=== PATIENT | female | born 1955 | race Caucasian/White ===

== ENCOUNTER 2023-08-20 10:38 | Inpatient (IN) ==
--- NOTE | 2023-08-20 11:50 | Emergency Department Note ---
Impression & Plan ARF (acute renal failure), UTI (urinary tract infection), Hydronephrosis, left ED Provider Note NAME: ALEN HARDING AGE: 68 SEX: F : 1955 ARRIVES VIA: Walk-In INFORMANT: Patient ED PROVIDER(S): Sterling Suero MD CHIEF COMPLAINT: Weakness, confusion, uti. PLAN: Disposition: Admit MEDICAL DECISION MAKING: The patient is a pleasant 68-year-old woman with a past medical history of HTN, anxiety who presents to the emergency department via walk-in accompanied by her son with concern for confusion and generalized weakness, body aches which has been occurring intermittently over the past several weeks initially starting at the end of July related to a urinary tract infection where she was being treated with Bactrim but then had a fall where she was seen at [place] [facility] and then again in follow-up at our facility where her UTI was thought to have persisted and her antibiotic was changed to cefdinir. A right distal radius fracture was also diagnosed. Since then the patient's son reports that she has continued to feel malaise and fatigue and are concerned that her urinary tract infection has returned. They deny any repeat falls. Denies any fevers. She denies any nausea or vomiting or diarrhea. Patient's son reports that she has been drinking fluids but they do not feel as though she is urinating. On my evaluation the patient is fatigued appearing but no distress, afebrile stable vital signs. She appears clinically dry. She has no focal neurologic deficits. Abdomen is nontender. EKG without overt acute ischemia. CXR negative for acute cardiopulmonary process per my personal preliminary review/interpretation. WBC within normal limits. H/H similar to prior. Platelets within normal limits. Chemistry without metabolic acidosis however shows acute renal failure with creatinine of 2.7 with BUN of 33. LFTs without significant abnormality. Initial high-sensitivity troponin was 60, nonspecific with delta 2-hour positive troponin 46. Procalcitonin was elevated at 1.9. UA is suspicious for infection today with positive nitrites, leuk esterase and 1+ bacteria. Review of the patient's prior Emergency Department visit shows that her urine culture did not grow anything however may have been affected by having been Bactrim just prior to this. CT of the ab pelvis was performed and demonstrates 6.2 cm hypodense focus within the upper pole of the left renal sinus and collecting system which could represent the distended renal collecting system or parapelvic cyst which is difficult to assess on noncontrast study however description of moderate dilatation of the upper pole collecting system posteriorly and mild dilatation within the left lower pole collecting system was noted. No obstructing stones were identified. This left-sided hydronephrosis may be related to parapelvic cyst or other type of UPJ J obstruction with repeat CT urogram recommended. Additional note is made of small patchy airspace opacities in the right middle and left lower lobe which may reflect low-grade pneumonitis. Blood cultures were obtained and empiric treatment was initiated with IV ceftriaxone. Given the patient's recurrent urinary tract infections concerned that her hydronephrosis may be related to this and so case was discussed with urology, OLIVIA Olvera with Dr. David MCCOY urology. Agree with close monitoring. They will continue to follow and note and agree with antibiotics and hydration to assess for improvement of renal function for possible repeat CT imaging with contrast for better assessment. If the patient were to become unstable, febrile then more immediate intervention with stenting would be considered. Case was discussed with FELIPA Núñez hospitalist, who will evaluate the patient for admission. Triage Nursing notes reviewed and agree them. Prior/external medical records reviewed Vital Signs: reviewed Differential diagnosis: Infection, dehydration, metabolic abnormality, hypo/hyperglycemia, electrolyte disturbance, anemia, hypoxia, cardiac sources, intracerebral event, toxicologic, neurologic, as well as other pathologies. ER treatment provided: See below. Diagnostics interpreted by me: ECG: Normal sinus rhythm, 88 bpm, no ectopy, nonspecific ST abnormality, no overt ST ovation depression, QTc 534, QRS 82. Cardiac Monitoring: An order for continuous cardiac monitoring was placed and demonstrated ormal sinus rhythm, 88 bpm, no ectopy Laboratory studies: See below Imaging studies: See below Consultation(s): OLIVIA Olvera with Dr. David MCCOY urology FELIPA Núñez hospitalist. HPI: The patient is a pleasant 68-year-old woman with a past medical history of HTN, anxiety who presents to the emergency department via walk-in accompanied by her son with concern for confusion and generalized weakness, body aches which has been occurring intermittently over the past several weeks initially starting at the end of July related to a urinary tract infection where she was being treated with Bactrim but then had a fall where she was seen at [place] [facility] and then again in follow-up at our facility where her UTI was thought to have persisted and her antibiotic was changed to cefdinir. A right distal radius fracture was also diagnosed. Since then the patient's son reports that she has continued to feel malaise and fatigue and are concerned that her urinary tract infection has returned. They deny any repeat falls. Denies any fevers. She denies any nausea or vomiting or diarrhea. Patient's son reports that she has been drinking fluids but they do not feel as though she is urinating. ROS: See above HPI for pertinent positives & negatives. A total of 10 systems reviewed and were otherwise negative. VITALS:See Below PHYSICAL EXAMINATION: GENERAL: Awake, alert, fatigued/uncomfortable-appearing, in no distress HENT: Normocephalic, atraumatic. Oropharynx with dry mucous membranes and otherwise unremarkable. EYES: Normal conjunctiva. Sclera non-icteric. EOMI. No nystamgus. PEARRL. NECK: Supple. No nuchal rigidity. FROM. No JVD. RESPIRATORY: Clear to auscultation. CARDIAC: Regular rate, normal rhythm. Extremities warm and well perfused. Pulses equal. ABDOMEN: Soft, non-distended. No tenderness to palpation. No rebound or guarding. No masses. MUSCULOSKELETAL: Chest examination reveals no tenderness. The back is symmetrical on inspection without obvious abnormality. There is no CVA tenderness to palpation. No joint edema. LOWER EXTREMITIES: Calves are equal size bilaterally and non-tender. No edema. No discoloration. NEURO: No focal sensory or motor deficits noted. SKIN: No rash or jaundice noted. Sterling Suero MD Past Med/Surg History Medical History HTN (hypertension) History of nephrolithiasis Social History Smoking Status: Former smoker Tobacco Type: Cigarettes Hx Alcohol Use: No Hx Substance Use: No Preferred Language: Ukrainian Communication Ability: Effective Financial Adviser Required: No Beliefs That Will Affect Care: None Current Living Situation: Family Feels Safe at Home: Yes Assistive Devices: Glasses Allergies Allergies Allergy/AdvReac Type Severity Reaction Status Date / Time No Known Allergies Allergy Unverified 08/05/23 18:58 Home Meds Home Medications Medication Instructions Recorded Confirmed bupropion HCl 150 mg tablet,12 hr 150 mg PO BID 08/05/23 08/20/23 sustained-release calcium carbonate 600 mg-vitamin 1 tab PO BID 08/05/23 08/20/23 D3 10 mcg (400 unit) tablet (Calcium 600 + D(3)) carvedilol 6.25 mg tablet 6.25 mg PO BID 08/05/23 08/20/23 clonazepam 0.5 mg tablet 0.5 mg PO BID PRN Anxiety 08/05/23 08/20/23 clonidine HCl 0.1 mg tablet 0.1 mg PO PM 08/05/23 08/20/23 duloxetine 60 mg capsule,delayed 60 mg PO BID 08/05/23 08/20/23 release ferrous sulfate 325 mg (65 mg 325 mg PO QAM 08/05/23 08/20/23 iron) tablet (iron) gabapentin 300 mg capsule 300 mg PO BID 08/05/23 08/20/23 losartan 100 mg tablet 100 mg PO QAM 08/05/23 08/20/23 meloxicam 7.5 mg tablet 7.5 mg PO BID 08/05/23 08/20/23 risperidone 1 mg tablet 1 mg PO HS 08/05/23 08/20/23 tolterodine 2 mg tablet 2 mg PO BID 08/05/23 08/20/23 trazodone 100 mg tablet 150 mg PO HS 08/05/23 08/20/23 cefdinir 300 mg capsule 300 mg PO BID 08/20/23 08/20/23 docusate sodium 100 mg capsule 100 mg PO BID 08/20/23 08/20/23 lactobacillus bifidus See Rx Instructions .Route .COMPLEX 08/20/23 08/20/23 Results & Data (ED) Vital Signs Vital Signs - 24 hr 08/20/23 11:00 08/20/23 12:00 08/20/23 12:09 Temperature 36.4 C L Temperature Source Temporal Artery Scan Pulse Rate 89 82 86 Pulse Rate [Apical] Pulse Rhythm [Apical] Pulse Strength [Apical] Respiratory Rate 22 20 Respiratory Effort / Characteristics Non-Labored Spontaneous Respiratory Depth Normal Respiratory Pattern Blood Pressure 102/65 101/61 Blood Pressure [Right Arm] Blood Pressure Mean 77 74 Blood Pressure Mean [Right Arm] Blood Pressure Position [Right Arm] Pulse Oximetry 93 94 Oxygen Delivery Method Room Air Room Air Sepsis New/Unexplained Change in Mental Status No Sepsis Action Taken by Nursing No Action Required 08/20/23 12:23 08/20/23 12:23 08/20/23 12:24 Temperature Temperature Source Pulse Rate Pulse Rate [Apical] 83 Pulse Rhythm [Apical] Regular Pulse Strength [Apical] Normal Respiratory Rate 17 Respiratory Effort / Characteristics Non-Labored Spontaneous Respiratory Depth Normal Respiratory Pattern Regular Blood Pressure Blood Pressure [Right Arm] 101/61 Blood Pressure Mean Blood Pressure Mean [Right Arm] 74 Blood Pressure Position [Right Arm] Semi-fowlers Pulse Oximetry 95 95 95 Oxygen Delivery Method Room Air Room Air Room Air Sepsis New/Unexplained Change in Mental Status Sepsis Action Taken by Nursing 08/20/23 13:00 08/20/23 13:30 08/20/23 14:00 Temperature Temperature Source Pulse Rate 80 82 81 Pulse Rate [Apical] Pulse Rhythm [Apical] Pulse Strength [Apical] Respiratory Rate 24 20 22 Respiratory Effort / Characteristics Respiratory Depth Respiratory Pattern Blood Pressure 119/64 111/67 98/57 L Blood Pressure [Right Arm] Blood Pressure Mean 82 81 70 Blood Pressure Mean [Right Arm] Blood Pressure Position [Right Arm] Pulse Oximetry 96 96 95 Oxygen Delivery Method Room Air Room Air Room Air Sepsis New/Unexplained Change in Mental Status Sepsis Action Taken by Nursing Laboratory Data Attestation: I reviewed the patient's lab results. 08/20/23 11:22 08/20/23 18:14 Lab Results 08/20/23 08/20/23 08/20/23 Range/Units 11:22 12:20 13:07 WBC 8.60 (4.8-10.8) K/ul RBC 4.27 (4.20-5.40) M/uL Hgb 11.6 L (12.0-16.0) g/dl Hct 36.4 L (37.0-47.0) % MCV 85.2 (80.0-100.0) fL MCH 27.2 (25.0-34.0) pg MCHC 31.9 L (32.0-36.0) g/dL RDW Std Deviation 39.1 (36.4-46.3) fL RDW Coeff of Vamsi 12.8 (11.5-14.5) % Plt Count 216 (130-400) K/uL MPV 9.3 L (9.4-12.4) fL Immature Gran % (Auto) 0.7 % Neut % (Auto) 92.2 % Lymph % (Auto) 1.3 % Cannon % (Auto) 2.0 % Eos % (Auto) 3.6 % Baso % (Auto) 0.2 % Neut # (Auto) 7.93 H (1.40-6.50) K/uL Lymph # (Auto) 0.11 L (1.20-3.40) K/uL Cannon # (Auto) 0.17 (0.11-0.59) K/uL Eos # (Auto) 0.31 (0.00-0.50) K/uL Baso # (Auto) 0.02 (0.00-0.20) K/uL Immature Gran # (Auto) 0.06 (0.01-0.20) K/uL PT 12.9 H (9.0-12.0) Seconds INR 1.2 H (0.9-1.1) APTT 32 H (21-31) Seconds PTT Ratio 1.1 Sodium 130 L (136-145) mmol/L Potassium 3.6 (3.5-5.1) mmol/L Chloride 97 L (98-107) mmol/L Carbon Dioxide 25 (21-32) mmol/L Anion Gap 8 (3-11) BUN 33 H (6-23) mg/dl Creatinine 2.72 H (0.6-1.2) mg/dl Est Cr Clr Drug Dosing 20.4 ml/min Est GFR ( Amer) 20.1 ml/min Est GFR (Non-Af Amer) 17.4 ml/min BUN/Creatinine Ratio 12.1 (10-20) Glucose 132 H (70-99(Fasting)) mg/dl Lactate (0.4-2.0) mmol/L Calcium 9.1 (8.6-10.3) mg/dl Phosphorus 4.8 (2.5-4.9) mg/dl Magnesium 1.9 (1.7-2.4) mg/dl Total Bilirubin 1.6 H (0.2-1.0) mg/dl AST 39 (13-39) U/L ALT 43 (7-52) U/L Alkaline Phosphatase 111 H (34-104) U/L Troponin I High Sens 60.7 H* 46.5 H D (0-14) pg/ml Total Protein 6.8 (6.0-8.3) gm/dl Albumin 4.0 (3.4-5.0) gm/dl Globulin 2.8 (2.5-4.0) gm/dl Albumin/Globulin Ratio 1.4 (0.9-2) Procalcitonin 1.90 H (0-0.5) ng/ml TSH 2.882 (0.300-4.500) uIu/ml Urine Color Dark Yellow Urine Appearance Turbid A (Clear) Urine pH 5.0 (4.5-7.5) Ur Specific Watrous 1.023 (1.000-1.030) Urine Protein Trace H (Negative) Urine Glucose (UA) Negative (Negative) Urine Ketones Trace H (Negative) Urine Blood Negative (Negative) Urine Nitrite Positive A (Negative) Urine Bilirubin 1+ H (Negative) Urine Urobilinogen Negative (Negative) Ur Leukocyte Esterase 2+ H (Negative) Urine WBC (Auto) 21-50 H (0-5) /hpf Urine RBC (Auto) 0-2 (0-2) /hpf U Hyaline Cast (Auto) >20 H (0-2) /lpf U Epithel Cells (Auto) 6-10 H (0-2) /hpf Urine Bacteria (Auto) 1+ H (None Seen) SARS-CoV-2 (PCR) NEGATIVE (Negative) Influenza Type A (PCR) Negative (Neg) Influenza Type B (PCR) Negative (Neg) RSV (RT-PCR) Negative (Neg) 08/20/23 Range/Units 13:30 WBC (4.8-10.8) K/ul RBC (4.20-5.40) M/uL Hgb (12.0-16.0) g/dl Hct (37.0-47.0) % MCV (80.0-100.0) fL MCH (25.0-34.0) pg MCHC (32.0-36.0) g/dL RDW Std Deviation (36.4-46.3) fL RDW Coeff of Vamsi (11.5-14.5) % Plt Count (130-400) K/uL MPV (9.4-12.4) fL Immature Gran % (Auto) % Neut % (Auto) % Lymph % (Auto) % Cannon % (Auto) % Eos % (Auto) % Baso % (Auto) % Neut # (Auto) (1.40-6.50) K/uL Lymph # (Auto) (1.20-3.40) K/uL Cannon # (Auto) (0.11-0.59) K/uL Eos # (Auto) (0.00-0.50) K/uL Baso # (Auto) (0.00-0.20) K/uL Immature Gran # (Auto) (0.01-0.20) K/uL PT (9.0-12.0) Seconds INR (0.9-1.1) APTT (21-31) Seconds PTT Ratio Sodium (136-145) mmol/L Potassium (3.5-5.1) mmol/L Chloride (98-107) mmol/L Carbon Dioxide (21-32) mmol/L Anion Gap (3-11) BUN (6-23) mg/dl Creatinine (0.6-1.2) mg/dl Est Cr Clr Drug Dosing ml/min Est GFR ( Amer) ml/min Est GFR (Non-Af Amer) ml/min BUN/Creatinine Ratio (10-20) Glucose (70-99(Fasting)) mg/dl Lactate 0.8 (0.4-2.0) mmol/L Calcium (8.6-10.3) mg/dl Phosphorus (2.5-4.9) mg/dl Magnesium (1.7-2.4) mg/dl Total Bilirubin (0.2-1.0) mg/dl AST (13-39) U/L ALT (7-52) U/L Alkaline Phosphatase (34-104) U/L Troponin I High Sens (0-14) pg/ml Total Protein (6.0-8.3) gm/dl Albumin (3.4-5.0) gm/dl Globulin (2.5-4.0) gm/dl Albumin/Globulin Ratio (0.9-2) Procalcitonin (0-0.5) ng/ml TSH (0.300-4.500) uIu/ml Urine Color Urine Appearance (Clear) Urine pH (4.5-7.5) Ur Specific Watrous (1.000-1.030) Urine Protein (Negative) Urine Glucose (UA) (Negative) Urine Ketones (Negative) Urine Blood (Negative) Urine Nitrite (Negative) Urine Bilirubin (Negative) Urine Urobilinogen (Negative) Ur Leukocyte Esterase (Negative) Urine WBC (Auto) (0-5) /hpf Urine RBC (Auto) (0-2) /hpf U Hyaline Cast (Auto) (0-2) /lpf U Epithel Cells (Auto) (0-2) /hpf Urine Bacteria (Auto) (None Seen) SARS-CoV-2 (PCR) (Negative) Influenza Type A (PCR) (Neg) Influenza Type B (PCR) (Neg) RSV (RT-PCR) (Neg) Administered Medications Acetaminophen (Acetaminophen 325 Mg Tab) 650 mg PO Q4H PRN PRN Reason: Pain or Fever Stop: 09/19/23 15:51 Last Admin: 08/20/23 20:21 Dose: 650 mg Documented By: EFK Bupropion HCl (Bupropion Sr 150 Mg Tabcr) 150 mg PO BID RENE Stop: 09/19/23 20:59 Last Admin: 08/20/23 20:22 Dose: 150 mg Documented By: EFK Carvedilol (Carvedilol 6.25 Mg Tab) 6.25 mg PO BID RENE Stop: 09/19/23 20:59 Last Admin: 08/20/23 20:22 Dose: 6.25 mg Documented By: BROOKEK Clonidine HCl (Clonidine Hcl 0.1 Mg Tab) 0.1 mg PO PM RENE Stop: 09/19/23 20:59 Last Admin: 08/20/23 20:24 Dose: 0.1 mg Documented By: EFK Duloxetine HCl (Duloxetine Hcl 60 Mg Cap) 60 mg PO BID RENE Stop: 09/19/23 20:59 Last Admin: 08/20/23 20:23 Dose: 60 mg Documented By: EFK Gabapentin (Gabapentin 300 Mg Cap) 300 mg PO BID RENE Stop: 09/19/23 20:59 Last Admin: 08/20/23 20:22 Dose: 300 mg Documented By: EFK Parenteral Electrolytes (Plasma-Lyte A Ph 7.4) 1,000 mls @ 120 mls/hr IV .Q8H20M [facility] Stop: 09/19/23 14:44 Last Admin: 08/20/23 15:48 Dose: 120 mls/hr Documented By: FLAQUITA Menthol (Cough Drop (Sugar Free) Ani 24 Ani/1 Box) 1 ani BUCCAL Q2H PRN PRN Reason: Sore Throat Stop: 09/19/23 20:47 Last Admin: 08/20/23 21:02 Dose: 1 ani Documented By: BROOKEK Morphine Sulfate (Morphine Sulfate 4 Mg/Ml 1 Ml Carp\Vial) 4 mg IV Q4H PRN PRN Reason: Severe Pain (7,8,9,10) on NRS Stop: 09/03/23 15:51 Last Admin: 08/20/23 19:07 Dose: 4 mg Documented By: Admin: 08/20/23 16:07 Dose: 4 mg Documented By: FLAQUITA Oxybutynin Chloride (Oxybutynin Chloride Xl 5 Mg Tabcr) 10 mg PO DAILY RENE Stop: 09/19/23 20:59 Last Admin: 08/20/23 21:03 Dose: 10 mg Documented By: SERA Risperidone (Risperidone 1 Mg Tablet) 1 mg PO HS RENE Stop: 09/19/23 20:59 Last Admin: 08/20/23 20:23 Dose: 1 mg Documented By: SERA Trazodone HCl (Trazodone Hcl 100 Mg Tab) 200 mg PO HS RENE Stop: 09/19/23 20:59 Last Admin: 08/20/23 20:23 Dose: 200 mg Documented By: SERA Discontinued Medications Fentanyl Citrate (Fentanyl Citrate Pf 100 Mcg/2 Ml Vial) 50 mcg IV NOW STA Stop: 08/20/23 13:12 Last Admin: 08/20/23 13:23 Dose: 50 mcg Documented By: WOO Hydromorphone HCl (Hydromorphone Inj 0.5 Mg/0.5 Ml Syr) 0.5 mg IV NOW ONE Stop: 08/20/23 20:46 Last Admin: 08/20/23 21:02 Dose: 0.5 mg Documented By: SERA Sodium Chloride (Nss) 1,000 mls @ 999 mls/hr IV .Q1H1M ONE Stop: 08/20/23 12:49 Last Infusion: 08/20/23 12:48 Dose: Infused Documented By: Admin: 08/20/23 11:55 Dose: 999 mls/hr Documented By: SIMRAN Sodium Chloride (Nss) 1,000 mls @ 125 mls/hr IV .Q8H RENE Stop: 09/19/23 12:14 Last Infusion: 08/20/23 14:51 Dose: Infused Documented By: Admin: 08/20/23 12:44 Dose: 125 mls/hr Documented By: SIMRAN Acetaminophen (Ofirmev) 1,000 mg in 100 mls @ 400 mls/hr IV NOW STA Stop: 08/20/23 12:20 Last Infusion: 08/20/23 12:45 Dose: Infused Documented By: Admin: 08/20/23 12:14 Dose: 400 mls/hr Documented By: SIMRAN Ceftriaxone Sodium (Rocephin) 2,000 mg in 50 mls @ 100 mls/hr IV NOW STA Stop: 08/20/23 13:43 Last Infusion: 08/20/23 14:16 Dose: Infused Documented By: Admin: 08/20/23 13:24 Dose: 100 mls/hr Documented By: WOO Parenteral Electrolytes (Plasma-Lyte A Ph 7.4) 1,000 mls @ 999 mls/hr IV .Q1H1M ONE Stop: 08/20/23 15:33 Last Infusion: 08/20/23 15:54 Dose: Infused Documented By: Admin: 08/20/23 14:49 Dose: 999 mls/hr Documented By: WOO Ampicillin Sodium/Sulbactam Sodium 3,000 mg/ Sodium Chloride 100 mls @ 200 mls/hr IV NOW STA Stop: 08/20/23 16:18 Last Infusion: 08/20/23 16:48 Dose: Infused Documented By: Admin: 08/20/23 16:06 Dose: 200 mls/hr Documented By: FLAQUITA Ondansetron HCl (Ondansetron Inj 2 Mg/Ml 2 Ml Vial) 4 mg IV NOW STA Stop: 08/20/23 13:17 Last Admin: 08/20/23 13:23 Dose: 4 mg Documented By: WOO Imaging Data Radiologist's Impression: Chest X-Ray 08/20/23 11:07 SINGLE VIEW CHEST CLINICAL HISTORY: Atypical chest pain. FINDINGS: An AP, portable, upright chest radiograph is compared to study dated 08/05/2023. The cardiomediastinal silhouette is top normal for projection noting atherosclerotic calcification of the thoracic aorta. Chronic interstitial thickening is similar to previous. There is chronic elevation of the right hemidiaphragm. Scarring/atelectasis is noted at both lung bases. No airspace consolidation or large pleural effusion is identified. No pneumothorax is seen. The skeletal structures are osteopenic. The bony thorax is grossly intact. IMPRESSION: No acute cardiopulmonary abnormality. ACT 112: Negative or not required by law. Electronically signed by: Jese De Los Santos M.D. 08/20/2023 11:56 AM Abdomen/Pelvis CT 08/20/23 12:[address] WITHOUT CONTRAST CT DOSE: HISTORY: left flank pain, fall 08/03, arf TECHNIQUE: Multiaxial CT images of the abdomen and pelvis were performed without contrast. A dose lowering technique was utilized adhering to the principles of ALARA. COMPARISON STUDY: None. FINDINGS: Trace right pleural effusion and a trace pericardial effusion. The ascending thoracic aorta measures up to 4.3 cm in diameter. Small patchy airspace opacities within the base the right middle lobe and left lower lobe. This favors a low-grade pneumonitis. There is a peripheral 7 mm nodule within the left lower lobe on image 78. No pneumoperitoneum. No pneumatosis. L2 vertebral body hemangioma is noted. No suspicious lytic or blastic osseous lesions. No acute fractures identified. The unenhanced liver, spleen, adrenal glands, pancreas, and gallbladder are unremarkable. Normal right kidney. No right-sided hydronephrosis. There are 2 stones within the lower pole the left kidney with the largest measuring 4 mm. There is abnormal appearance to the left kidney. There is a 6.2 cm hypodense focus within the upper pole of the left renal sinus/collecting system. This could represent the distended renal collecting system or parapelvic cyst. This is difficult to assess on this noncontrast study. There is also moderate dilatation of the upper pole collecting system posteriorly and mild dilatation within the left lower pole collecting system. No obstructing stones identified. Therefore, this left-sided hydronephrosis could be due to the possible parapelvic cyst or a UPJ type obstruction. No ureteral calculi. Mild bladder wall thickening may be due to underdistention. The uterus and bilateral adnexa are unremarkable. Suboptimal evaluation for bowel pathology due to the lack of intravenous and oral contrast. However, there is no definite bowel wall thickening or obstruction. A few colonic diverticula. No evidence for acute diverticulitis. [id number] fecal retention. Normal appendix. IMPRESSION: 1. No acute traumatic process within the abdomen or pelvis. 2. There is abnormal appearance to the left kidney. There is a 6.2 cm hypodense focus within the upper pole of the left renal sinus/collecting system. This could represent the distended renal collecting system or parapelvic cyst. This is difficult to assess on this noncontrast study. There is also moderate dilatation of the upper pole collecting system posteriorly and mild dilatation within the left lower pole collecting system. No obstructing stones identified. Therefore, this left-sided hydronephrosis could be due to the possible parapelvic cyst or a UPJ type obstruction. Follow-up nonemergent CT urogram recommended for further evaluation. 3. Left-sided nephrolithiasis. 4. Small patchy airspace opacities within the right middle lobe and left lower lobe likely representing a low-grade pneumonitis. 5. An indeterminate 7 mm nodule within the left lower lobe. Please refer to the chart below. 6. No bowel wall thickening or obstruction. 7. Additional findings as described above. Please refer to below summary of Fleischner criteria recommendations for follow- up of incidental CT nodules (Janis Dean, Guidelines for management of small pulmonary nodules detected on CT scans: A statement from the Fleischner Society, Radiology 237: [phone].) SOLID NODULES Solitary nodule size: <6 mm * Low risk patients: no follow-up needed * high risk patients: optional CT at 12 months Solitary nodule size: 6-8 mm * Low risk patients: follow-up at 6-12 months, then consider further follow-up at 18-24 months * high risk patients: initial follow-up CT at 6-12 months and then at 18-24 months if no change Solitary nodule size: >8 mm * either low or high risk patients - consider follow-up CT at 3 months, and/or CT-PET, and/or biopsy Multiple nodules size: <6 mm * Low risk patients: no routine follow-up * high risk patients: optional CT at 12 months Multiple nodules size: 6-8 mm * Low risk patients: follow-up at 3-6 months, then consider further follow-up at 18-24 months * high risk patients: follow-up at 3-6 months, then at 18-24 months if no change Multiple nodules size: >8 mm * Low risk patients: follow-up at 3-6 months, then consider further follow-up at 18-24 months * high risk patients: follow-up at 3-6 months, then at 18-24 months if no change Note: newly detected indeterminate nodule in persons 35 years of age or older. * Low risk patients: minimal or absent history of smoking and/or other known risk factors * high risk patients: history of smoking or of other known risk factors (e.g. first degree relative with lung cancer, or exposure to asbestos, radon, uranium) * if a nodule up to 8 mm is partly solid or is ground glass further follow-up is required after 24 months to exclude possible slow growing adenocarcinoma (JEWELS) SUBSOLID NODULES Solitary pure ground-glass nodule * nodule size <6 mm - no CT follow-up required * nodule size >=6 mm - follow-up CT at 6-12 months, then every 2 years until 5 years Solitary part-solid nodule * nodule size <6 mm - no CT follow-up required * nodule size >=6 mm - follow-up CT at 3-6 months. If unchanged, and solid component remains <6 mm, then annual follow-up for 5 years Multiple subsolid nodules * nodule size <6 mm - follow-up CT at 3-6 months, consider further follow-up at 2 and 4 years if stable * nodule size >=6 mm - follow-up CT at 3-6 months, subsequent management based on the most suspicious nodule(s) ACT 112: Positive. There are findings on this exam that require communication between the performing entity and the patient following Patient Test Result Information Act ([place] Act 112) guidelines. Electronically signed by: Amilcar Calvo M.D. 08/20/2023 1:[address] 08/20/23 12:[address] DOSE: 1998.16 mGy.cm HISTORY: confusion TECHNIQUE: Multiaxial CT images of the head were performed without the use of intravenous contrast. Automated exposure control was utilized for this study. A dose lowering technique was utilized adhering to the principles of ALARA. Comparison: Head CT 08/05/2023. Findings: The paranasal sinuses and mastoid air cells are clear. The calvarium and skull base are intact. There is no mass, hematoma, midline shift, acute infarct. White matter hypodensity is nonspecific but suggestive of microvascular ischemic change. The ventricles and sulci demonstrate mild age-related involutional changes. Impression: No significant change compared to the prior study. No acute intracranial abnormality. ACT 112: Negative or not required by law. Electronically signed by: Amilcar Calvo M.D. 08/20/2023 12:48 PM Discharge Plan Visit Data Chief Complaint: Illness Stated Complaint: BODY ACHES AND PAINS, SORE THROAT, HEADACHE, MEMOR ED Provider: Sterling Suero Discharge Problem: ARF (acute renal failure), UTI (urinary tract infection), Hydronephrosis, left Patient Disposition: Admitted As Inpatient Discharge Instructions Interventions: ED Discharge Assessment Last Done: 08/20/23 15:40 Discharge Problem: ARF (acute renal failure) Qualifiers: Acute renal failure type: unspecified Qualified Code(s): N17.9 - Acute kidney failure, unspecified UTI (urinary tract infection) Qualifiers: Urinary tract infection type: site unspecified Hematuria presence: without hematuria Qualified Code(s): N39.0 - Urinary tract infection, site not specified
[2023-08-20 11:51] LABS: Hematocrit (blood only) 36.4 % (37.0-47.0); Hemoglobin 11.6 g/dl (12.0-16.0); Mean Corpuscular Hemoglobin 27.2 pg (25.0-34.0); Mean Corpuscular Hgb Conc 31.9 g/dL (32.0-36.0); Mean Corpuscular Volume 85.2 fL (80.0-100.0); Mean Platelet Volume 9.3 fL (9.4-12.4); Platelet Count 216 K/uL (130-400); RDW Coefficient of Variation 12.8 % (11.5-14.5); RDW Standard Deviation 39.1 fL (36.4-46.3); Red Blood Count 4.27 M/uL (4.20-5.40)
[2023-08-20] MEDS: SODIUM CHLORIDE 0.9% 1,000 ML IV ONE (11:55)
--- NOTE | 2023-08-20 11:57 | XRay Report ---
SINGLE VIEW CHEST CLINICAL HISTORY: Atypical chest pain. FINDINGS: An AP, portable, upright chest radiograph is compared to study dated 08/05/2023. The cardiom ediastinal silhouette is top normal for projection noting atherosclerotic calcification of the thorac ic aorta. Chronic interstitial thickening is similar to previous. There is chronic elevation of the r ight hemidiaphragm. Scarring/atelectasis is noted at both lung bases. No airspace consolidation or la rge pleural effusion is identified. No pneumothorax is seen. The skeletal structures are osteopenic. The bony thorax is grossly intact. IMPRESSION: No acute cardiopulmonary abnormality. ACT 112: Negative or not required by law. Electronically signed by: Jese De Los Santos M.D. 08/20/2023 11:56 AM
[2023-08-20 12:01] LABS: Albumin Globulin Ratio 1.4 (0.9-2); BUN Creatinine Ratio 12.1 (10-20); Bilirubin,Total 1.6 mg/dl (0.2-1.0); Calcium 9.1 mg/dl (8.6-10.3); Creatinine Clr Calc Pharmacy 20.4 ml/min; Est GFR (African American) 20.1 ml/min; Est GFR (Non-African American) 17.4 ml/min; Globulin 2.8 gm/dl (2.5-4.0); Potassium 3.6 mmol/L (3.5-5.1); Total Protein 6.8 gm/dl (6.0-8.3)
[2023-08-20 12:14] LABS: Influenza A virus by PCR Negative (Neg); Influenza B virus by PCR Negative (Neg); RSV by PCR Negative (Neg); SARS CoV2 RNA(COVID-19) Ceph NEGATIVE (Negative)
[2023-08-20] MEDS: ACETAMINOPHEN 1,000 MG/100 ML VIAL IV STA (12:14)
[2023-08-20 12:16] LABS: INR 1.2 (0.9-1.1); Partial Thromboplastin Ratio 1.1; Partial Thromboplastin Time 32 Seconds (21-31); Prothrombin Time 12.9 Seconds (9.0-12.0); Troponin I High Sensitivity 60.7 pg/ml (0-14)
[2023-08-20 12:22] LABS: Magnesium 1.9 mg/dl (1.7-2.4); Phosphorus 4.8 mg/dl (2.5-4.9)
[2023-08-20 12:36] LABS: Thyroid Stimulating Hormone 2.882 uIu/ml (0.300-4.500)
[2023-08-20] MEDS: SODIUM CHLORIDE 0.9% 1,000 ML IV SCH (12:44)
--- NOTE | 2023-08-20 12:49 | CT Scan Report ---
HEAD CT NONCONTRAST CT DOSE: 1998.16 mGy.cm HISTORY: confusion TECHNIQUE: Multiaxial CT images of the head were performed without the use of intravenous contrast. A utomated exposure control was utilized for this study. A dose lowering technique was utilized adheri ng to the principles of ALARA. Comparison: Head CT 08/05/2023. Findings: The paranasal sinuses and mastoid air cells are clear. The calvarium and skull base are int act. There is no mass, hematoma, midline shift, acute infarct. White matter hypodensity is nonspecifi c but suggestive of microvascular ischemic change. The ventricles and sulci demonstrate mild age-rela melisa involutional changes. Impression: No significant change compared to the prior study. No acute intracranial abnormality. ACT 112: Negative or not required by law. Electronically signed by: Amilcar Calvo M.D. 08/20/2023 12:48 PM
--- NOTE | 2023-08-20 13:07 | CT Scan Report ---
ABDOMEN AND PELVIS CT WITHOUT CONTRAST CT DOSE: HISTORY: left flank pain, fall 08/03, arf TECHNIQUE: Multiaxial CT images of the abdomen and pelvis were performed without contrast. A dose lo wering technique was utilized adhering to the principles of ALARA. COMPARISON STUDY: None. FINDINGS: Trace right pleural effusion and a trace pericardial effusion. The ascending thoracic aorta measures up to 4.3 cm in diameter. Small patchy airspace opacities within the base the right middle lobe and left lower lobe. This favors a low-grade pneumonitis. There is a peripheral 7 mm nodule with in the left lower lobe on image 78. No pneumoperitoneum. No pneumatosis. L2 vertebral body hemangioma is noted. No suspicious lytic or blastic osseous lesions. No acute fractures identified. The unenhan kat liver, spleen, adrenal glands, pancreas, and gallbladder are unremarkable. Normal right kidney. N o right-sided hydronephrosis. There are 2 stones within the lower pole the left kidney with the large st measuring 4 mm. There is abnormal appearance to the left kidney. There is a 6.2 cm hypodense focus within the upper pole of the left renal sinus/collecting system. This could represent the distended renal collecting system or parapelvic cyst. This is difficult to assess on this noncontrast study. Th ere is also moderate dilatation of the upper pole collecting system posteriorly and mild dilatation w ithin the left lower pole collecting system. No obstructing stones identified. Therefore, this left-s ided hydronephrosis could be due to the possible parapelvic cyst or a UPJ type obstruction. No ureter al calculi. Mild bladder wall thickening may be due to underdistention. The uterus and bilateral adne xa are unremarkable. Suboptimal evaluation for bowel pathology due to the lack of intravenous and ora l contrast. However, there is no definite bowel wall thickening or obstruction. A few colonic diverti cula. No evidence for acute diverticulitis. Wfvb-[id number] fecal retention. Normal appendix. IMPRESSION: 1. No acute traumatic process within the abdomen or pelvis. 2. There is abnormal appearance to the left kidney. There is a 6.2 cm hypodense focus within the uppe r pole of the left renal sinus/collecting system. This could represent the distended renal collecting system or parapelvic cyst. This is difficult to assess on this noncontrast study. There is also mode rate dilatation of the upper pole collecting system posteriorly and mild dilatation within the left l ower pole collecting system. No obstructing stones identified. Therefore, this left-sided hydronephro sis could be due to the possible parapelvic cyst or a UPJ type obstruction. Follow-up nonemergent CT urogram recommended for further evaluation. 3. Left-sided nephrolithiasis. 4. Small patchy airspace opacities within the right middle lobe and left lower lobe likely representi ng a low-grade pneumonitis. 5. An indeterminate 7 mm nodule within the left lower lobe. Please refer to the chart below. 6. No bowel wall thickening or obstruction. 7. Additional findings as described above. Please refer to below summary of Fleischner criteria recommendations for follow-up of incidental CT n odules (Janis Dean, Guidelines for management of small pulmonary nodules detected on CT scans: A sta tement from the Fleischner Society, Radiology 237: [phone].) SOLID NODULES Solitary nodule size: <6 mm * Low risk patients: no follow-up needed * high risk patients: optional CT at 12 months Solitary nodule size: 6-8 mm * Low risk patients: follow-up at 6-12 months, then consider further follow-up at 18-24 months * high risk patients: initial follow-up CT at 6-12 months and then at 18-24 months if no change Solitary nodule size: >8 mm * either low or high risk patients - consider follow-up CT at 3 months, and/or CT-PET, and/or biopsy Multiple nodules size: <6 mm * Low risk patients: no routine follow-up * high risk patients: optional CT at 12 months Multiple nodules size: 6-8 mm * Low risk patients: follow-up at 3-6 months, then consider further follow-up at 18-24 months * high risk patients: follow-up at 3-6 months, then at 18-24 months if no change Multiple nodules size: >8 mm * Low risk patients: follow-up at 3-6 months, then consider further follow-up at 18-24 months * high risk patients: follow-up at 3-6 months, then at 18-24 months if no change Note: newly detected indeterminate nodule in persons 35 years of age or older. * Low risk patients: minimal or absent history of smoking and/or other known risk factors * high risk patients: history of smoking or of other known risk factors (e.g. first degree relative with lung cancer, or exposure to asbestos, radon, uranium) * if a nodule up to 8 mm is partly solid or is ground glass further follow-up is required after 24 m onths to exclude possible slow growing adenocarcinoma (JEWELS) SUBSOLID NODULES Solitary pure ground-glass nodule * nodule size <6 mm - no CT follow-up required * nodule size >=6 mm - follow-up CT at 6-12 months, then every 2 years until 5 years Solitary part-solid nodule * nodule size <6 mm - no CT follow-up required * nodule size >=6 mm - follow-up CT at 3-6 months. If unchanged, and solid component remains <6 mm, then annual follow-up for 5 years Multiple subsolid nodules * nodule size <6 mm - follow-up CT at 3-6 months, consider further follow-up at 2 and 4 years if sta ble * nodule size >=6 mm - follow-up CT at 3-6 months, subsequent management based on the most suspiciou s nodule(s) ACT 112: Positive. There are findings on this exam that require communication between the performing entity and the patient following Patient Test Result Information Act ([place] Act 112) guidelines. Electronically signed by: Amilcar Calvo M.D. 08/20/2023 1:04 PM
[2023-08-20 13:09] LABS: Appearance Urine Turbid (Clear); Bilirubin Urine 1+ (Negative); Blood Urine Negative (Negative); Cast Urine Automated >20 /lpf (0-2); Color Urine Dark Yellow; Glucose Urine UA Negative (Negative); Ketones Urine Trace (Negative); Leukocyte Esterase Urine 2+ (Negative); Nitrite Urine Positive (Negative); Protein Urine Trace (Negative); RBC Urine Automated 0-2 /hpf (0-2); Specific Gravity Urine 1.023 (1.000-1.030); Urobilinogen Urine Negative (Negative); WBC Urine Automated 21-50 /hpf (0-5)
[2023-08-20 13:12] LABS: Basophils # (auto) 0.02 K/uL (0.00-0.20); Basophils % (auto) 0.2 %; Eosinophils # (auto) 0.31 K/uL (0.00-0.50); Eosinophils % (auto) 3.6 %; Immature Granulocytes # (auto) 0.06 K/uL (0.01-0.20); Immature Granulocytes % (auto) 0.7 %; Lymphocytes # (auto) 0.11 K/uL (1.20-3.40); Lymphocytes % (auto) 1.3 %; Monocytes # (auto) 0.17 K/uL (0.11-0.59); Neutrophils # (auto) 7.93 K/uL (1.40-6.50); Neutrophils % (auto) 92.2 %
[2023-08-20 13:13] LABS: Bacteria Urine Automated 1+ (None Seen)
[2023-08-20] MEDS: ONDANSETRON INJ 2 MG/ML 2 ML VIAL IV STA (13:23)
[2023-08-20] MEDS: fentaNYL citrate PF 100 MCG/2 ML VIAL IV STA (13:23)
[2023-08-20] MEDS: cefTRIAXone SODIUM 2,000 MG/50 ML BAG IV STA (13:24)
--- NOTE | 2023-08-20 14:13 | Urology Consultation ---
Date of Consultation August 20, 2023 Assessment & Plan (1) UTI (urinary tract infection): (2) ARF (acute renal failure): (3) Hydronephrosis, left: Plan 68yo F admitted with ARF and suspected UTI. CT abd pelvis on admission notable for left renal dilatation/hydronephrosis, possibly due to parapelvic cyst or UPJ type obstruction. No obstructing stones were identified. She is afebrile and hemodynamically stable at present. Labs shows no leukocytosis and creatinine 2.72 (previously 1.36). Urinalysis appears infected. Urine/blood cultures pending. Received Rocephin in the ER, now switched to Unasyn Voiding spontaneously, continue to monitor. Bladder scan PRN. Plan- No plan for intervention today unless patient becomes febrile/unstable. Elevated creatinine possibly due to L hydro, poor p.o. intake, UTI. Will continue to trend. If no improvement in creatinine, will consider ureteral stent placement. Continue supportive care. Continue antibiotics and tailor as culture data comes available. Continue to trend labs. Repeat BMP ordered for 6pm. NPO until repeat labs this evening and at midnight for reassessment in AM. Please consult our service urgently if patient develops fever or other acute changes as this may necessitate urgent surgical intervention. Discussed with hospital team. Urology will follow. Plan of care reviewed with Dr. Hernandez, on-call urologist. History of Present Illness History of Present Illness 68 year old female who presented to the ED today 08/20/23 with ill feeling, fatigue/weakness. Patient/son report she was on Bactrim for treatment of UTI but stopped d/t aches/discomfort. Her UTI symptoms returned and she was started on Cefdinir by PCP but developed worsening symptoms including generalized myalgias, weakness, headache, sore throat which prompted her ED visit. On arrival to the ED she was afebrile and hemodynamically stable. Lab work showing no leukocytosis and an ALISSA of 2.72 (previously 1.36). Lactic normal. Na 130. Urinalysis with negative blood, +nitrite, 2+LE, WBC 21-50, 6-10 Epis, 1+bacteria. Urine and blood cultures collected and pending. ED course: IVF, Zofran, Fentanyl, Rocephin. Patient being admitted to medicine service. CT abdomen pelvis w/o con- 1. No acute traumatic process within the abdomen or pelvis. 2. There is abnormal appearance to the left kidney. There is a 6.2 cm hypodense focus within the upper pole of the left renal sinus/collecting system. This could represent the distended renal collecting system or parapelvic cyst. This is difficult to assess on this noncontrast study. There is also moderate dilatation of the upper pole collecting system posteriorly and mild dilatation within the left lower pole collecting system. No obstructing stones identified. Therefore, this left-sided hydronephrosis could be due to the possible parapelvic cyst or a UPJ type obstruction. Follow-up nonemergent CT urogram recommended for further evaluation. 3. Left-sided nephrolithiasis. 4. Small patchy airspace opacities within the right middle lobe and left lower lobe likely representing a low-grade pneumonitis. 5. An indeterminate 7 mm nodule within the left lower lobe. Please refer to the chart below. 6. No bowel wall thickening or obstruction. 7. Additional findings as described above. Patient was examined at bedside in the ED. Son at bedside. No acute distress. She denies fever, chills, nausea, vomiting. Denies hematuria or dysuria. She does report some difficulty voiding. Denies urinary frequency. She reports generalized myalgias. Also reports some Left flank/back discomfort. Denies abdominal or suprapubic pain. Patient/son report recent hx of frequent UTI. She reports a history of kidney stones. Had treatment in [place], [place] approx 1 year ago. Patient/family unsure of exact details. She does not currently follow with a urologist. Allergies Allergy/AdvReac Type Severity Reaction Status Date / Time No Known Allergies Allergy Unverified 08/05/23 18:58 Home Medications Medication Instructions Recorded Confirmed Type bupropion HCl 150 mg tablet,12 hr 150 mg PO BID 08/05/23 08/20/23 History sustained-release calcium carbonate 600 mg-vitamin 1 tab PO BID 08/05/23 08/20/23 History D3 10 mcg (400 unit) tablet (Calcium 600 + D(3)) carvedilol 6.25 mg tablet 6.25 mg PO BID 08/05/23 08/20/23 History clonazepam 0.5 mg tablet 0.5 mg PO BID PRN Anxiety 08/05/23 08/20/23 History clonidine HCl 0.1 mg tablet 0.1 mg PO PM 08/05/23 08/20/23 History duloxetine 60 mg capsule,delayed 60 mg PO BID 08/05/23 08/20/23 History release ferrous sulfate 325 mg (65 mg 325 mg PO QAM 08/05/23 08/20/23 History iron) tablet (iron) gabapentin 300 mg capsule 300 mg PO BID 08/05/23 08/20/23 History losartan 100 mg tablet 100 mg PO QAM 08/05/23 08/20/23 History meloxicam 7.5 mg tablet 7.5 mg PO BID 08/05/23 08/20/23 History risperidone 1 mg tablet 1 mg PO HS 08/05/23 08/20/23 History tolterodine 2 mg tablet 2 mg PO BID 08/05/23 08/20/23 History trazodone 100 mg tablet 150 mg PO HS 08/05/23 08/20/23 History cefdinir 300 mg capsule 300 mg PO BID 08/20/23 08/20/23 History docusate sodium 100 mg capsule 100 mg PO BID 08/20/23 08/20/23 History lactobacillus bifidus See Rx Instructions .Route .COMPLEX 08/20/23 08/20/23 History Patient History Medical History HTN (hypertension) History of nephrolithiasis Social History Smoking Status: Never smoker Preferred Language: Turkish Feels Safe at Home: Yes Review of Systems Review of Systems: All systems reviewed & are unremarkable except as noted in HPI & below Physical Exam Constitutional: well developed and well nourished; no acute distress Neck: normal visual inspection Respiratory: normal respiratory effort; no respiratory distress and no labored breathing Gastrointestinal (Abdomen): Percussion/Palpation: abdomen soft; abdomen nontender Musculoskeletal: Head/Neck/Chest: normocephalic Skin: No visible rashes or lesions to exposed skin areas Neurologic: moves all extremities and awake Psychiatric: A+Ox3, euthymic affect Results & Data Vital Signs (Past 12 Hours) Vital Signs Temp Pulse Pulse Resp BP BP Pulse Ox 08/20/23 13:30 82 20 111/67 96 08/20/23 13:00 80 24 119/64 96 08/20/23 12:24 83 17 101/61 95 04/15/24 12:23 95 08/20/23 12:23 95 08/20/23 12:09 86 08/20/23 12:00 82 20 101/61 94 08/20/23 11:00 36.4 C L 89 22 102/65 93 O2 Del Method 08/20/23 13:30 Room Air 08/20/23 13:00 Room Air 08/20/23 12:24 Room Air 08/20/23 12:23 Room Air 08/20/23 12:23 Room Air 08/20/23 12:09 08/20/23 12:00 Room Air 08/20/23 11:00 Room Air PG Care Time/CCT Total # of Minutes Spent Total Time Spent with Patient: Total time spent is greater than 50% in coordination of care (as documented) at patient's floor/unit and/or counseling patient: Coding Level of Care Code 37897 INT INP/OBS CARE 2/55MIN Diagnoses UTI (urinary tract infection) N39.0 ARF (acute renal failure) N17.9 Hydronephrosis, left N13.30
--- NOTE | 2023-08-20 14:43 | History & Physical Report ---
Date of Service August 20, 2023 Assessment & Plan (1) ARF (acute renal failure): Plan: - Last Cr 1.36 - Admit ALISSA of 2.72 - CT w/ L dilation/hydro, ?UPJ obstruction vs parapelvic cyst. Different includes obstructive with left hydro as above, NSAID induced with history of meloxicam use, prerenal with poor p.o. intake and UTI - Urology following. CT urogram pending renal funciton improvement - Pt also recently on bactrim, only took 2 days of this, with some aches/ discomfort while on this. This was d/kat. Treatment of UTI as below Potassium is within normal range, no evidence of volume overload. No indication for dialysis (2) History of nephrolithiasis: (3) UTI (urinary tract infection): Plan: - UA infected appearing. Was on bactrim, and recently on cefdinir just prior to admit --> recieved rocephin in the ER; given she was on cefdinir while worsening will switch to Unasyn - w/ hypotension, infected UA. Lactic normal. Denies hx of CHF. 30cc/kilo IBW 1636cc copmleted following additional 1L of plasmalyte - PCT 1.9 - No respiratory symptoms, although does have some ?opacities on lung johnson in CT above. Chest x-ray does not show any lobar pneumonia. Would be covered with Unasyn which is already ordered for UTI. Quad screen negative. - had recent UTI w/ a cx with Dr. Peetrs at [facility] in [place]. (4) HTN (hypertension): Plan: - Clonidine continued due to risk of withdrawal. ARB held for ALISSA/hypotension. Carvedilol continued due to risk of beta-rafael withdrawal Blood pressure improving following additional liter bolus of fluids. Maintenance continued. Plan Stable issues: Anxiety: Home bupropion/clonidine/risperidone/duloxetine continued DVT prophylaxis: Heparin Disposition: Medical/telemetry given troponin elevation CODE STATUS: Full code Diet: N.p.o. until 6:00 BMP, if improving then may have full liquids until midnight then n.p.o. for urology in the morning. If worsening keep n.p.o., notify urology History of Present Illness Primary Care Provider: Eren Peters MD [place] is a 68-year-old female with past medical history of hypertension who resides with her son who was on cefdinir as an outpatient for UTI, but has deve loped worsening achiness, headache, sore throat, loss of taste, and weakness. In the ER she does not have a leukocytosis, is hyponatremic at 130 last 134, has an ALISSA with creatinine 2.72 with only known prior level 1.36, troponin downtrending from 60.7-46.5 following fluids, normal lactate, and a procalcitonin of 1.9 and infected versus contaminated appearing UA and negative quad screen was recommended for admission for UTI. Head CT is with no acute finding CTA/P possible UPJ obstruction or parapelvic cyst requiring nonemergent CT urogram for further evaluation, small right middle lobe and left lower lobe patchy opacities suggestive of pneumonitis, and a left lower lobe nodule +difficulty voiding, new. +oliguria. No dysuria or frequency. +weakness, fatigue. No cough. No chest pain or respiratory symptoms. Does endorse some sore throat. No n/v. no sputum production Reports he has a past history of high blood pressure and kidney stones, some memory issues and anxiety. She takes risperidone/bupropion/Duloxetine for anxiety takes carvedilol, clonidine, losartan for blood pressure although notes clonidine use the only thing that seems to work consistently Medical History: Reviewed Medications: Reviewed Surgical History: Reviewed Family history: Reviewed Allergies: Reviewed Social History:no tobacco/etoh Code Status:full Allergies Allergy/AdvReac Type Severity Reaction Status Date / Time No Known Allergies Allergy Unverified 08/05/23 18:58 Home Medications Medication Instructions Recorded Confirmed Type bupropion HCl 150 mg tablet,12 hr 150 mg PO BID 08/05/23 08/20/23 History sustained-release calcium carbonate 600 mg-vitamin 1 tab PO BID 08/05/23 08/20/23 History D3 10 mcg (400 unit) tablet (Calcium 600 + D(3)) carvedilol 6.25 mg tablet 6.25 mg PO BID 08/05/23 08/20/23 History clonazepam 0.5 mg tablet 0.5 mg PO BID PRN Anxiety 08/05/23 08/20/23 History clonidine HCl 0.1 mg tablet 0.1 mg PO PM 08/05/23 08/20/23 History duloxetine 60 mg capsule,delayed 60 mg PO BID 08/05/23 08/20/23 History release ferrous sulfate 325 mg (65 mg 325 mg PO QAM 08/05/23 08/20/23 History iron) tablet (iron) gabapentin 300 mg capsule 300 mg PO BID 08/05/23 08/20/23 History losartan 100 mg tablet 100 mg PO QAM 08/05/23 08/20/23 History meloxicam 7.5 mg tablet 7.5 mg PO BID 08/05/23 08/20/23 History risperidone 1 mg tablet 1 mg PO HS 08/05/23 08/20/23 History tolterodine 2 mg tablet 2 mg PO BID 08/05/23 08/20/23 History trazodone 100 mg tablet 200 mg PO HS 08/05/23 08/20/23 History cefdinir 300 mg capsule 300 mg PO BID 08/20/23 08/20/23 History docusate sodium 100 mg capsule 100 mg PO BID 08/20/23 08/20/23 History lactobacillus bifidus See Rx Instructions .Route .COMPLEX 08/20/23 08/20/23 History Past Med/Surg History Medical History HTN (hypertension) History of nephrolithiasis Social History Smoking Status: Never smoker Preferred Language: Sami Feels Safe at Home: Yes Physical Exam Physical Exam: General: A&Ox3. NAD. Cooperative. HEENT: Atraumatic, normocephalic. Pulm: CTAB A&P. -wheezes, -rales, -rhonchi. Symmetrical chest rise. No increased work of breathing. No respiratory distress. Cardiac: RRR, -mrg. Radial pulses intact and symmetrical. Abdominal: Nontender, nondistended, soft. BS present. Results & Data Results & Data Vital Signs (Past 12 Hours) Vital Signs Temp Pulse Pulse Resp BP BP Pulse Ox 08/20/23 14:00 81 22 98/57 L 95 08/20/23 13:30 82 20 111/67 96 08/20/23 13:00 80 24 119/64 96 08/20/23 12:24 83 17 101/61 95 08/20/23 12:23 95 08/20/23 12:23 95 08/20/23 12:09 86 08/20/23 12:00 82 20 101/61 94 08/20/23 11:00 36.4 C L 89 22 102/65 93 O2 Del Method 08/20/23 14:00 Room Air 08/20/23 13:30 Room Air 08/20/23 13:00 Room Air 08/20/23 12:24 Room Air 08/20/23 12:23 Room Air 08/20/23 12:23 Room Air 08/20/23 12:09 08/20/23 12:00 Room Air 08/20/23 11:00 Room Air Code Status & VTE Plan VTE Prophylaxis Plan VTE Prophylaxis will be ordered: Yes PG Care Time/CCT Total # of Minutes Spent Total Time Spent with Patient: Total time spent is greater than 50% in coordination of care (as documented) at patient's floor/unit and/or counseling patient: Coding Level of Care Code 98927 INT INP/OBS CARE 3/75MIN Diagnoses ARF (acute renal failure) N17.9 History of nephrolithiasis Z87.442 UTI (urinary tract infection) N39.0 HTN (hypertension) I10
[2023-08-20] MEDS: PLASMA-LYTE A 1,000 ML IV ONE (14:49)
[2023-08-20] MEDS: PLASMA-LYTE A 1,000 ML IV SCH (15:48)
[2023-08-20] MEDS ORDERED: ONDANSETRON INJ 2 MG/ML 2 ML VIAL IV PRN (15:52)
[2023-08-20] MEDS ORDERED: MoRPHine SULFATE 2 MG/ML CARP IV PRN (15:52)
[2023-08-20] MEDS: AMPICILLIN/SULBACTAM SOD 3,000 MG in SODIUM CHLOR 0.9% MINI-B 100 ML IV STA (16:06)
[2023-08-20] MEDS: MoRPHine SULFATE 4 MG/ML 1 ML CARP\\VIAL IV PRN (16:07)
--- NOTE | 2023-08-20 16:48 | Electrocardiogram Report ---
Test Reason : Blood Pressure : / mmHG Vent. Rate : 088 BPM Atrial Rate : 088 BPM P-R Int : 172 ms QRS Dur : 082 ms QT Int : 442 ms P-R-T Axes : 047 025 086 degrees QTc Int : 534 ms Normal sinus rhythm Nonspecific ST abnormality Abnormal ECG When compared with ECG of 05-AUG-2023 17:43, No significant change was found Confirmed by Jack Watson ([id number]) on 08/20/2023 4:48:13 PM Referred By: REFERRED SELF Confirmed By:Eulogio Watson
[2023-08-20 19:04] LABS: BUN Creatinine Ratio 15.1 (10-20); Calcium 7.6 mg/dl (8.6-10.3); Creatinine Clr Calc Pharmacy 25.6 ml/min; Est GFR (African American) 26.2 ml/min; Est GFR (Non-African American) 22.6 ml/min; Potassium 3.4 mmol/L (3.5-5.1)
[2023-08-20] MEDS: ACETAMINOPHEN 325 MG TAB PO PRN (20:21)
[2023-08-20] MEDS: buPROPion SR 150 MG TABCR PO SCH (20:22)
[2023-08-20] MEDS: GABAPENTIN 300 MG CAP PO SCH (20:22)
[2023-08-20] MEDS: carvediloL 6.25 MG TAB PO SCH (20:22)
[2023-08-20] MEDS: traZODone HCL 100 MG TAB PO SCH (20:23)
[2023-08-20] MEDS: DULoxetine HCL 60 MG CAP PO SCH (20:23)
[2023-08-20] MEDS: risperiDONE 1 MG TABLET PO SCH (20:23)
[2023-08-20] MEDS: cloNIDine HCL 0.1 MG TAB PO SCH (20:24)
[2023-08-20] MEDS ORDERED: NALOXONE HCL 0.4 MG/1 ML VIAL/CARP IV PRN (20:46)
[2023-08-20] MEDS: HYDROmorphone INJ 0.5 MG/0.5 ML SYR IV ONE (21:02)
[2023-08-20] MEDS: COUGH DROP (SUGAR FREE) LOZ 24 LOZ/1 BOX BUCCAL PRN (21:02)
[2023-08-20] MEDS: OXYBUTYNIN CHLORIDE XL 5 MG TABCR PO SCH (21:03)
[2023-08-21] MEDS: AMPICILLIN/SULBACTAM SOD 3,000 MG in SODIUM CHLOR 0.9% MINI-B 100 ML IV SCH (04:13)
[2023-08-21 06:52] LABS: Eosinophils % (auto) 6.8 %; Hematocrit (blood only) 29.1 % (37.0-47.0); Hemoglobin 9.7 g/dl (12.0-16.0); Immature Granulocytes # (auto) 0.01 K/uL (0.01-0.20); Immature Granulocytes % (auto) 0.2 %; Lymphocytes # (auto) 0.14 K/uL (1.20-3.40); Lymphocytes % (auto) 3.2 %; Mean Corpuscular Hemoglobin 27.9 pg (25.0-34.0); Mean Corpuscular Hgb Conc 33.3 g/dL (32.0-36.0); Mean Corpuscular Volume 83.6 fL (80.0-100.0); Mean Platelet Volume 9.6 fL (9.4-12.4); Monocytes # (auto) 0.15 K/uL (0.11-0.59); Monocytes % (auto) 3.4 %; Neutrophils # (auto) 3.82 K/uL (1.40-6.50); Neutrophils % (auto) 86.4 %; Platelet Count 147 K/uL (130-400); RDW Coefficient of Variation 12.8 % (11.5-14.5); RDW Standard Deviation 38.6 fL (36.4-46.3); Red Blood Count 3.48 M/uL (4.20-5.40); White Blood Count 4.42 K/ul (4.8-10.8)
[2023-08-21 07:20] LABS: BUN Creatinine Ratio 15.5 (10-20); Calcium 7.9 mg/dl (8.6-10.3); Creatinine Clr Calc Pharmacy 28.3 ml/min; Est GFR (African American) 29.2 ml/min; Est GFR (Non-African American) 25.2 ml/min; Potassium 3.4 mmol/L (3.5-5.1)
[2023-08-21] MEDS: HEPARIN SOD 5,000 UNIT/0.5 ML VIAL SQ SCH (07:37)
[2023-08-21] MEDS: CHLORASEPTIC (PHENOL) 1.4% SOLN 180 ML BTL MT PRN (07:40)
[2023-08-21] MEDS: FERROUS SULFATE 325 MG TAB PO SCH (10:04)
--- NOTE | 2023-08-21 11:23 | Urology Progress Note ---
Date of Service August 21, 2023 Assessment & Plan (1) UTI (urinary tract infection): (2) ARF (acute renal failure): (3) Hydronephrosis, left: Plan 68yo F admitted with ARF and suspected UTI. CT abd pelvis on admission notable for left renal dilatation/hydronephrosis, possibly due to parapelvic cyst or UPJ type obstruction. No obstructing stones were identified. She remains afebrile and hemodynamically stable. Creatinine has improved from 2.72- 2.19- 2.0 today. Discussed with patient/family options for management. We discussed option to continue with conservative management and monitoring as she is stable and her renal function has improved. Also discussed left ureteral stent placement to maximize drainage. Ureteral stents were discussed as well as postoperative issues and pain management. Risks/benefits of each discussed. Patient/family would like to proceed with stent placement given her recent UTIs and left sided discomfort. Plan for OR today for cystoscopy, left retrograde pyelogram, left ureteral stent placement. Risks and benefits to be reviewed with patient by Dr. Stubbs. Urine and blood cultures are pending. She is on Unasyn. Follow cultures and tailor as culture data becomes available. She is voiding spontaneously. PVR was low today. Continue to monitor. Continue supportive care. Keep NPO. Urology will follow. Admission and Anticipated Discharge Date Admission Date: August 20, 2023 Subjective Pt examined at bedside this AM. Awake, resting in bed on arrival. No acute distress. Son at bedside. Pt reports pain to left back/flank, arms, legs, throat. Denies f/c/n/v. Voiding without issue. Denies hematuria or dysuria. Has been NPO. Review of Systems Constitutional: as per Subjective / HPI Genitourinary: as per Subjective / HPI Physical Exam Constitutional: no acute distress Respiratory: normal respiratory effort; no respiratory distress and no labored breathing Gastrointestinal (Abdomen): Percussion/Palpation: abdomen soft; abdomen nontender Neurologic: moves all extremities and awake Forgetful Psychiatric: A+Ox3, euthymic affect Genitourinary: Mild left flank discomfort with palpation Results & Data Vital Signs (Past 12 Hours) Vital Signs Temp Pulse Pulse Resp BP Pulse Ox O2 Del Method 08/21/23 07:48 36.6 C 86 14 114/74 91 Room Air 08/21/23 07:40 Room Air 08/21/23 07:00 84 08/21/23 04:30 37.1 C 83 18 102/63 91 Room Air 08/21/23 03:22 37.1 C 83 16 92/49 L 90 Room Air 08/21/23 00:18 93 H 08/20/23 22:39 36.8 C 93 H 18 121/71 90 Room Air PG Care Time/CCT Total # of Minutes Spent Total Time Spent with Patient: Total time spent is greater than 50% in coordination of care (as documented) at patient's floor/unit and/or counseling patient: Coding Level of Care Code 73740 SUB INP/OBS CARE 2MIN Diagnoses UTI (urinary tract infection) N39.0 Hematuria presence: without hematuria Urinary tract infection type: site unspecified ARF (acute renal failure) N17.9 Acute renal failure type: unspecified Hydronephrosis, left N13.30 (1) UTI (urinary tract infection) Hematuria presence: without hematuria Urinary tract infection type: site unspecified Qualified Code(s): N39.0 - Urinary tract infection, site not specified (2) ARF (acute renal failure) Acute renal failure type: unspecified Qualified Code(s): N17.9 - Acute kidney failure, unspecified
--- NOTE | 2023-08-21 14:36 | Hospitalist Progress Note ---
Date of Service August 21, 2023 Assessment & Plan (1) ARF (acute renal failure): Plan: -Etiology is uncertain, could be multifactorial, including prerenal due to dehydration, obstructive uropathy on account of left hydronephrosis seen on CT, UPJ obstruction versus parapelvic cyst, and also recent use of Bactrim -There has been some improvement in renal function, serum creatinine has been trending down -Plan is for cystoscopy left retrograde pyelogram and left ureteral stent, after discussion with family -Appreciate urology (2) UTI (urinary tract infection): Plan: - UA infected appearing. Was on bactrim, and recently on cefdinir just prior to admit --> recieved rocephin in the ER; given she was on cefdinir while worsening will switch to Unasyn - PCT 1.9 -Cultures pending (3) HTN (hypertension): Plan: - Clonidine continued due to risk of withdrawal. ARB held for ALISSA/hypotension. Carvedilol continued due to risk of beta-rafael withdrawal Blood pressure improving following additional liter bolus of fluids. Maintenance continued. (4) History of nephrolithiasis: Plan Stable issues: Anxiety: Home bupropion/clonidine/risperidone/duloxetine continued DVT prophylaxis: Heparin Disposition: Medical/telemetry given troponin elevation CODE STATUS: Full code Diet: Regular diet Admission and Anticipated Discharge Date Admission Date: August 20, 2023 Subjective Patient seen and examined, discussed with the son and also the daughter, urologist also discussed with them and they have agreed to go ahead with the stent placement. Review of Systems Review of Systems: All systems reviewed are negative, apart from the ones contained in the history. Physical Exam Physical Exam: The patient is awake, alert and oriented 3, well developed and well nourished, normocephalic and atraumatic, lying in bed and in no acute distress. HEENT--PERRL, EOMI, mucous membranes and oropharynx mildly dry Neck--supple. No JVD. No bruits. Thyroid normal, trachea midline, no adenopathy. Heart--normal S1 and S2. No murmurs, rubs or gallops. Lungs--clear bilaterally, no respiratory distress, no accessory muscle use. Abdomen--normal bowel sounds and soft. Extremities--no cyanosis or clubbing. No edema. Dermatologic--normal skin turgor, normal color, no abnormal lymph nodes, no rash. Neurologic--cranial nerves II through XII grossly intact. Rheumatologic--normal range of motion. Psychiatric--normal affect. Results & Data Results & Data Vital Signs (Past 12 Hours) Vital Signs Temp Pulse Pulse Resp BP Pulse Ox O2 Del Method 08/21/23 14:29 98.4 F 83 20 141/68 H 96 Nasal Cannula 08/21/23 11:51 98.6 F 82 16 125/78 96 Room Air 08/21/23 07:48 97.9 F 86 14 114/74 91 Room Air 08/21/23 07:40 Room Air 08/21/23 07:00 84 08/21/23 04:30 98.8 F 83 18 102/63 91 Room Air 08/21/23 03:22 98.8 F 83 16 92/49 L 90 Room Air O2 Flow Rate 08/21/23 14:29 2 08/21/23 11:51 08/21/23 07:48 08/21/23 07:40 08/21/23 07:00 08/21/23 04:30 08/21/23 03:22 PG Care Time/CCT Total # of Minutes Spent Total Time Spent with Patient: Total time spent is greater than 50% in coordination of care (as documented) at patient's floor/unit and/or counseling patient: Coding Level of Care Code 72793 SUB INP/OBS CARE 2/35MIN Diagnoses ARF (acute renal failure) N17.9 Acute renal failure type: unspecified UTI (urinary tract infection) N39.0 Hematuria presence: without hematuria Urinary tract infection type: site unspecified HTN (hypertension) I10 History of nephrolithiasis Z87.442 Time Spent (min) 35 (1) ARF (acute renal failure) Acute renal failure type: unspecified Qualified Code(s): N17.9 - Acute kidney failure, unspecified (2) UTI (urinary tract infection) Hematuria presence: without hematuria Urinary tract infection type: site unspecified Qualified Code(s): N39.0 - Urinary tract infection, site not specified
[2023-08-21] MEDS: LACTATED RINGER'S 1,000 ML IV SCH (14:40)
--- NOTE | 2023-08-21 15:08 | Anesthesiology Consultation ---
Date of Service August 21, 2023 Assessment & Plan Chart Review Chart Review: Acceptable Risk for Surgery and Patient NOT seen in Pre Admission Testing Consults Requested none ASA ASA3 Proposed Anesthesia Anesthesia Type: MAC Risk / Benefits Reviewed With: PT / POA / Parent / Guardian, Accepts Plan and Informed Consent Obtained History Surgery Operation Date: 08/21/23 08:20 Proposed Procedures p Cystoscopy, Retrograde Pyelogram, Left Stent Placement - Jack Stubbs MD Height/Weight Height: 5 ft 4 in Weight: 82.2 kg Allergies Allergy/AdvReac Type Severity Reaction Status Date / Time No Known Allergies Allergy Unverified 08/05/23 18:58 Medications Home Medications Medication Instructions Recorded Confirmed Last Taken bupropion HCl 150 mg tablet,12 hr 150 mg PO BID 08/05/23 08/20/23 Unknown sustained-release calcium carbonate 600 mg-vitamin 1 tab PO BID 08/05/23 08/20/23 Unknown D3 10 mcg (400 unit) tablet (Calcium 600 + D(3)) carvedilol 6.25 mg tablet 6.25 mg PO BID 08/05/23 08/20/23 Unknown clonazepam 0.5 mg tablet 0.5 mg PO BID PRN Anxiety 08/05/23 08/20/23 08/20/23 clonidine HCl 0.1 mg tablet 0.1 mg PO PM 08/05/23 08/20/23 Unknown duloxetine 60 mg capsule,delayed 60 mg PO BID 08/05/23 08/20/23 Unknown release ferrous sulfate 325 mg (65 mg 325 mg PO QAM 08/05/23 08/20/23 08/20/23 iron) tablet (iron) gabapentin 300 mg capsule 300 mg PO BID 08/05/23 08/20/23 08/20/23 losartan 100 mg tablet 100 mg PO QAM 08/05/23 08/20/23 Unknown meloxicam 7.5 mg tablet 7.5 mg PO BID 08/05/23 08/20/23 Unknown risperidone 1 mg tablet 1 mg PO HS 08/05/23 08/20/23 Unknown tolterodine 2 mg tablet 2 mg PO BID 08/05/23 08/20/23 Unknown trazodone 100 mg tablet 150 mg PO HS 08/05/23 08/20/23 Unknown cefdinir 300 mg capsule 300 mg PO BID 08/20/23 08/20/2308/19/24 docusate sodium 100 mg capsule 100 mg PO BID 08/20/23 08/20/23 Unknown lactobacillus bifidus See Rx Instructions .Route .COMPLEX 08/20/23 08/20/23 Unknown Active Medications Generic Name Dose Route Start Last Admin Trade Name Freq PRN Reason Stop Dose Admin Acetaminophen 650 mg 08/20/23 15:52 08/20/23 20:21 Acetaminophen 325 Mg Tab PO 09/19/23 15:51 650 mg Q4H PRN Administration Pain or Fever Bupropion HCl 150 mg 08/20/23 21:00 08/21/23 10:04 Bupropion Sr 150 Mg Tabcr PO 09/19/23 20:59 150 mg BID RENE Administration Carvedilol 6.25 mg 08/20/23 21:00 08/21/23 10:04 Carvedilol 6.25 Mg Tab PO 09/19/23 20:59 6.25 mg BID RENE Administration Clonidine HCl 0.1 mg 08/20/23 21:00 08/20/23 20:24 Clonidine Hcl 0.1 Mg Tab PO 09/19/23 20:59 0.1 mg PM RENE Administration Duloxetine HCl 60 mg 08/20/23 21:00 08/21/23 10:04 Duloxetine Hcl 60 Mg Cap PO 09/19/23 20:59 60 mg BID RENE Administration Ferrous Sulfate 325 mg 08/21/23 09:00 08/21/23 10:04 Ferrous Sulfate 325 Mg Tab PO 09/20/23 08:59 325 mg QAM RENE Administration Gabapentin 300 mg 08/20/23 21:00 08/21/23 10:04 Gabapentin 300 Mg Cap PO 09/19/23 20:59 300 mg BID RENE Administration Heparin Sodium (Porcine) 5,000 units 08/21/23 09:00 08/21/23 07:37 Heparin Sod 5,000 Unit/0.5 Ml Vial SQ 09/20/23 08:59 Not Given Q12 RENE Parenteral Electrolytes 1,000 mls @ 120 mls/hr 08/20/23 14:45 08/21/23 14:22 Plasma-Lyte A Ph 7.4 IV 09/19/23 14:44 0 mls/hr .Q8H20M RENE Infusion Ampicillin Sodium/Sulbactam 100 mls @ 100 mls/hr 08/21/23 04:00 08/21/23 05:15 Sodium 3,000 mg/ Sodium IV 08/31/23 03:59 Infused Chloride Q12H RENE Infusion Lactated Ringer's 1,000 mls @ 15 mls/hr 08/21/23 14:45 08/21/23 14:40 Lr IV 09/20/23 14:44 15 mls/hr .Q24H RENE Administration Menthol 1 ho 08/20/23 20:48 08/21/23 04:20 Cough Drop (Sugar Free) Ho 24 Ho/1 Box BUCCAL 09/19/23 20:47 1 ho Q2H PRN Administration Sore Throat Morphine Sulfate 4 mg 08/20/23 15:52 08/20/23 19:07 Morphine Sulfate 4 Mg/Ml 1 Ml Carp\\Vial IV 09/03/23 15:51 4 mg Q4H PRN Administration Severe Pain (7,8,9,10) on NRS Oxybutynin Chloride 10 mg 08/20/23 21:00 08/21/23 10:03 Oxybutynin Chloride Xl 5 Mg Tabcr PO 09/19/23 20:59 10 mg DAILY RENE Administration Phenol 1 sprays 08/20/23 20:48 08/21/23 07:40 Chloraseptic (Phenol) 1.4% Soln 180 Ml Btl MT 09/19/23 20:47 1 sprays Q2H PRN Administration Sore Throat Risperidone 1 mg 08/20/23 21:00 08/20/23 20:23 Risperidone 1 Mg Tablet PO 09/19/23 20:59 1 mg HS RENE Administration Trazodone HCl 200 mg 08/20/23 21:00 08/20/23 20:23 Trazodone Hcl 100 Mg Tab PO 09/19/23 20:59 200 mg HS RENE Administration NPO Date Last Intake of Fluids: 08/20/23 Time Last Intake of Fluids: 22:00 Last Intake of Fluids Comment: sip of water 1004 w/meds Date Last Intake of Solids: 08/20/23 Time Last Intake of Solids: 08:00 Last Intake of Solids Comment: "cookie" Past Medical History Medical History HTN (hypertension) History of nephrolithiasis Exercise / Class Metabolic Activity II 4-5 Yardwork/Stairs/Walk up hill Past Anesthesia History No Hx of Anesthesia Complications and No Family Hx of Anesthesia Complications History of PONV No Hx of PONV and No Hx of Motion Sickness Social History Smoking Status: Former smoker Hx Alcohol Use: No Hx Substance Use: No Physical Exam Vital Signs Last Vital Signs Temp 36.9 C 08/21/23 14:29 Pulse 83 08/21/23 14:29 Resp 20 08/21/23 14:29 BP 141/68 H 08/21/23 14:29 Pulse Ox 96 08/21/23 14:29 O2 Del Method Nasal Cannula 08/21/23 14:29 O2 Flow Rate 2 08/21/23 14:29 ENMT Mouth: no dentition abnormality Thyromental Distance: > or= 3.5 Finger Breadths Mallampati Class: II Neck normal visual inspection Respiratory normal respiratory effort Auscultation: lungs clear to auscultation bilaterally Cardiovascular Rate/Rhythm: regular rate and regular rhythm Psychiatric Orientation: alert Testing Laboratory Results 08/21/23 06:24 08/21/23 06:24 PT 12.9 Seconds (9.0-12.0) H 08/20/23 11:22 INR 1.2 (0.9-1.1) H 08/20/23 11:22 APTT 32 Seconds (21-31) H 08/20/23 11:22 Urine Color Dark Yellow 08/20/23 12:20 Urine Appearance Turbid (Clear) A 08/20/23 12:20 Urine pH 5.0 (4.5-7.5) 08/20/23 12:20 Ur Specific [place] 1.023 (1.000-1.030) 08/20/23 12:20 Urine Protein Trace (Negative) H 08/20/23 12:20 Urine Glucose (UA) Negative (Negative) 08/20/23 12:20 Urine Ketones Trace (Negative) H 08/20/23 12:20 Urine Nitrite Positive (Negative) A 08/20/23 12:20 Ur Leukocyte Esterase 2+ (Negative) H 08/20/23 12:20 Urine WBC (Auto) 21-50 /hpf (0-5) H 08/20/23 12:20 Urine RBC (Auto) 0-2 /hpf (0-2) 08/20/23 12:20 U Hyaline Cast (Auto) >20 /lpf (0-2) H 08/20/23 12:20 U Epithel Cells (Auto) 6-10 /hpf (0-2) H 08/20/23 12:20 Urine Bacteria (Auto) 1+ (None Seen) H 08/20/23 12:20 08/20/23 12:20 Urine Culture - Preliminary Urine,Clean Catch No growth - Less than 1,000 colonies/mL, Final report to follow.
[2023-08-21] MEDS ORDERED: fentaNYL citrate PF 100 MCG/2 ML VIAL ONE (15:28)
[2023-08-21] MEDS ORDERED: MIDAZOLAM HCL 1 MG/ML 2ML VIAL ONE (15:28)
[2023-08-21] MEDS ORDERED: ONDANSETRON INJ 2 MG/ML 2 ML VIAL ONE (15:59)
[2023-08-21] MEDS ORDERED: PROPOFOL IV EMULSION 10 MG/ML 20 ML VIAL IV ONE (15:59)
[2023-08-21] MEDS ORDERED: LIDOCAINE 2% 2 ML VIAL/AMP(20MG/ML) INFIL ONE (15:59)
--- NOTE | 2023-08-21 16:00 | Operative Report ---
PG Post Operative Report Pre & Post Diagnosis Operation Date: 08/21/23 08:20 Pre-Op Diagnosis: Left UPJ OBSTRUCTION Post-Op Diagnosis: Left UPJ OBSTRUCTION I identified the patient and participated in the time-out.: Yes Procedure Operation Date: 08/21/23 08:20 Actual Procedures p Cystoscopy, Retrograde Pyelogram, Left Stent Placement(Left) - Jack Stubbs MD Surgeon Jack Stubbs MD Bar Host/Hostess None Estimated Blood Loss 0 Findings Consistent with Post-Op Diagnosis Specimens None Description of Procedure The patient was identified in the preoperative holding area, appropriate informed consents were reviewed and completed and the patient was transferred to the operative suite. Upon arrival, appropriate antibiotics and anesthesia were administered and the patient was placed in dorsal lithotomy position and prepped and draped in sterile fashion. To begin the case I passed a 21 [place] cystoscope with 30 degree lens. Inspection revealed a healthy-appearing urethra and bladder. She has no mucosal abnormalities. Ureteral orifices are in orthotopic position. There is clear urine. I then turned my attention to the left UO and cannulated it with a 5 [place] open-ended catheter to prepare for a retrograde pyelogram. Utilizing live fluoroscopy I performed a retrograde pyelogram which showed appropriate filling of the ureter which had no dilation. Her renal pelvis, however, appears to be somewhat bifid, likely split around a peripelvic cyst, but also showing some dilation consistent with moderate hydronephrosis. The calyceal angles themselves were relatively sharp despite the dilation of the pelvis. Following the retrograde pyelogram I turned my attention to placement of a stent. I positioned a wire into the upper pole of the kidney and then placed a 6 [place] by 24 cm double-J stent seeing a good curl in the kidney as well as the bladder. I emptied her bladder and reversed her from anesthesia. She was taken to the recovery room in stable condition. There were no complications I attest to the content of the Intraoperative Record and any orders documented therein. Any exceptions are noted below.
--- NOTE | 2023-08-21 16:07 | Anesthesiology Progress Note ---
Date of Service August 21, 2023 Anesthesia Post Procedure Vital Signs Vital Signs: Temp Pulse Pulse Pulse Resp BP BP 08/21/23 15:15 85 08/21/23 14:29 36.9 C 83 20 141/68 H 08/21/23 11:51 37 C 82 16 125/78 08/21/23 07:48 36.6 C 86 14 114/74 08/21/23 07:40 08/21/23 07:00 84 08/21/23 04:30 37.1 C 83 18 102/63 08/21/23 03:22 37.1 C 83 16 92/49 L 08/21/23 00:18 93 H 08/20/23 22:39 36.8 C 93 H 18 121/71 08/20/23 20:05 36.4 C L 83 20 120/75 08/20/23 19:35 80 08/20/23 19:18 08/20/23 18:45 36.6 C 83 18 130/74 08/20/23 16:48 08/20/23 16:30 80 20 107/60 Pulse Ox O2 Del Method O2 Flow Rate 08/21/23 15:15 08/21/23 14:29 96 Nasal Cannula 2 08/21/23 11:51 96 Room Air 08/21/23 07:48 91 Room Air 08/21/23 07:40 Room Air 08/21/23 07:00 08/21/23 04:30 91 Room Air 08/21/23 03:22 90 Room Air 08/21/23 00:18 08/20/23 22:39 90 Room Air 08/20/23 20:05 94 Room Air 08/20/23 19:35 08/20/23 19:18 Room Air 08/20/23 18:45 95 Room Air 08/20/23 16:48 87 L Room Air, Nasal Cannula 0 08/20/23 16:30 98 Nasal Cannula 3 Pain Intensity Generalized: Pain Intensity: 10 Transfer of Care Handoff Completed per policy Notes Mental Status: alert / awake / arousable Patient Amnestic to Procedure: Yes Nausea / Vomiting: adequately controlled Pain: adequately controlled Airway Patency, RR, SpO2: stable & adequate BP & HR: stable & adequate Hydration State: stable & adequate Anesthetic Complications: no major complications apparent
--- NOTE | 2023-08-21 16:08 | Fluoroscopy Report ---
FL retrograde includes kub CLINICAL HISTORY: Left ureteral stent. COMPARISON STUDY: None. FLUOROSCOPY TIME: 10 seconds. FLUOROSCOPY IMAGES: 3 Ka,r: 3.0 mGy FINDINGS: Retrograde opacification of the left renal collecting system followed by placement of a lef t ureteral stent. The ureteral stent appears in good position. Mild pelvic floor collapse is noted. IMPRESSION: Fluoroscopic assistance as above. ACT 112: Negative or not required by law. Electronically signed by: Amilcar Calvo M.D. 08/21/2023 4:07 PM
[2023-08-21 17:37] LABS: Allen Test Pos (Pos); Base Excess ABG -1.7 mEq/L (-9-1.8); HCO3 ABG 24 mmol/L (19-24); Oxygen Saturation ABG 96.3 % (90-95); PCO2 ABG 45 mmHg (35-46); PO2 ABG 77 mmHg (80-95); pH ABG 7.34 (7.35-7.45)
--- NOTE | 2023-08-21 19:29 | XRay Report ---
SINGLE VIEW CHEST CLINICAL HISTORY: Dyspnea FINDINGS: An AP, portable, upright chest radiograph is compared to study dated 08/20/2023. The heart i s enlarged noting atherosclerotic calcification of the thoracic aorta. There is pulmonary vascular co ngestion. There is chronic elevation right hemidiaphragm. Trace pleural effusions are suspected. No p neumothorax is seen. The skeletal structures are osteopenic. The bony thorax is grossly intact. IMPRESSION: 1. Cardiomegaly with evidence of congestive failure. 2. Trace pleural effusions are suspected. ACT 112: Negative or not required by law. Electronically signed by: Jese De Los Santos M.D. 08/21/2023 7:27 PM
[2023-08-22 07:37] LABS: BUN Creatinine Ratio 18.1 (10-20); Basophils # (auto) 0.03 K/uL (0.00-0.20); Basophils % (auto) 0.7 %; Calcium 8.8 mg/dl (8.6-10.3); Creatinine Clr Calc Pharmacy 48.7 ml/min; Eosinophils # (auto) 0.19 K/uL (0.00-0.50); Eosinophils % (auto) 4.3 %; Est GFR (African American) 56.4 ml/min; Est GFR (Non-African American) 48.7 ml/min; Hematocrit (blood only) 29.9 % (37.0-47.0); Hemoglobin 9.6 g/dl (12.0-16.0); Immature Granulocytes # (auto) 0.02 K/uL (0.01-0.20); Immature Granulocytes % (auto) 0.5 %; Lymphocytes # (auto) 0.25 K/uL (1.20-3.40); Lymphocytes % (auto) 5.7 %; Mean Corpuscular Hemoglobin 27.7 pg (25.0-34.0); Mean Corpuscular Hgb Conc 32.1 g/dL (32.0-36.0); Mean Corpuscular Volume 86.2 fL (80.0-100.0); Mean Platelet Volume 9.6 fL (9.4-12.4); Monocytes # (auto) 0.43 K/uL (0.11-0.59); Monocytes % (auto) 9.7 %; Neutrophils % (auto) 79.1 %; Platelet Count 198 K/uL (130-400); Potassium 3.4 mmol/L (3.5-5.1); RDW Coefficient of Variation 12.9 % (11.5-14.5); Red Blood Count 3.47 M/uL (4.20-5.40); White Blood Count 4.42 K/ul (4.8-10.8)
[2023-08-22] MEDS: FUROSEMIDE 40 MG/4 ML VIAL IV ONE (08:03)
--- NOTE | 2023-08-22 08:03 | Urology Progress Note ---
Date of Service August 22, 2023 Assessment & Plan (1) UTI (urinary tract infection): (2) ARF (acute renal failure): (3) Hydronephrosis, left: Plan 68yo F admitted with ARF and suspected UTI. CT abd pelvis on admission notable for left renal dilatation/hydronephrosis, possibly due to parapelvic cyst or UPJ type obstruction. No obstructing stones were identified. - POD #1 s/p Cystoscopy, Retrograde Pyelogram, Left Stent Placement - Afebrile, hypertensive, on O2 via NC. - Labs today show creatinine has returned to baseline - 1.16 today. - Urine and blood cultures are prelim no growth. She is on Unasyn. - She is voiding spontaneously. Continue to monitor and bladder scan as needed. - No further intervention indicated. - Continue supportive care and medical management per primary team. - Continue antibiotics. Follow cultures and tailor as culture data becomes a vailable. - Will arrange outpatient follow-up with our service for stent management. - Urology will follow peripherally. Please call with any further questions, concerns, or changes in patient status. Admission and Anticipated Discharge Date Admission Date: August 20, 2023 Subjective Pt examined at bedside this AM. No acute distress. Son at bedside. Tolerating the ureteral stent with minimal bother. Denies fever or chills. Voiding without issue. Denies hematuria or dysuria. Review of Systems Constitutional: as per Subjective / HPI Genitourinary: as per Subjective / HPI Physical Exam Constitutional: no acute distress Respiratory: no respiratory distress and no labored breathing O2 via NC Neurologic: moves all extremities and awake Forgetful Psychiatric: Orientation: alert and oriented x 3 Results & Data Vital Signs (Past 12 Hours) Vital Signs Temp Pulse Pulse Resp BP Pulse Ox O2 Del Method 08/22/23 07:57 172/93 H 08/22/23 07:39 36.7 C 96 H 18 195/83 H 91 Nasal Cannula 08/22/23 07:00 103 H 08/22/23 03:22 36.8 C 82 20 135/62 94 Nasal Cannula 08/21/23 23:53 36.6 C 86 20 143/77 H 93 Nasal Cannula 08/21/23 21:00 Nasal Cannula O2 Flow Rate 08/22/23 07:57 08/22/23 07:39 3 08/22/23 07:00 08/22/23 03:22 2 08/21/23 23:53 2 08/21/23 21:00 3 PG Care Time/CCT Total # of Minutes Spent Total Time Spent with Patient: Total time spent is greater than 50% in coordination of care (as documented) at patient's floor/unit and/or counseling patient: Coding Level of Care Code 78983 SUB INP/OBS CARE 2/35MIN Diagnoses UTI (urinary tract infection) N39.0 Hematuria presence: without hematuria Urinary tract infection type: site unspecified ARF (acute renal failure) N17.9 Acute renal failure type: unspecified Hydronephrosis, left N13.30 (1) UTI (urinary tract infection) Hematuria presence: without hematuria Urinary tract infection type: site unspecified Qualified Code(s): N39.0 - Urinary tract infection, site not specified (2) ARF (acute renal failure) Acute renal failure type: unspecified Qualified Code(s): N17.9 - Acute kidney failure, unspecified
--- NOTE | 2023-08-22 12:06 | Hospitalist Progress Note ---
Date of Service August 22, 2023 Assessment & Plan (1) ARF (acute renal failure): Plan: -Etiology is uncertain, could be multifactorial, including prerenal due to dehydration, obstructive uropathy on account of left hydronephrosis seen on CT, UPJ obstruction versus parapelvic cyst, and also recent use of Bactrim -Renal function is now back to baseline following placement of ureteral stent by urology (2) Pulmonary congestion: Plan: Most likely the reason for her hypoxia and shortness of breath, as seen on chest x-ray Will rule out congestive heart failure Obtain BNP also 2D echo Continue IV Lasix (3) UTI (urinary tract infection): Plan: - Cultures negative so far, continue Unasyn (4) HTN (hypertension): Plan: - Blood pressure has been poorly controlled -Started p.o. clonidine 0.1 mg twice daily -Resume losartan which was previously held because of renal function (5) History of nephrolithiasis: Plan Continue hospitalization, pending clinical improvement. Anxiety: Home bupropion/clonidine/risperidone/duloxetine continued DVT prophylaxis: Heparin Disposition: Medical/telemetry given troponin elevation CODE STATUS: Full code Diet: Regular diet Admission and Anticipated Discharge Date Admission Date: August 20, 2023 Subjective Patient seen and examined today, states shortness of breath is better following Lasix Review of Systems Review of Systems: All systems reviewed are negative, apart from the ones contained in the history. Physical Exam Physical Exam: The patient is awake, alert and oriented 3, well developed and well nourished, normocephalic and atraumatic, lying in bed and in no acute distress. HEENT--PERRL, EOMI, mucous membranes and oropharynx mildly dry Neck--supple. No JVD. No bruits. Thyroid normal, trachea midline, no adenopathy. Heart--normal S1 and S2. No murmurs, rubs or gallops. Lungs--reduced and on auscultation, Abdomen--normal bowel sounds and soft. Extremities--no cyanosis or clubbing. No edema. Dermatologic--normal skin turgor, normal color, no abnormal lymph nodes, no rash. Neurologic--cranial nerves II through XII grossly intact. Rheumatologic--normal range of motion. Psychiatric--normal affect. Results & Data Results & Data Vital Signs (Past 12 Hours) Vital Signs Temp Pulse Pulse Resp BP BP Pulse Ox 08/22/23 11:38 97.7 F 90 18 183/102 H 187/103 H 93 08/22/23 07:57 172/93 H 08/22/23 07:50 08/22/23 07:39 98.1 F 96 H 18 195/83 H 91 08/22/23 07:00 103 H 08/22/23 03:22 98.2 F 82 20 135/62 94 O2 Del Method O2 Flow Rate 08/22/23 11:38 Nasal Cannula 3 08/22/23 07:57 08/22/23 07:50 Room Air 08/22/23 07:39 Nasal Cannula 3 08/22/23 07:00 08/22/23 03:22 Nasal Cannula 2 PG Care Time/CCT Total # of Minutes Spent Total Time Spent with Patient: Total time spent is greater than 50% in coordination of care (as documented) at patient's floor/unit and/or counseling patient: Coding Level of Care Code 25296 SUB INP/OBS CARE 2/35MIN Diagnoses ARF (acute renal failure) N17.9 Acute renal failure type: unspecified Pulmonary congestion R09.89 UTI (urinary tract infection) N39.0 Hematuria presence: without hematuria Urinary tract infection type: site unspecified HTN (hypertension) I10 History of nephrolithiasis Z87.442 Time Spent (min) 35 (1) ARF (acute renal failure) Acute renal failure type: unspecified Qualified Code(s): N17.9 - Acute kidney failure, unspecified (3) UTI (urinary tract infection) Hematuria presence: without hematuria Urinary tract infection type: site unspecified Qualified Code(s): N39.0 - Urinary tract infection, site not specified
[2023-08-22] MEDS: LOSARTAN POTASSIUM 50 MG TAB PO SCH (12:52)
[2023-08-22] MEDS: AMPICILLIN/SULBACTAM SOD 3,000 MG in SODIUM CHLOR 0.9% MINI-B 100 ML IV SCH (14:19)
--- NOTE | 2023-08-22 16:21 | XCELERA ---
[id number]
[2023-08-22] MEDS: FUROSEMIDE 40 MG/4 ML VIAL IV SCH (16:27)
[2023-08-23 07:28] LABS: Basophils # (auto) 0.01 K/uL (0.00-0.20); Basophils % (auto) 0.2 %; Eosinophils # (auto) 0.11 K/uL (0.00-0.50); Eosinophils % (auto) 2.4 %; Hematocrit (blood only) 31.4 % (37.0-47.0); Hemoglobin 10.4 g/dl (12.0-16.0); Immature Granulocytes # (auto) 0.03 K/uL (0.01-0.20); Immature Granulocytes % (auto) 0.7 %; Lymphocytes # (auto) 0.58 K/uL (1.20-3.40); Lymphocytes % (auto) 12.7 %; Mean Corpuscular Hemoglobin 27.4 pg (25.0-34.0); Mean Corpuscular Hgb Conc 33.1 g/dL (32.0-36.0); Mean Corpuscular Volume 82.6 fL (80.0-100.0); Mean Platelet Volume 9.3 fL (9.4-12.4); Monocytes # (auto) 0.65 K/uL (0.11-0.59); Monocytes % (auto) 14.3 %; Neutrophils # (auto) 3.18 K/uL (1.40-6.50); Neutrophils % (auto) 69.7 %; Platelet Count 244 K/uL (130-400); RDW Coefficient of Variation 12.7 % (11.5-14.5); RDW Standard Deviation 38.6 fL (36.4-46.3); White Blood Count 4.56 K/ul (4.8-10.8)
[2023-08-23] MEDS: clonazePAM 0.5 MG TAB PO PRN (07:43)
[2023-08-23 07:48] LABS: BUN Creatinine Ratio 14.3 (10-20); Calcium 9.7 mg/dl (8.6-10.3); Creatinine Clr Calc Pharmacy 60.6 ml/min; Est GFR (African American) 75.7 ml/min; Est GFR (Non-African American) 65.3 ml/min; Potassium 2.8 mmol/L (3.5-5.1)
--- NOTE | 2023-08-23 11:45 | Hospitalist Progress Note ---
Date of Service August 23, 2023 Assessment & Plan (1) Acute heart failure with preserved ejection fraction (HFpEF): Plan: BNP was above 500, chest x-ray showed evidence of pulmonary congestion Patient has been getting better with diuresis 2D echo showed preserved ejection fraction Continue diuresis, monitor input and output, daily weights. (2) ARF (acute renal failure): Plan: -Etiology is uncertain, could be multifactorial, including prerenal due to dehydration, obstructive uropathy on account of left hydronephrosis seen on CT, UPJ obstruction versus parapelvic cyst, and also recent use of Bactrim -Renal function is now back to baseline following placement of ureteral stent by urology -Outpatient follow-up with urology following stent placement (3) Pulmonary congestion: Plan: Most likely the reason for her hypoxia and shortness of breath, as seen on chest x-ray Continue treatment above (4) UTI (urinary tract infection): Plan: - Cultures negative so far, continue Unasyn -Will de-escalate upon discharge (5) HTN (hypertension): Plan: - Blood pressure has been poorly controlled -Started p.o. clonidine 0.1 mg twice daily -Resume losartan which was previously held because of renal function (6) History of nephrolithiasis: Plan Continue hospitalization, pending clinical improvement. Anxiety: Home bupropion/clonidine/risperidone/duloxetine continued DVT prophylaxis: Heparin Disposition: Medical/telemetry given troponin elevation CODE STATUS: Full code Diet: Regular diet Admission and Anticipated Discharge Date Admission Date: August 20, 2023 Review of Systems Review of Systems: All systems reviewed are negative, apart from the ones contained in the history. Physical Exam Physical Exam: The patient is awake, alert and oriented 3, well developed and well nourished, normocephalic and atraumatic, lying in bed and in no acute distress. HEENT--PERRL, EOMI, mucous membranes and oropharynx mildly dry Neck--supple. No JVD. No bruits. Thyroid normal, trachea midline, no adenopathy. Heart--normal S1 and S2. No murmurs, rubs or gallops. Lungs--reduced and on auscultation, Abdomen--normal bowel sounds and soft. Extremities--no cyanosis or clubbing. No edema. Dermatologic--normal skin turgor, normal color, no abnormal lymph nodes, no rash. Neurologic--cranial nerves II through XII grossly intact. Rheumatologic--normal range of motion. Psychiatric--normal affect. Results & Data Results & Data Vital Signs (Past 12 Hours) Vital Signs Temp Pulse Pulse Resp BP Pulse Ox O2 Del Method 08/23/23 11:20 Nasal Cannula 08/23/23 10:12 90 08/23/23 07:39 98.2 F 72 18 171/90 H 96 Room Air 08/23/23 03:04 98.2 F 80 16 168/84 H 94 Nasal Cannula 08/23/23 01:44 82 O2 Flow Rate 08/23/23 11:20 3 08/23/23 10:12 08/23/23 07:39 08/23/23 03:04 3 08/23/23 01:44 PG Care Time/CCT Total # of Minutes Spent Total Time Spent with Patient: Total time spent is greater than 50% in coordination of care (as documented) at patient's floor/unit and/or counseling patient: Coding Level of Care Code 99767 SUB INP/OBS CARE 2/35MIN Diagnoses Acute heart failure with preserved ejection fraction (HFpEF) I50.31 ARF (acute renal failure) N17.9 Acute renal failure type: unspecified Pulmonary congestion R09.89 UTI (urinary tract infection) N39.0 Hematuria presence: without hematuria Urinary tract infection type: site unspecified HTN (hypertension) I10 History of nephrolithiasis Z87.442 Time Spent (min) 35 (2) ARF (acute renal failure) Acute renal failure type: unspecified Qualified Code(s): N17.9 - Acute kidney failure, unspecified (4) UTI (urinary tract infection) Hematuria presence: without hematuria Urinary tract infection type: site unspecified Qualified Code(s): N39.0 - Urinary tract infection, site not specified
--- NOTE | 2023-08-23 14:30 | Fluoroscopy Report ---
FL barium swallow CLINICAL HISTORY: suspect for aspiration of reflux COMPARISON STUDY: None. FLUOROSCOPY TIME: 32 seconds FLUOROSCOPY IMAGES: 12 Ka,r: 17 mGy FINDINGS: No esophageal mass or stricture was identified although mucosal detail is mildly compromise d. There is moderate esophageal dysmotility. A small hiatal hernia was identified. No reflux was elic ited. IMPRESSION: 1. No esophageal mass or stricture. 2. Moderate esophageal dysmotility. ACT 112: Negative or not required by law. Electronically signed by: Andres Barreto M.D. 08/23/2023 2:28 PM
[2023-08-24 09:20] LABS: BUN Creatinine Ratio 14.1 (10-20); Calcium 9.6 mg/dl (8.6-10.3); Creatinine Clr Calc Pharmacy 64.5 ml/min; Est GFR (African American) 82.2 ml/min; Est GFR (Non-African American) 70.9 ml/min; Potassium 2.7 mmol/L (3.5-5.1)
[2023-08-24] MEDS: POTASSIUM CHLORIDE CRTAB 20 MEQ TABCR PO STA (10:01)
--- NOTE | 2023-08-24 12:05 | Hospitalist Progress Note ---
Date of Service August 24, 2023 Assessment & Plan (1) Acute heart failure with preserved ejection fraction (HFpEF): Plan: BNP was above 500, chest x-ray showed evidence of pulmonary congestion Patient has been getting better with diuresis 2D echo showed preserved ejection fraction Continue diuresis, monitor input and output, daily weights. Patient is making good urine (2) ARF (acute renal failure): Plan: -Etiology is uncertain, could be multifactorial, including prerenal due to dehydration, obstructive uropathy on account of left hydronephrosis seen on CT, UPJ obstruction versus parapelvic cyst, and also recent use of Bactrim -Renal function is now back to baseline following placement of ureteral stent by urology -Outpatient follow-up with urology following stent placement (3) Pulmonary congestion: Plan: Most likely the reason for her hypoxia and shortness of breath, as seen on chest x-ray Continue treatment above Probably will need oxygen at home, currently on 2L of oxygen through nasal cannula Attempt to wean down to room air resulted in desaturation. Will get the two-step (4) UTI (urinary tract infection): Plan: - Cultures remain negative She completed a course of IV antibiotics. (5) HTN (hypertension): Plan: - Blood pressure is not slightly under better control. -Started p.o. clonidine 0.1 mg twice daily -Resume losartan which was previously held because of renal function (6) History of nephrolithiasis: Plan Continue hospitalization, pending clinical improvement. Anxiety: Home bupropion/clonidine/risperidone/duloxetine continued DVT prophylaxis: Heparin Disposition: Medical/telemetry given troponin elevation CODE STATUS: Full code Diet: Regular diet Admission and Anticipated Discharge Date Admission Date: August 20, 2023 Subjective Patient seen and examined today, shortness of breath is much improved, attempt at weaning off of oxygen resulted in desaturation to 80s Review of Systems Review of Systems: All systems reviewed are negative, apart from the ones contained in the history. Physical Exam Physical Exam: The patient is awake, alert and oriented 3, well developed and well nourished, normocephalic and atraumatic, lying in bed and in no acute distress. HEENT--PERRL, EOMI, mucous membranes and oropharynx mildly dry Neck--supple. No JVD. No bruits. Thyroid normal, trachea midline, no adenopathy. Heart--normal S1 and S2. No murmurs, rubs or gallops. Lungs--reduced and on auscultation, Abdomen--normal bowel sounds and soft. Extremities--no cyanosis or clubbing. No edema. Dermatologic--normal skin turgor, normal color, no abnormal lymph nodes, no rash. Neurologic--cranial nerves II through XII grossly intact. Rheumatologic--normal range of motion. Psychiatric--normal affect. Results & Data Results & Data Vital Signs (Past 12 Hours) Vital Signs Temp Pulse Pulse Pulse Resp BP BP 08/24/23 11:22 98.2 F 70 16 166/86 H 08/24/23 11:21 08/24/23 11:20 80 08/24/23 07:39 98.2 F 79 16 178/95 H 08/24/23 04:00 97.9 F 73 18 165/87 H Pulse Ox O2 Del Method O2 Flow Rate 08/24/23 11:22 94 Nasal Cannula 2 08/24/23 11:21 Nasal Cannula 2 08/24/23 11:20 08/24/23 07:39 93 Nasal Cannula 3 08/24/23 04:00 93 Nasal Cannula 2 PG Care Time/CCT Total # of Minutes Spent Total Time Spent with Patient: Total time spent is greater than 50% in coordination of care (as documented) at patient's floor/unit and/or counseling patient: Coding Level of Care Code 34170 SUB INP/OBS CARE 2/35MIN Diagnoses Acute heart failure with preserved ejection fraction (HFpEF) I50.31 ARF (acute renal failure) N17.9 Acute renal failure type: unspecified Pulmonary congestion R09.89 UTI (urinary tract infection) N39.0 Hematuria presence: without hematuria Urinary tract infection type: site unspecified HTN (hypertension) I10 History of nephrolithiasis Z87.442 Time Spent (min) 35 (2) ARF (acute renal failure) Acute renal failure type: unspecified Qualified Code(s): N17.9 - Acute kidney failure, unspecified (4) UTI (urinary tract infection) Hematuria presence: without hematuria Urinary tract infection type: site unspecified Qualified Code(s): N39.0 - Urinary tract infection, site not specified
--- NOTE | 2023-08-24 13:34 | Discharge Summary ---
Date of Service August 24, 2023 Admission HPI Per Admitting Provider Roma is a 68-year-old female with past medical history of hypertension who resides with her son who was on cefdinir as an outpatient for UTI, but has developed worsening achiness, headache, sore throat, loss of taste, and weakness. In the ER she does not have a leukocytosis, is hyponatremic at 130 last 134, has an ALISSA with creatinine 2.72 with only known prior level 1.36, troponin downtrending from 60.7-46.5 following fluids, normal lactate, and a procalcitonin of 1.9 and infected versus contaminated appearing UA and negative quad screen was recommended for admission for UTI. Head CT is with no acute finding CTA/P possible UPJ obstruction or parapelvic cyst requiring nonemergent CT urogram for further evaluation, small right middle lobe and left lower lobe patchy opacities suggestive of pneumonitis, and a left lower lobe nodule +difficulty voiding, new. +oliguria. No dysuria or frequency. +weakness, fatigue. No cough. No chest pain or respiratory symptoms. Does endorse some sore throat. No n/v. no sputum production Reports he has a past history of high blood pressure and kidney stones, some memory issues and anxiety. She takes risperidone/bupropion/Duloxetine for anxiety takes carvedilol, clonidine, losartan for blood pressure although notes clonidine use the only thing that seems to work consistently Medical History: Reviewed Medications: Reviewed Surgical History: Reviewed Family history: Reviewed Allergies: Reviewed Social History:no tobacco/etoh Code Status:full Principal Diagnosis Acute congestive heart failure Discharge Exam The patient is awake, alert and oriented 3, well developed and well nourished, normocephalic and atraumatic, lying in bed and in no acute distress. HEENT--PERRL, EOMI, mucous membranes and oropharynx mildly dry Neck--supple. No JVD. No bruits. Thyroid normal, trachea midline, no adenopathy. Heart--normal S1 and S2. No murmurs, rubs or gallops. Lungs--reduced and on auscultation, Abdomen--normal bowel sounds and soft. Extremities--no cyanosis or clubbing. No edema. Dermatologic--normal skin turgor, normal color, no abnormal lymph nodes, no rash. Neurologic--cranial nerves II through XII grossly intact. Rheumatologic--normal range of motion. Psychiatric--normal affect. Discharge Data Allergies Allergy/AdvReac Type Severity Reaction Status Date / Time No Known Allergies Allergy Unverified 08/05/23 18:58 Consultations 08/20/23 14:02 ED Decision to Admit Stat 08/20/23 20:56 Consult Urology Routine Procedures Performed Operation Date: 08/21/23 08:20 Actual Procedures p Cystoscopy, Retrograde Pyelogram, Left Stent Placement(Left) - Jack Stubbs MD Ordered Studies 08/20/23 12:06 CT abd pelvis wo con Stat CT head/brain wo con Stat 08/21/23 14:00 FL retrograde includes kub Routine 08/23/23 11:00 FL barium swallow Routine Hospital Course (1) Acute heart failure with preserved ejection fraction (HFpEF): BNP was above 500, chest x-ray showed evidence of pulmonary congestion Patient has been getting better with diuresis 2D echo showed preserved ejection fraction Continue diuresis, monitor input and output, daily weights. Patient is making good urine Discharged on p.o. Lasix 40 mg daily (2) ARF (acute renal failure): -Etiology is uncertain, could be multifactorial, including prerenal due to dehydration, obstructive uropathy on account of left hydronephrosis seen on CT, UPJ obstruction versus parapelvic cyst, and also recent use of Bactrim -Renal function is now back to baseline following placement of ureteral stent by urology -Outpatient follow-up with urology following stent placement (3) Pulmonary congestion: Most likely the reason for her hypoxia and shortness of breath, as seen on chest x-ray Continue treatment above Probably will need oxygen at home, currently on 2L of oxygen through nasal cannula Attempt to wean down to room air resulted in desaturation. Two-step oxygen assessment showed she will need oxygen on activity. (4) UTI (urinary tract infection): - Cultures remain negative She completed a course of IV antibiotics. (5) HTN (hypertension): - Blood pressure is not slightly under better control. -Started p.o. clonidine 0.1 mg twice daily -Resume losartan which was previously held because of renal function (6) History of nephrolithiasis: Plan Discharge home Anxiety: Home bupropion/clonidine/risperidone/duloxetine continued DVT prophylaxis: Heparin Disposition: Medical/telemetry given troponin elevation CODE STATUS: Full code Diet: Regular diet Total Time Total Time Spent Total Time Spent (In Minutes): 35 Discharge Plan Discharge Items Patient Disposition: Home - Self-Care Reason For Visit: L UPJ OBSTRUCTION, ARF, UTI Discharge Diagnosis: Acute congestive heart failure, UTI Activity: Resume your previous activity Non-emergency contact: Primary Care Provider and Urologist Call non-emergency contact if: you have any medication questions Follow-up/Referrals: Jack Stubbs MD [Physician] - 09/03/23 2:50 pm Eren Peters MD [Primary Care Provider] - (PLEASE CALL YOUR PRIMARY CARE PROVIDER TO SCHEDULE A HOSPITAL DISCHARGE FOLLOW-UP APPOINTMENT WITHIN 7-10 DAYS) Diet: Regular Addtl Attending Provider Instructions: Please follow-up with urology as scheduled for management of your stent. [facility] Provider Instructions: Please call the urology office at [phone] with any questions, concerns or need to reschedule appointments for any reason. We are happy to assist you. You are scheduled for stent removal in the urology clinic with Dr. Stubbs on 09/03/2023. While you have a ureteral stent in place: Some discomfort is normal. Certain movements may trigger pain or a feeling that you need to urinate. You may also feel mild soreness or pressure before or during urination. These symptoms should go away a few days after the stent is removed. Your urine may be slightly pink or red. This is due to bleeding caused by minor irritation from the stent. This may happen on and off while you have the stent, it is not harmful and is to be expected. Medication to help minimize discomfort or bladder spasms, or to prevent infection may be prescribed. Take this as directed. Drink plenty of fluids to help flush out your urinary tract. When to call [facility] at [phone]: Your urine contains heavy blood clots or you are unable to urinate You are constantly leaking urine Fever of 101F or higher, chills, nausea, or vomiting Your pain is not relieved with medication The end of the stent comes out of your urethra Pending Studies at Discharge: No Stand-Alone Forms: My [employer], Smoking Cessation Medications and DC Order Prescriptions: New furosemide [Lasix] 40 mg tablet 40 mg PO DAILY Qty: 30 0RF potassium chloride 10 mEq capsule, extended release 10 meq PO DAILY Qty: 30 0RF Continued bupropion HCl 150 mg tablet sustained-release 12 hr 150 mg PO BID clonidine HCl 0.1 mg tablet 0.1 mg PO PM carvedilol 6.25 mg tablet 6.25 mg PO BID clonazepam 0.5 mg tablet 0.5 mg PO BID PRN (Reason: Anxiety) Rx Instructions: not on list 08/20/23 meloxicam 7.5 mg tablet 7.5 mg PO BID tolterodine 2 mg tablet 2 mg PO BID trazodone 100 mg tablet 150 mg PO HS ferrous sulfate [iron] 325 mg (65 mg iron) Tablet 325 mg PO QAM Rx Instructions: not on list 08/20/23 gabapentin 300 mg capsule 300 mg PO BID Rx Instructions: not on list 08/20/23 losartan 100 mg tablet 100 mg PO QAM risperidone 1 mg tablet 1 mg PO HS duloxetine 60 mg capsule,delayed release(DR/EC) 60 mg PO BID calcium carbonate-vitamin D3 [Calcium 600 + D(3)] 600 mg-10 mcg (400 unit) Tablet 1 tab PO BID docusate sodium 100 mg Capsule 100 mg PO BID lactobacillus bifidus See Rx Instructions .ROUTE .COMPLEX Rx Instructions: otc, as directed Discontinued cefdinir 300 mg capsule 300 mg PO BID Discharge Orders: Discharge Order (Routine); Ordered 08/24/23 Ordered By: Alden Pierre Admission Data Admit Date/Time: 08/20/23 14:32 Attending Provider: Alden Pierre Admit Provider: Sheng Hutchinson Primary Care Provider: Eren Peters Other Providers: Sheng Hutchinson; Sean Hernandez Coding Level of Care Code 99304 INP/OBS DISCH >30 MIN Diagnoses Acute heart failure with preserved ejection fraction (HFpEF) I50.31 ARF (acute renal failure) N17.9 Acute renal failure type: unspecified Pulmonary congestion R09.89 UTI (urinary tract infection) N39.0 Hematuria presence: without hematuria Urinary tract infection type: site unspecified HTN (hypertension) I10 History of nephrolithiasis Z87.442 Time Spent (min) 35
== END 2023-08-24 14:50 | disposition home or self-care (01) | DRG 659 ==
LOC: ED 10:38 → SUATTDRO 14:32 → EDINP 14:32 → 2N 15:40

== ENCOUNTER 2024-05-27 11:54 | Inpatient (IN) ==
--- NOTE | 2024-04-22 15:21 | PAT Medication Instructions ---
Medication Instructions Date of Service April 22, 2024 Home Medications bupropion HCl 150 mg tablet,12 hr sustained-release 150 mg PO BID calcium 600 mg (as carbonate)-vitamin D3 10 mcg (400 unit) tablet (Calcium 600 + D(3)) 1 tab PO BID carvedilol 6.25 mg tablet 6.25 mg PO BID clonazepam 0.5 mg tablet 0.5 mg PO BID PRN Anxiety clonidine HCl 0.1 mg tablet 0.1 mg PO PM duloxetine 60 mg capsule,delayed release 60 mg PO BID ferrous sulfate 325 mg (65 mg iron) tablet (iron) 325 mg PO QAM gabapentin 300 mg capsule 300 mg PO BID losartan 100 mg tablet 100 mg PO QAM meloxicam 7.5 mg tablet 7.5 mg PO BID risperidone 1 mg tablet 1 mg PO HS trazodone 100 mg tablet 150 mg PO HS docusate sodium 100 mg capsule 100 mg PO BID tolterodine 2 mg tablet 2 mg PO QAM MEDICATION INSTRUCTIONS: ASK your surgeon for instructions meloxicam 7.5 mg tablet 7.5 mg PO BID DO NOT take the morning of surgery ferrous sulfate 325 mg (65 mg iron) tablet (iron) 325 mg PO QAM losartan 100 mg tablet 100 mg PO QAM calcium 600 mg (as carbonate)-vitamin D3 10 mcg (400 unit) tablet (Calcium 600 + D(3)) 1 tab PO BID docusate sodium 100 mg capsule 100 mg PO BID tolterodine 2 mg tablet 2 mg PO QAM Take morning of surgery With a small sip of water, OTHERWISE NOTHING TO EAT OR DRINK AFTER MIDNIGHT: gabapentin 300 mg capsule 300 mg PO BID duloxetine 60 mg capsule,delayed release 60 mg PO BID carvedilol 6.25 mg tablet 6.25 mg PO BID bupropion HCl 150 mg tablet,12 hr sustained-release 150 mg PO BID clonazepam 0.5 mg tablet 0.5 mg PO BID PRN Anxiety Take evening before surgery gabapentin 300 mg capsule 300 mg PO BID duloxetine 60 mg capsule,delayed release 60 mg PO BID carvedilol 6.25 mg tablet 6.25 mg PO BID bupropion HCl 150 mg tablet,12 hr sustained-release 150 mg PO BID clonazepam 0.5 mg tablet 0.5 mg PO BID PRN Anxiety risperidone 1 mg tablet 1 mg PO HS clonidine HCl 0.1 mg tablet 0.1 mg PO PM trazodone 100 mg tablet 150 mg PO HS calcium 600 mg (as carbonate)-vitamin D3 10 mcg (400 unit) tablet (Calcium 600 + D(3)) 1 tab PO BID docusate sodium 100 mg capsule 100 mg PO BID Other Notes If you have any questions please call us at [phone] or [phone] or [phone] or [phone]
--- NOTE | 2024-05-02 13:58 | Anesthesiology Consultation ---
Date of Service May 02, 2024 Assessment & Plan (1) Encounter for pre-operative examination: pending: - cardiology pre-operative evaluation, 05/09/24 Dr. Sosa. - PCP pre-operative evaluation 05/13/24, Dr. Eren SINCLAIR. - brain imaging 05/15/24, [facility]. - Patient and her son Leobardo, who provides much of the history today, note that with memory changes (estimated onset 08/2023 with ongoing gradual improvement), there was concern for TIA/stroke by PCP. They state PCP ordered brain imaging which is being done at [facility] 05/15/24 and patient is scheduled with [facility] stroke clinic 06/24/24. She is scheduled for cardiology pre-operative evaluation with Dr. Sosa 05/09/24 and PCP 05/13/24. Patient and her son were advised that determination on if additional testing/evaluation will be needed prior to surgery will pend results of upcoming brain imaging. We also discussed that there is always potential for transient or permanent memory impact after surgery due to strain of surgery and anesthesia. They verbalized understanding and denied additional questions or concerns. Case discussed in detail with Dr. Chao who agreed with above plan. Chart Review Chart Review: Pending: Refer to Additional Notes / Consult section and Patient seen in Pre Admission Testing Teaching & Discussion Pre-Anesthesia Teaching/Discussion Notes: Instructed NPO after midnight before surgery, except medications with 15 cc of water. Medication instructions provided according to the PAT guidelines. History Surgery Operation Date: 05/27/24 07:45 Proposed Procedures p L4-S1 Decompression and Fusion with Spinal Cord Monitoring - Javier Castro, Height/Weight Height: 5 ft 4 in Weight: 80.9 kg Allergies Allergy/AdvReac Type Severity Reaction Status Date / Time No Known Allergies Allergy Verified 04/22/24 10:46 Additional Notes: Patient is accompanied today by her son Leobardo who assists with history and patient's care at home. Medications Home Medications Medication Instructions Recorded Confirmed Last Taken bupropion HCl 150 mg tablet,12 hr 150 mg PO BID 08/05/23 04/22/24 08/25/23 sustained-release calcium 600 mg (as 1 tab PO BID 08/05/23 04/22/24 08/25/23 carbonate)-vitamin D3 10 mcg (400 unit) tablet (Calcium 600 + D(3)) carvedilol 6.25 mg tablet 6.25 mg PO BID 08/05/23 04/22/24 08/25/23 clonazepam 0.5 mg tablet 0.5 mg PO BID PRN Anxiety 08/05/23 04/22/24 08/20/23 clonidine HCl 0.1 mg tablet 0.1 mg PO PM 08/05/23 04/22/24 08/24/23 duloxetine 60 mg capsule,delayed 60 mg PO BID 08/05/23 04/22/24 08/25/23 release ferrous sulfate 325 mg (65 mg 325 mg PO QAM 08/05/23 04/22/24 08/25/23 iron) tablet (iron) gabapentin 300 mg capsule 300 mg PO BID 08/05/23 04/22/24 08/25/23 losartan 100 mg tablet 100 mg PO QAM 08/05/23 04/22/24 08/25/23 meloxicam 7.5 mg tablet 7.5 mg PO BID 08/05/23 04/22/24 08/25/23 risperidone 1 mg tablet 1 mg PO HS 08/05/23 04/22/24 08/24/23 trazodone 100 mg tablet 150 mg PO HS 08/05/23 04/22/24 08/24/23 docusate sodium 100 mg capsule 100 mg PO BID 08/20/23 04/22/24 08/25/23 tolterodine 2 mg tablet 2 mg PO QAM 04/22/24 04/22/24 Unknown Past Medical History Medical History Aneurysm of heart son states, "they found a very small aneurysm in her heart in august, the doctor said it was nothing to worry about" echo 08/2023 Chronic back pain Depression with anxiety GERD (gastroesophageal reflux disease) controlled, stable per pt History of nephrolithiasis (08/2023) inpt. at [facility] HTN (hypertension) controlled, stable per pt Hx of heart failure EF 55-60% Hx of hydronephrosis (08/2023) Hx of renal failure (08/2023) per son, recently had renal scan Memory changes improving with pain reduction per patient/son--son Leobardo is patient's caregiver Pulmonary hypertension RVSP 40-50 mmHg 08/2023 echo during hospitalization at [facility] in setting of acute exacerbation of heart failure, acute renal failure, UTI Sciatica Suspected sleep apnea per son-no previous sleep study Urinary urgency Patient denies h/o seizures, heart attack, DM, blood clots/DVTs or blood transfusions. Exercise / Class Metabolic Activity III < 4 Walking/Shop/Light housework (denies chest discomfort or shortness of breath with usual activities) Past Surgical History Surgical History History of lumbar surgery (2009) L4-L5 Hx of colonoscopy S/P cystoscopy with ureteral stent placement (08/21/23) Past Anesthesia History No Family Hx of Anesthesia Complications and Other (post-op confusion) History of PONV No Hx of PONV and No Hx of Motion Sickness Social History Smoking Status: Former smoker Do You Dip or Chew Tobacco: No Smoking End Date: quit 2021 Hx Alcohol Use: No Hx Substance Use: No substance use type: does not use Review of Systems Patient denies chest pain, shortness of breath, dyspnea on exertion, fever, chills, cough, wheezing, or palpitations. Physical Exam Vital Signs Vitals BP 157/97 P 70 TEMP 97.4 SP02 96% on RA RESP 18 Physical Patient resting comfortably in chair in no acute distress, alert and oriented, responding appropriately throughout visit Full cervical extension range of motion without pain TMD < 3 finger breadths Mallampati Score 3 Dentition: several crowns, denies chipped or loose teeth, caps, implants or bridges Lungs: normal respiratory effort. Good air movement, clear throughout to auscultation, no adventitious breath sounds Cardiac: regular rate and rhythm, no murmurs noted Carotid arteries: negative bruit bilat Lab Results Anesthesia Preop Results Results Anesthesia Widget: WBC 4.37 K/ul (4.8-10.8) L 05/02/24 Hgb 11.6 g/dl (12.0-16.0) L 05/02/24 Hct 35.2 % (37.0-47.0) L 05/02/24 Plt 289 K/uL (130-400) 05/02/24 Na 137 mmol/L (136-145) 05/02/24 K 3.5 mmol/L (3.5-5.1) 05/02/24 Cl 102 mmol/L (98-107) 05/02/24 CO2 31 mmol/L (21-32) 05/02/24 BUN 11 mg/dl (6-23) 05/02/24 Creat 1.04 mg/dl (0.6-1.2) 05/02/24 Glucose Level 107 mg/dl (70-99(Fasting)) H 05/02/24 PT 10.5 Seconds (9.0-12.0) 05/02/24 PTT 27 Seconds (21-31) 05/02/24 INR 1.0 (0.9-1.1) 05/02/24 Urine Color Yellow 05/02/24 Urine Appearance Clear (Clear) 05/02/24 Urine pH 5.5 (4.5-7.5) 05/02/24 Urine Specific [place] 1.018 (1.000-1.030) 05/02/24 Urine Protein Negative (Negative) 05/02/24 Urine Glucose (UA) Negative (Negative) 05/02/24 Urine Ketones Trace (Negative) H 05/02/24 Urine Blood Trace (Negative) H 05/02/24 Urine Nitrite Negative (Negative) 05/02/24 Urine Bilirubin Negative (Negative) 05/02/24 Urine Urobilinogen Negative (Negative) 05/02/24 Urine Leukocyte Esterase Negative (Negative) 05/02/24 Urine WBC (Auto) 0-5 /hpf (0-5) 05/02/24 Urine RBC (Auto) 11-20 /hpf (0-2) H 05/02/24 Urine Hyaline Casts (Auto) 0-2 /lpf (0-2) 05/02/24 Urine Epithelial Cells (Auto) 0-2 /hpf (0-2) 05/02/24 Urine Bacteria (Auto) None Seen (None Seen) 05/02/24 Blood Type O Negative 05/02/24 Antibody Screen NEGATIVE 05/02/24 Testing Electrocardiogram Date: 08/20/23 NSR, rate [address] abnormality No significant change vs 08/05/23 EKG Chest X-Ray Date: 05/02/24 Normal chest X-ray. No acute cardiopulmonary abnormalities identified. Echocardiogram Date: 08/22/23 EF 55-60% Normal LV wall motion Mild cLVH RVSP elevated at 40-50 mmHg Mild tricuspid regurgitation Other Testing Abdomen pelvis CT 08/25/23 1. A left ureteral stent is in place. No calcifications are seen along the course of the stent. 2. There is fullness of the left upper pole collecting system. This has largely decompressed as compared to 08/20/2023. Hydronephrosis of the left upper pole may have been caused by mass effect from a large cyst. 3. Nonobstructing left renal calculi. 4. Mild patchy airspace consolidation is seen in the right middle lobe. Correlate clinically for evidence of a mild pneumonitis. Radiographic follow-up to resolution is recommended. 5. Trace pleural effusions. 6. Additional findings as above. Head CT 08/20/23 No significant change compared to the prior study. No acute intracranial abnormality.
[~2024-05-27 11:54] MED LIST: DEXAMETHASONE SOD INJ 4 MG/ML VIAL ONE; LIDOCAINE 2% 2 ML VIAL/AMP(20MG/ML) INFIL ONE; MIDAZOLAM HCL 1 MG/ML 2ML VIAL ONE; ONDANSETRON INJ 2 MG/ML 2 ML VIAL ONE; PROPOFOL IV EMULSION 10 MG/ML 20 ML VIAL IV ONE; ROCURONIUM BROMIDE 10 MG/ML 5 ML VIAL IV ONE; fentaNYL citrate PF 100 MCG/2 ML VIAL ONE
[2024-05-27] MEDS: ACETAMINOPHEN 500 MG TAB PO SCH (13:07)
[2024-05-27] MEDS: CeleBREX 200 MG CAP PO SCH (13:07)
[2024-05-27] MEDS: LR 60ML/HR IV SCH (13:08)
[2024-05-27] MEDS: LR 15ML/HR IV SCH (13:08)
[2024-05-27] MEDS: GABAPENTIN 300 MG CAP PO SCH ×2 (13:09→20:51)
--- NOTE | 2024-05-27 13:09 | History & Physical Bridge Note ---
Date of Service May 27, 2024 History & Physical Bridge Note I have examined the patient, reviewed the History & Physical and in the interval since the performance of the History & Physical I have noted the following changes of clinical significance: no changes noted
--- NOTE | 2024-05-27 13:10 | History & Physical Report ---
Date of Service May 27, 2024 Assessment & Plan (1) Lumbosacral spondylosis with radiculopathy: Plan: L4-S1 decompression and fusion History of Present Illness Chief Complaint: Back and bilateral leg pain Primary Care Provider: Eren Peters MD This is a 69-year-old female who presents with chronic persistent back and leg pain after failing course of nonoperative care is here for surgical intervention. Allergies Allergy/AdvReac Type Severity Reaction Status Date / Time No Known Allergies Allergy Verified 05/27/24 12:31 Home Medications Medication Instructions Recorded Confirmed Type bupropion HCl 150 mg tablet,12 hr 150 mg PO BID 08/05/23 05/27/24 History sustained-release calcium 600 mg (as 1 tab PO BID 08/05/23 05/27/24 History carbonate)-vitamin D3 10 mcg (400 unit) tablet (Calcium 600 + D(3)) clonazepam 0.5 mg tablet 0.5 mg PO BID PRN Anxiety 08/05/23 05/27/24 History clonidine HCl 0.1 mg tablet 0.1 mg PO PM 08/05/23 05/27/24 History duloxetine 60 mg capsule,delayed 60 mg PO BID 08/05/23 05/27/24 History release gabapentin 300 mg capsule 300 mg PO BID 08/05/23 05/27/24 History losartan 100 mg tablet 100 mg PO QAM 08/05/23 05/27/24 History meloxicam 7.5 mg tablet 7.5 mg PO BID 08/05/23 05/27/24 History risperidone 1 mg tablet 1 mg PO HS 08/05/23 05/27/24 History trazodone 100 mg tablet 150 mg PO HS 08/05/23 05/27/24 History docusate sodium 100 mg capsule 100 mg PO BID 08/20/23 05/27/24 History tolterodine 2 mg tablet 2 mg PO QAM 04/22/24 05/27/24 History carvedilol 12.5 mg tablet 12.5 mg PO BID 05/14/24 05/27/24 History cyclobenzaprine 10 mg tablet 10 mg PO BID 05/14/24 05/27/24 History donepezil 5 mg tablet 5 mg PO HS 05/14/24 05/27/24 History ketorolac 10 mg tablet 10 mg PO QID 05/14/24 05/27/24 History hydrocodone 5 mg-acetaminophen 325 0.5 - 1 tab PO Q6H PRN pain #14 05/16/24 05/27/24 Rx mg tablet tabs Past Med/Surg History Problem List (Updated 05/27/24 @ 13:09 by Javier Castro DO) Lumbosacral spondylosis with radiculopathy Lumbar radiculopathy (Acute) Right sided sciatica (Acute) Bilateral lower extremity edema (Acute) Encounter for pre-operative examination HTN (hypertension) Medical History (Updated 05/27/24 @ 13:09 by Javier Castro DO) Carotid aneurysm, right Ascending aortic aneurysm GERD (gastroesophageal reflux disease) controlled, stable per pt Suspected sleep apnea per son-no previous sleep study Pulmonary hypertension RVSP 40-50 mmHg 08/2023 echo during hospitalization at [facility] in setting of acute exacerbation of heart failure, acute renal failure, UTI Hx of hydronephrosis (08/2023) Chronic back pain Memory changes improving with pain reduction per patient/son--son Leobardo is patient's caregiver Sciatica Depression with anxiety Urinary urgency Hx of renal failure (08/2023) per son, recently had renal scan Hx of heart failure EF 55-60% HTN (hypertension) controlled, stable per pt History of nephrolithiasis (08/2023) inpt. at [facility] Surgical History Hx of colonoscopy S/P cystoscopy with ureteral stent placement (08/21/23) History of lumbar surgery (2009) L4-L5 Social History Smoking Status: Never smoker Tobacco Type: Cigarettes Smoking End Date: quit 2021; Second Hand Exposure: No; Do You Dip or Chew Tobacco: No; Tobacco Cessation Education Requested by Patient: No Hx Alcohol Use: No Hx Substance Use: No Preferred Language: Trinidadian Communication Ability: Effective Funeral Greeter Required: No Beliefs That Will Affect Care: Religion Religion Beliefs: jainism Current Living Situation: Family Current Living Situation Comment: [facility] Other Information That Helps Us Care for You: No Feels Safe at Home: Yes Safety Concerns: Feels Safe At This Time Assistive Devices: Glasses Physical Exam Physical Exam: Patient is alert and oriented heart regular in rhythm Lungs clear Results & Data Results & Data Vital Signs (Past 12 Hours) Vital Signs Temp Pulse Resp BP Pulse Ox O2 Del Method 05/27/24 12:47 Room Air 05/27/24 12:47 36.4 C L 68 20 214/109 H 98 Room Air
[2024-05-27] MEDS ORDERED: PROMETHAZINE HCL 6.25 MG in SODIUM CHLORIDE 0.9% 50 ML IV PRN (13:35)
[2024-05-27] MEDS: ceFAZolin 2000MG 2,000 MG/15 ML SYR IV SCH ×2 (13:35→22:07)
[2024-05-27] MEDS ORDERED: ePHEDrine sulfate 50 MG/ML AMP IV PRN (13:35)
[2024-05-27] MEDS ORDERED: ATROPINE SULFATE 0.1 MG/ML 10ML SYR IV PRN (13:35)
[2024-05-27] MEDS: BUPIVACAINE/EPINEPHRINE 0.25% 1:200,000 30 ML VIAL ONE (14:29)
[2024-05-27] MEDS: ceFAZolin 330 MG/ML 1 GM VIAL ONE (14:30)
[2024-05-27] MEDS ORDERED: SUGAMMADEX SODIUM 200 MG/2 ML VIAL IV ONE (15:10)
[2024-05-27] MEDS ORDERED: ROCURONIUM BROMIDE 10 MG/ML 5 ML VIAL IV ONE (15:10)
[2024-05-27] MEDS: FLOSEAL HEMOSTATIC MATRIX 10ML TOP ONE (15:14)
--- NOTE | 2024-05-27 15:19 | Operative Report ---
Post Operative Report Pre & Post Diagnosis Operation Date: 05/27/24 13:25 Pre-Op Diagnosis: #1 lumbar spondylosis with radiculopathy #2 lumbar disc herniation with radiculopathy #3 lumbar degenerative disc disease Post-Op Diagnosis: Same I identified the patient and participated in the time-out.: Yes Procedure Operation Date: 05/27/24 13:25 Actual Procedures #1 revision decompression bilateral medial facetectomies and foraminotomies L3- L4, L4-5 and L5-S1. #2 posterior spinal fusion L4-L5 L5-S1. #3 placed posterior instrumentation L4-S1. #4 interbody fusion L4-L5 L5-S1. #5 placement of Spira 13 x 26 mm at L4-5 and 8 x 22 mm x 2 at L5-S1. #6 placement of locally harvested morselized autograft posterior gutters. #7 placement fuse collagen s ponge, with Koros in the posterior lateral gutters and os design and interbody space. #8 application of versa wrap over the exposed dura. Surgeon Javier Castro, Part Time Flexible Clerk Yudi La Estimated Blood Loss 150 Findings Consistent with Post-Op Diagnosis Specimens None Indications This is a 61-year-old female who presents with chronic persistent back and leg pain and failing course of nonoperative care is here for surgical invention Description of Procedure Patient was met with identified informed consent obtained. Patient was then taken to the operative suite underwent intubation placed in a prone position on the Ruiz table atop the Tai frame. All bony promises well-padded eyes inspected to ensure no external pressure placed upon them. This point the lumbar spine was prepped and draped in normal sterile fashion. Sharp dissection with the assistance of Bovie cautery performed down to and exposing the remaining lamina and transverse processes of L4-L5 and the sacral ala bilaterally. From caudal to cephalad fashion revision complete laminectomy of L5 was performed including bilateral medial facetectomies and foraminotomies addressing severe spinal stenosis. This was followed by laminectomy of L4 with bilateral medial facetectomies and foraminotomies as well as addressing a disc herniation causing neural compression. Lastly partial laminectomy of L3 with bilateral medial facetectomies to address all subarticular stenosis. Pedicle screws then placed in L4-L5 and S1 levels bilaterally with assistance of fluoroscopy in the process mahad placed. By way of transforaminal approach on the right a discectomy of L5-S1 was performed endplates corrected to subcortical mean bone and 8 x 22 mm spiral cage filled with os design bone graft tapped in position. Then proceeded to the left transforaminal region L5-S1. Again discectomy performed. Endplates grade 2 subcortical bleeding bone and a second 8 x 22 mm Spira cage filled with os designed tapped in position. Then proceeded to the L4-5 transforaminal region on the right. Complete discectomy was performed endplates guided to subcortical bleeding bone and the 13 x 26 mm Spira cage filled with Oxyzyme tapped in position. The rods were then compressed locked into final position bilaterally. The transverse processes of L4-5 and sacral ala burred to subcortical bleeding bone. Infuse collagen sponge combined with Koros and local autograft placed in the posterior lateral gutters. Versa wrap placed over the exposed dura. 15 round MINERVA drain inserted. The incision was then closed with 1 Vicryl the fascia 2-0 Vicryl subcutaneously and 4 Monocryl for final skin closure. Steri-Strips sterile dressing placed. Patient waken taken to PACU stable condition. Please note spinal cord monitoring was utilized at the procedure no changes noted. Lastly Yudi La was present at the entire surgery and while the patient positioning complex portion of the surgery and final skin closure. I attest to the content of the Intraoperative Record and any orders documented therein. Any exceptions are noted below.
--- NOTE | 2024-05-27 15:34 | Fluoroscopy Report ---
FL lumbar spine 2-3V CLINICAL HISTORY: L4-S1 DECOMPRESSION AND FUSION COMPARISON STUDY: None FLUOROSCOPY TIME: 20 seconds FLUOROSCOPY IMAGES: 3 EXPOSURE DOSE: 19 mGy FINDINGS: Fluoroscopy was provided for lumbar metallic fusion. IMPRESSION: Intraoperative fluoroscopy. ACT 112: Negative or not required by law. Electronically signed by: Tito Morales M.D. 05/27/2024 3:32 PM
[2024-05-27] MEDS: HYDROmorphone INJ 1 MG/ML SYRINGE IV PRN ×2 (15:46→18:52)
[2024-05-27] MEDS ORDERED: ONDANSETRON 4 MG OD TAB PO PRN (16:45)
[2024-05-27] MEDS ORDERED: traMADol HCL 50 MG TABLET PO PRN (16:45)
[2024-05-27] MEDS ORDERED: DO NOT ADMINISTER FLU VACCINE PRN (16:45)
[2024-05-27] MEDS ORDERED: LORazepam 2 MG/1 ML VIAL IV PRN (16:45)
[2024-05-27] MEDS ORDERED: METOCLOPRAMIDE HCL INJ 5 MG/ML 2 ML VIAL IV PRN (16:45)
[2024-05-27] MEDS ORDERED: MAGNESIUM HYDROXIDE SUSP 30 ML UDC PO PRN (16:45)
[2024-05-27] MEDS ORDERED: clonazePAM 0.5 MG TAB PO PRN (16:45)
[2024-05-27] MEDS ORDERED: LORazepam 0.5 MG TAB PO PRN (16:45)
[2024-05-27] MEDS ORDERED: DO NOT ADMINISTER PNEUMOCOCCAL VACCINE PRN (16:45)
[2024-05-27] MEDS ORDERED: HYDROmorphone INJ 0.5 MG/0.5 ML SYR IV PRN (16:45)
[2024-05-27] MEDS ORDERED: NALOXONE HCL 0.4 MG/1 ML VIAL/CARP IV PRN (16:45)
[2024-05-27] MEDS ORDERED: hydrOXYzine HCl 25 MG TAB PO PRN (16:45)
[2024-05-27] MEDS ORDERED: SOD PHOSPHATE/SOD BIPHOSPHATE ENEMA 132 ML BTL PR PRN (16:45)
[2024-05-27] MEDS ORDERED: FAMOTIDINE 20 MG TAB PO PRN (16:45)
[2024-05-27] MEDS ORDERED: ALUMINUM/MAGNESIUM SUSP 30 ML UDC PO PRN (16:45)
[2024-05-27] MEDS ORDERED: bisacodyL 10 MG SUPP PR PRN (16:45)
[2024-05-27] MEDS: oxyCODONE HCL IR 5 MG TAB (IMMEDIATE RELEASE) PO PRN (16:59)
--- NOTE | 2024-05-27 17:20 | Anesthesiology Progress Note ---
Date of Service May 27, 2024 Anesthesia Post Procedure Vital Signs Vital Signs: Temp Pulse Pulse Resp BP BP Pulse Ox 05/27/24 17:07 97.3 F L 67 14 216/107 H 99 05/27/24 16:20 67 14 168/76 H 96 05/27/24 16:10 97.3 F L 67 19 162/77 H 98 05/27/24 16:00 64 10 L 162/92 H 92 05/27/24 15:50 67 13 152/90 H 95 05/27/24 15:40 66 17 160/89 H 94 05/27/24 15:34 96.8 F L 63 13 159/87 H 97 05/27/24 12:47 05/27/24 12:47 97.5 F L 68 20 214/109 H 98 O2 Del Method O2 Flow Rate 05/27/24 17:07 Nasal Cannula 05/27/24 16:20 Nasal Cannula 2 05/27/24 16:10 Nasal Cannula 2 05/27/24 16:00 Nasal Cannula 2 05/27/24 15:50 Oxymask 4 05/27/24 15:40 Oxymask 6 05/27/24 15:34 Oxymask 6 05/27/24 12:47 Room Air 05/27/24 12:47 Room Air Pain Intensity Back: Pain Intensity: 4 Transfer of Care Handoff Completed per policy Notes Mental Status: alert / awake / arousable and participated in evaluation Patient Amnestic to Procedure: Yes Nausea / Vomiting: adequately controlled Pain: adequately controlled Airway Patency, RR, SpO2: stable & adequate BP & HR: stable & adequate Hydration State: stable & adequate Anesthetic Complications: no major complications apparent and Pt Satisfied with anesthetic care
[2024-05-27] MEDS: cloNIDine HCL 0.1 MG TAB PO SCH (17:49)
[2024-05-27] MEDS: hydrALAZINE HCL 20 MG/ML VIAL IV STA (18:18)
[2024-05-27] MEDS: carvediloL 12.5 MG TAB PO SCH (18:30)
--- NOTE | 2024-05-27 18:38 | Hospitalist Consultation ---
Date of Consultation May 27, 2024 Assessment & Plan (1) Lumbosacral spondylosis with radiculopathy: Plan per primary service Primary service managing pain Patient does not seem to be in severe pain at this time (2) HTN (hypertension): Postoperatively, her blood pressure was >210/>110. She was given clonidine (her usual medication) with no response Once she was given hydralazine 10 mg IV, her blood pressure is down to 159/91 I ordered further hydralazine IV to be used on an as-needed basis I instructed the nurse to give her p.m. dose of Coreg Continue losartan in a.m. The patient had missed her morning medications which may have led to her high blood pressure Now that her p.m. medications are being resumed, her blood pressure should be better controlled We will need to be extra cautious given her history of cerebral and carotid aneurysm Patient denies any headache Pain seems to be well-controlled at this time She does not appear to be anxious Plan The hospitalist service will follow along and will respond to medical needs for this patient. Thank you for the consult History of Present Illness Reason for Consultation: Elevated blood pressure in the postoperative phase Requesting Physician: Dr. Castro Attending Physician: Javier Castro, DO History of Present Illness This is a 69-year-old female with a history of hypertension (on 3 blood pressure medications), history of HFpEF (was treated with Lasix in August 2023, not on Lasix anymore), small cerebral aneurysm noted on CT angio 05/31, depression/anxiety, who had a back surgery done by Dr. Castro for lumbosacral spondylosis with radiculopathy. Postsurgically, her blood pressure was very high and thus the hospitalist service was consulted. The patient does not have any complaints other than mild back pain. She denies severe pain anywhere. She denies feeling anxious. She denies headaches. Over the last few hours, her blood pressure has been >210/>110. I ordered a stat dose of hydralazine 10 mg IV x 1 before I saw the patient. During my encounter her blood pressure was already starting to come down. Her son was at the bedside helping with history taking. Allergies Allergy/AdvReac Type Severity Reaction Status Date / Time No Known Allergies Allergy Verified 05/27/24 12:31 Home Medications Medication Instructions Recorded Confirmed Type bupropion HCl 150 mg tablet,12 hr 150 mg PO BID 08/05/23 05/27/24 History sustained-release calcium 600 mg (as 1 tab PO BID 08/05/23 05/27/24 History carbonate)-vitamin D3 10 mcg (400 unit) tablet (Calcium 600 + D(3)) clonazepam 0.5 mg tablet 0.5 mg PO BID PRN Anxiety 08/05/23 05/27/24 History clonidine HCl 0.1 mg tablet 0.1 mg PO PM 08/05/23 05/27/24 History duloxetine 60 mg capsule,delayed 60 mg PO BID 08/05/23 05/27/24 History release gabapentin 300 mg capsule 300 mg PO BID 08/05/23 05/27/24 History losartan 100 mg tablet 100 mg PO QAM 08/05/23 05/27/24 History meloxicam 7.5 mg tablet 7.5 mg PO BID 08/05/23 05/27/24 History risperidone 1 mg tablet 1 mg PO HS 08/05/23 05/27/24 History trazodone 100 mg tablet 150 mg PO HS 08/05/23 05/27/24 History docusate sodium 100 mg capsule 100 mg PO BID 08/20/23 05/27/24 History tolterodine 2 mg tablet 2 mg PO QAM 04/22/24 05/27/24 History carvedilol 12.5 mg tablet 12.5 mg PO BID 05/14/24 05/27/24 History cyclobenzaprine 10 mg tablet 10 mg PO BID 05/14/24 05/27/24 History donepezil 5 mg tablet 5 mg PO HS 05/14/24 05/27/24 History ketorolac 10 mg tablet 10 mg PO QID 05/14/24 05/27/24 History hydrocodone 5 mg-acetaminophen 325 0.5 - 1 tab PO Q6H PRN pain #14 05/16/24 05/27/24 Rx mg tablet tabs Patient History Medical History Carotid aneurysm, right Ascending aortic aneurysm GERD (gastroesophageal reflux disease) controlled, stable per pt Suspected sleep apnea per son-no previous sleep study Pulmonary hypertension RVSP 40-50 mmHg 08/2023 echo during hospitalization at [facility] in setting of acute exacerbation of heart failure, acute renal failure, UTI Hx of hydronephrosis (08/2023) Chronic back pain Memory changes improving with pain reduction per patient/son--son Leobardo is patient's caregiver Sciatica Depression with anxiety Urinary urgency Hx of renal failure (08/2023) per son, recently had renal scan Hx of heart failure EF 55-60% HTN (hypertension) controlled, stable per pt History of nephrolithiasis (08/2023) inpt. at [facility] Surgical History Hx of colonoscopy S/P cystoscopy with ureteral stent placement (08/21/23) History of lumbar surgery (2009) L4-L5 Social History Smoking Status: Never smoker Tobacco Type: Cigarettes Smoking End Date: quit 2021; Second Hand Exposure: No; Do You Dip or Chew Tobacco: No; Tobacco Cessation Education Requested by Patient: No Hx Alcohol Use: No Hx Substance Use: No Preferred Language: Lao Communication Ability: Effective Squilgeer Required: No Beliefs That Will Affect Care: Evangelical Evangelical Beliefs: restoration Current Living Situation: Family Current Living Situation Comment: son leobardo Other Information That Helps Us Care for You: No Feels Safe at Home: Yes Safety Concerns: Feels Safe At This Time Assistive Devices: Glasses Review of Systems Review of Systems: All systems reviewed & are unremarkable except as noted in Subjective Physical Exam Physical Exam: General: Awake, conversant but slightly sleepy in the postoperative phase Heart: S1, S2/regular rate and rhythm, no murmur rubs or gallops Lungs: Clear to auscultation bilaterally. Normal effort Abdomen: Soft/nontender/nondistended. No hepatosplenomegaly Extremities: No clubbing/cyanosis. No edema Behavior: Appropriate, cooperative Results & Data Results & Data Vital Signs (Past 12 Hours) Vital Signs Temp Pulse Pulse Resp BP BP Pulse Ox 05/27/24 18:33 159/91 H 05/27/24 18:26 36.3 C L 79 14 98 05/27/24 18:22 191/101 H 05/27/24 18:15 210/118 H 05/27/24 18:00 76 211/114 H 05/27/24 17:42 71 18 227/115 H 98 05/27/24 17:20 71 14 234/119 H 100 05/27/24 17:07 36.3 C L 67 14 216/107 H 99 05/27/24 16:30 05/27/24 16:30 36.3 C L 70 14 177/94 H 100 05/27/24 16:20 67 14 168/76 H 96 05/27/24 16:10 36.3 C L 67 19 162/77 H 98 05/27/24 16:00 64 10 L 162/92 H 92 05/27/24 15:50 67 13 152/90 H 95 05/27/24 15:40 66 17 160/89 H 94 05/27/24 15:34 36.0 C L 63 13 159/87 H 97 05/27/24 12:47 05/27/24 12:47 36.4 C L 68 20 214/109 H 98 O2 Del Method O2 Flow Rate 05/27/24 18:33 05/27/24 18:26 Nasal Cannula 2 05/27/24 18:22 05/27/24 18:15 05/27/24 18:00 05/27/24 17:42 Room Air 05/27/24 17:20 Nasal Cannula 2 05/27/24 17:07 Nasal Cannula 05/27/24 16:30 Nasal Cannula 2 05/27/24 16:30 Nasal Cannula 2 05/27/24 16:20 Nasal Cannula 2 05/27/24 16:10 Nasal Cannula 2 05/27/24 16:00 Nasal Cannula 2 05/27/24 15:50 Oxymask 4 05/27/24 15:40 Oxymask 6 05/27/24 15:34 Oxymask 6 05/27/24 12:47 Room Air 05/27/24 12:47 Room Air Laboratory Results Abnormal lab results 05/27/24 Range/Units 12:24 Crossmatch See Detail PG Care Time/CCT Total # of Minutes Spent Total Time Spent with Patient: Total time spent is greater than 50% in coordination of care (as documented) at patient's floor/unit and/or counseling patient: Coding Level of Care Code 84923 IN/OBS CONSULT LVL 4,60M Diagnoses Lumbosacral spondylosis with radiculopathy M47.27 HTN (hypertension) I10
[2024-05-27] MEDS: risperiDONE 1 MG TABLET PO SCH (20:50)
[2024-05-27] MEDS: DOCUSATE SODIUM/SENNA 50/8.6MG TAB PO SCH (20:50)
[2024-05-27] MEDS: buPROPion SR 150 MG TABCR PO SCH (20:50)
[2024-05-27] MEDS: DULoxetine HCL 60 MG CAP PO SCH (20:50)
[2024-05-27] MEDS: DONEPEZIL HCL 5 MG TAB PO SCH (20:51)
[2024-05-27] MEDS: CALCIUM 600MG + VIT D 400 IU TAB PO SCH (20:51)
[2024-05-27] MEDS: traZODone HCL 50 MG TAB PO SCH (23:35)
[2024-05-28] MEDS: hydrALAZINE HCL 20 MG/ML VIAL IV PRN (02:09)
[2024-05-28] MEDS: ACETAMINOPHEN 1,000 MG/100 ML VIAL IV PRN (04:18)
[2024-05-28] MEDS: ONDANSETRON INJ 2 MG/ML 2 ML VIAL IV PRN (04:19)
[2024-05-28] MEDS: diphenhydrAMINE Capsule 25 MG CAP PO PRN (05:44)
[2024-05-28] MEDS: POLYETHYLENE (MIRALAX) 17 GM PACK PO SCH (05:44)
[2024-05-28] MEDS: PROMETHAZINE 12.5 MG/50.5 ML BAG IV PRN (06:00)
[2024-05-28 07:20] LABS: Hematocrit (blood only) 34.1 % (37.0-47.0); Hemoglobin 11.2 g/dl (12.0-16.0); Mean Corpuscular Hemoglobin 28.1 pg (25.0-34.0); Mean Corpuscular Hgb Conc 32.8 g/dL (32.0-36.0); Mean Corpuscular Volume 85.5 fL (80.0-100.0); Mean Platelet Volume 10.1 fL (9.4-12.4); Platelet Count 246 K/uL (130-400); RDW Standard Deviation 37.5 fL (36.4-46.3); Red Blood Count 3.99 M/uL (4.20-5.40); White Blood Count 10.92 K/ul (4.8-10.8)
[2024-05-28 07:34] LABS: BUN Creatinine Ratio 16.9 (10-20); Calcium 9.4 mg/dl (8.6-10.3); Creatinine Clr Calc Pharmacy 61.7 ml/min; Potassium 4.3 mmol/L (3.5-5.1)
[2024-05-28 07:52] LABS: Basophils # (auto) 0.01 K/uL (0.00-0.20); Basophils % (auto) 0.1 %; Immature Granulocytes # (auto) 0.07 K/uL (0.01-0.20); Immature Granulocytes % (auto) 0.6 %; Lymphocytes # (auto) 0.42 K/uL (1.20-3.40); Lymphocytes % (auto) 3.8 %; Monocytes # (auto) 0.58 K/uL (0.11-0.59); Monocytes % (auto) 5.3 %; Neutrophils # (auto) 9.84 K/uL (1.40-6.50); Neutrophils % (auto) 90.2 %
[2024-05-28] MEDS: LOSARTAN POTASSIUM 50 MG TAB PO SCH (08:43)
[2024-05-28] MEDS: OXYBUTYNIN CHLORIDE XL 5 MG TABCR PO SCH (08:43)
[2024-05-28] MEDS: dexAMETHasone 6 MG in SYRINGE 0 ML IV SCH (09:51)
--- NOTE | 2024-05-28 12:32 | Orthopedic Progress Note ---
Date of Service May 28, 2024 Assessment & Plan (1) Lumbosacral spondylosis with radiculopathy: Plan: At this time we will continue physical therapy monitor MINERVA operatively discharge home the next few days. Admission and Anticipated Discharge Date Admission Date: May 27, 2024 Subjective Patient's back pain is controlled leg symptoms markedly improved Physical Exam Physical Exam: Patient is in the chair at the bedside. She is comfortable. Distracted testing. Results & Data Vital Signs (Past 12 Hours) Vital Signs Temp Pulse Pulse Resp BP Pulse Ox O2 Del Method 05/28/24 12:08 72 18 100/62 95 Room Air 05/28/24 08:16 36.5 C 86 18 148/81 H 93 Room Air 05/28/24 03:05 138/77 05/28/24 02:08 172/89 H 05/28/24 02:07 36.5 C 89 16 172/89 H 99 Room Air
--- NOTE | 2024-05-28 15:41 | Hospitalist Progress Note ---
Date of Service May 28, 2024 Assessment & Plan (1) Lumbosacral spondylosis with radiculopathy: Plan: Plan per primary service Primary service managing pain Patient does not seem to be in severe pain at this time (2) HTN (hypertension): Plan: Postoperatively, her blood pressure was >210/>110. Continue home medications including losartan, carvedilol, clonidine Hydralazine IV available to be used as needed No headache, chest pain or shortness of breath Continue to monitor blood pressure Admission and Anticipated Discharge Date Admission Date: May 27, 2024 Subjective Patient was seen and examined at 11:05 AM. She feels well. She tells me with a smile that her blood pressure is very well-controlled. Review of Systems Review of Systems: All systems reviewed & are unremarkable except as noted in Subjective Physical Exam Physical Exam: General: Awake, conversant. Patient is sitting up in her chair Heart: S1, S2/regular rate and rhythm, no murmur rubs or gallops Lungs: Clear to auscultation bilaterally. Normal effort Abdomen: Soft/nontender/nondistended. No hepatosplenomegaly Extremities: No clubbing/cyanosis. No edema Behavior: Appropriate, cooperative Results & Data Results & Data Vital Signs (Past 12 Hours) Vital Signs Temp Pulse Resp BP Pulse Ox O2 Del Method 05/28/24 15:19 36.5 C 79 18 123/70 91 Room Air 05/28/24 12:08 72 18 100/62 95 Room Air 05/28/24 08:16 36.5 C 86 18 148/81 H 93 Room Air Laboratory Results Abnormal lab results 05/28/24 Range/Units 06:34 WBC 10.92 H (4.8-10.8) K/ul RBC 3.99 L (4.20-5.40) M/uL Hgb 11.2 L (12.0-16.0) g/dl Hct 34.1 L (37.0-47.0) % Neut # (Auto) 9.84 H (1.40-6.50) K/uL Lymph # (Auto) 0.42 L (1.20-3.40) K/uL Glucose 120 H (70-99(Fasting)) mg/dl PG Care Time/CCT Total # of Minutes Spent Total Time Spent with Patient: Total time spent is greater than 50% in coordination of care (as documented) at patient's floor/unit and/or counseling patient: Coding Level of Care Code 23607 SUB INP/OBS CARE Diagnoses Lumbosacral spondylosis with radiculopathy M47.27 HTN (hypertension) I10
--- NOTE | 2024-05-29 12:30 | Orthopedic Progress Note ---
Date of Service May 29, 2024 Assessment & Plan (1) Lumbosacral spondylosis with radiculopathy: Plan: At this time continue physical therapy monitor her MINERVA output anticipate discharge home tomorrow. Admission and Anticipated Discharge Date Admission Date: May 27, 2024 Subjective Back pain is controlled leg pain markedly improved. Patient is tolerating physical therapy. Physical Exam Physical Exam: Patient is currently in bed. She is comfortable. Discussed when to testing. Patient is seen and I did Results & Data Vital Signs (Past 12 Hours) Vital Signs Temp Pulse Resp BP Pulse Ox O2 Del Method 05/29/24 07:45 Room Air 05/29/24 06:59 36.6 C 75 18 148/71 H 94 Room Air
--- NOTE | 2024-05-29 15:07 | Hospitalist Progress Note ---
Date of Service May 29, 2024 Assessment & Plan (1) Lumbosacral spondylosis with radiculopathy: Plan: Plan per primary service Primary service managing pain Patient does not seem to be in severe pain at this time (2) HTN (hypertension): Plan: Postoperatively, her blood pressure was >210/>110. Currently blood pressure is well-controlled on minimal medications Continue home medications including losartan, carvedilol, clonidine Hydralazine IV available to be used as needed No headache, chest pain or shortness of breath Continue to monitor blood pressure Admission and Anticipated Discharge Date Admission Date: May 27, 2024 Subjective Patient was seen and examined at 10:55 AM. He denies chest pain or shortness of breath. She feels well overall. Review of Systems Review of Systems: All systems reviewed & are unremarkable except as noted in Subjective Physical Exam Physical Exam: General: Awake, conversant. Heart: S1, S2/regular rate and rhythm, no murmur rubs or gallops Lungs: Clear to auscultation bilaterally. Normal effort Abdomen: Soft/nontender/nondistended. No hepatosplenomegaly Extremities: No clubbing/cyanosis. No edema Behavior: Appropriate, cooperative Results & Data Results & Data Vital Signs (Past 12 Hours) Vital Signs Temp Pulse Resp BP Pulse Ox O2 Del Method 05/29/24 14:32 36.6 C 74 18 144/82 H 96 Room Air 05/29/24 07:45 Room Air 05/29/24 06:59 36.6 C 75 18 148/71 H 94 Room Air PG Care Time/CCT Total # of Minutes Spent Total Time Spent with Patient: Total time spent is greater than 50% in coordination of care (as documented) at patient's floor/unit and/or counseling patient: Coding Level of Care Code 64263 SUB INP/OBS CARE 2/35MIN Diagnoses Lumbosacral spondylosis with radiculopathy M47.27 HTN (hypertension) I10
[2024-05-29] MEDS: ACETAMINOPHEN 500 MG TAB PO PRN (15:35)
[2024-05-29 20:06] VITALS: RESP 16; TEMP 97.7
[2024-05-30 07:15] VITALS: O2SAT 92
--- NOTE | 2024-05-30 09:56 | Discharge Summary ---
Date of Service May 30, 2024 Admission HPI Per Admitting Provider This is a 69-year-old female who presents with chronic persistent back and leg pain after failing course of nonoperative care is here for surgical intervention. Principal Diagnosis Lumbar spondylosis with radiculopathy Discharge Data Allergies Allergy/AdvReac Type Severity Reaction Status Date / Time No Known Allergies Allergy Verified 05/27/24 12:31 Consultations 05/27/24 16:45 Consult Hospitalist Routine Procedures Performed Operation Date: 05/27/24 13:25 Actual Procedures p L4-S1 Decompression and Fusion with Spinal Cord Monitoring - Javier Castro DO Ordered Studies 05/27/24 13:25 FL lumbar spine 2-3V Routine Hospital Course (1) Lumbosacral spondylosis with radiculopathy: Patient underwent multilevel lumbar decompression fusion tolerated this well was taken to orthopedic for postoperative. Post ablation progressed appropriately. Back pain controlled. Leg pain improved. MINERVA drain decreasing. Extra strength testing. Subsidy discharged home. Discharge orders and instructions are on the chart for further review. Total Time Total Time Spent Total Time Spent (In Minutes): 20 minutes Discharge Plan Discharge Items Patient Disposition: Home - Self-Care Reason For Visit: Lumbar Disc Herniation with Radiculopathy, Spinal Discharge Diagnosis: Lumbar spondylosis with radiculopathy Activity: As commented below Non-emergency contact: Primary Care Provider Call non-emergency contact if: you have any medication questions Follow-up/Referrals: Eren Peters MD [Primary Care Provider] - Diet: Regular Addtl Attending Provider Instructions: ACTIVITY RECOMMENDATIONS: SELF CARE INSTRUCTIONS AFTER THORACIC/LUMBAR FUSIONS 1. You may walk to your tolerance. It is good exercise for your legs and back. Expect some back and intermittent leg aches and pains. 2. You may perform "counter-top" level activities (make a sandwich, nolan with a project, etc.). 3. No bending or lifting of more than 10 pounds or back twisting of any nature (roll like a log when turning in bed). 4. You may ride in a car for 20-30 minutes at a time. No driving until after your first visit with your doctor. 5. Frequent changes of position and restricting sitting to 30 minutes at a time will help limit the amount of back spasms and stiffness you may experience. 6. You may discontinue the use of ambulatory aids (cane, crutches, etc.) once your strength and confidence allow. 7. You may reel winder the shower and let water strike your incision when you arrive home at least once daily. Do not take a tub bath, sit in a hot tub or go into a swimming pool until after your first recheck in the office. 8. You may resume previous diet. SPECIAL CARE INSTRUCTIONS: VERY IMPORTANT TO READ AND REVIEW A. Your surgical incision has been closed with a cosmetic suture under the skin that will dissolve in about 6 weeks. In 14 days, you can use a pair of clean scissors and cut the suture that is left outside of the skin at the ends of your incision. 1. The small skin tapes can be removed 7 days after surgery if they have not fallen off by that point. 2. You may keep the wound open to air as much as possible to promote healing after post-op day number 5 unless told otherwise by your doctor. 3. If you think the wound looks like it is becoming infected (redness or worsening drainage) and/or you are experiencing fever, chill or worsening back pain and muscle spasms, contact the office so that we may evaluate you as soon as possible. B. Complications are uncommon, but please contact us if you have any signs or symptoms of: 1. wound infection (fever higher than 102.5 degrees F, redness, separation of wound, drainage, or increasing pain from the incision) 2. blood clots in legs (pain, swelling, redness and warmth in legs) 3. urinary tract infection (fever higher than 102.5 degrees F, burning upon urination or increased frequency of urination) 4. nerve problems (inability to walk on your toes or heels, numbness, loss of bowel or bladder control) 5. any other symptoms that concern you C. Please call the office at if you have any concerns or questions about your operation or recovery. D. No smoking! Smoking drastically decreases the chance of a solid fusion. E. Do not take any anti-inflammatory medications (Indocin, Advil, Motrin, Aspirin, Naprosyn, etc.) as these may inhibit the chance of a solid fusion. Tylenol is okay to take for pain. MANAGING PAIN AFTER SPINAL SURGERY 1. Narcotic medication is intended for short-term use and will be provided for surgical pain. Surgical pain usually lasts for a period of 4-6 weeks. Narcotic medication includes Percocet, Vicodin, Darvocet, Tylenol #3 or Lortab. 2. Longer-term pain is more appropriately treated with non-narcotic medication such as Tylenol ES. 3. Muscle spasm is not appropriately treated with narcotics. Muscle relaxers such as Soma, Flexeril or Skelaxin can be used along with Tylenol ES. 4. Remember that we all live with some "aches and pains". This is not unusual or uncommon after an injury or as we get older. a. Back pain is expected and may include muscle spasms for 4 to 6 weeks after surgery. The pain should gradually improve. If the pain worsens for no apparent reason, please contact the office. b. Intermittent leg pain may also be experienced and should not be concerned about unless it worsens for no apparent reason. If so, please contact the office. 5. We will provide appropriate medication within the normal guidelines of their prescribed use. We will also be very cautious and aware of potential abuse and extended duration of patients' medication needs. a. Pain medications are for your comfort and to assist with sleep and rest so that the tissue can heal. They are not provided in order to return to normal activity and should not be used through the day. To do so or worsening pain at night can result from ongoing tissue damage and development of tolerance to the prescribed medicine. 6. Please allow 2-3 days to process refills. Prescriptions will not be mailed but must be picked up at the office. FOLLOW UP VISIT: Keep your scheduled follow-up appointment. Any questions, please call the office at . Pending Studies at Discharge: No Stand-Alone Forms: [facility] Smoking Cessation Medications and DC Order Prescriptions: New tramadol 50 mg tablet 50 mg PO Q6H PRN (Reason: pain, moderate) Qty: 30 0RF oxycodone 5 mg tablet 5 mg PO Q6H PRN (Reason: pain) Qty: 30 0RF Continued bupropion HCl 150 mg tablet sustained-release 12 hr 150 mg PO BID clonidine HCl 0.1 mg tablet 0.1 mg PO PM clonazepam 0.5 mg tablet 0.5 mg PO BID PRN (Reason: Anxiety) meloxicam 7.5 mg tablet 7.5 mg PO BID trazodone 100 mg tablet 150 mg PO HS gabapentin 300 mg capsule 300 mg PO BID Rx Instructions: not on list 08/20/23 losartan 100 mg tablet 100 mg PO QAM risperidone 1 mg tablet 1 mg PO HS duloxetine 60 mg capsule,delayed release(DR/EC) 60 mg PO BID calcium carbonate-vitamin D3 [Calcium 600 + D(3)] 600 mg-10 mcg (400 unit) Tablet 1 tab PO BID docusate sodium 100 mg Capsule 100 mg PO BID tolterodine 2 mg Tablet 2 mg PO QAM cyclobenzaprine 10 mg tablet 10 mg PO BID carvedilol 12.5 mg tablet 12.5 mg PO BID donepezil 5 mg tablet 5 mg PO HS ketorolac 10 mg tablet 10 mg PO QID hydrocodone-acetaminophen 5-325 mg tablet 0.5 - 1 tab PO Q6H PRN (Reason: pain) Qty: 14 0RF Discharge Orders: Discharge Order (Routine); Ordered 05/30/24 Ordered By: Javier Castro Admission Data Admit Date/Time: 05/27/24 15:23 Attending Provider: Javier Castro Admit Provider: Javier Castro Primary Care Provider: Eren Peters Other Providers: Shannon Oropeza
[2024-05-30 10:23] VITALS: BP 161/76; PULSE 70
== END 2024-05-30 12:53 | disposition home or self-care (01) | DRG 428 ==
LOC: ASU 11:54 → 3E 15:23

== ENCOUNTER 2024-07-16 13:12 | Observation (INO) ==
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
[2024-07-16 14:22] LABS: Basophils # (auto) 0.03 K/uL (0.00-0.20); Basophils % (auto) 0.3 %; Eosinophils # (auto) 0.15 K/uL (0.00-0.50); Eosinophils % (auto) 1.6 %; Hematocrit (blood only) 35.4 % (37.0-47.0); Hemoglobin 11.6 g/dl (12.0-16.0); Immature Granulocytes # (auto) 0.03 K/uL (0.01-0.20); Immature Granulocytes % (auto) 0.3 %; Lymphocytes # (auto) 1.09 K/uL (1.20-3.40); Lymphocytes % (auto) 11.9 %; Mean Corpuscular Hemoglobin 28.3 pg (25.0-34.0); Mean Corpuscular Hgb Conc 32.8 g/dL (32.0-36.0); Mean Corpuscular Volume 86.3 fL (80.0-100.0); Mean Platelet Volume 9.8 fL (9.4-12.4); Monocytes # (auto) 0.88 K/uL (0.11-0.59); Monocytes % (auto) 9.6 %; Neutrophils # (auto) 6.97 K/uL (1.40-6.50); Neutrophils % (auto) 76.3 %; Platelet Count 269 K/uL (130-400); RDW Coefficient of Variation 12.1 % (11.5-14.5); RDW Standard Deviation 38.5 fL (36.4-46.3); White Blood Count 9.15 K/ul (4.8-10.8)
[2024-07-16 14:26] LABS: iSTAT Creatinine 1.5 mg/dl (0.6-1.3); iSTAT Hemoglobin 10.2 g/dl (12.0-16.0); iSTAT Ionized Calcium 1.22 mmol/l (1.12-1.32); iSTAT Potassium 3.6 mmol/L (3.3-5.0)
[2024-07-16 14:28] LABS: Albumin Globulin Ratio 1.7 (0.9-2); Albumin Level 4.3 gm/dl (3.4-5.0); BUN Creatinine Ratio 16.3 (10-20); Bilirubin,Total 0.9 mg/dl (0.2-1.0); Calcium 9.8 mg/dl (8.6-10.3); Globulin 2.6 gm/dl (2.5-4.0); Magnesium 2.2 mg/dl (1.7-2.4); Phosphorus 3.3 mg/dl (2.5-4.9); Potassium 3.6 mmol/L (3.5-5.1); Total Protein 6.9 gm/dl (6.0-8.3)
[2024-07-16] MEDS: SODIUM CHLORIDE 0.9% 500 ML IV ONE (14:28)
[2024-07-16 14:36] LABS: Prothrombin Time 10.9 Seconds (9.0-12.0)
[2024-07-16 14:42] LABS: Thyroid Stimulating Hormone 3.311 uIu/ml (0.300-4.500)
--- NOTE | 2024-07-16 15:02 | XRay Report ---
XR chest 1V portable CLINICAL HISTORY: weakness COMPARISON STUDY: 08/25/2023 FINDINGS: There is discoid atelectasis at the right lung base. The findings are otherwise unchanged d emonstrating no acute process. There is no airspace opacity or pleural effusion. There is no pneumoth orax. The heart and pulmonary vascularity are unremarkable. IMPRESSION: Minor discoid atelectasis right lung base; otherwise negative and unchanged. ACT 112: Negative or not required by law. Electronically signed by: Rebekah Aguilera M.D. 07/16/2024 3:00 PM
[2024-07-16] MEDS: OPTIRAY 320 125ml IV ONE (17:17)
[2024-07-16 17:27] LABS: Appearance Urine Clear (Clear); Bacteria Urine Automated None Seen (None Seen); Bilirubin Urine Negative (Negative); Blood Urine Negative (Negative); Cast Urine Automated 0-2 /lpf (0-2); Color Urine Yellow; Epithelial Cell Urine Auto 0-2 /hpf (0-2); Glucose Urine UA Negative (Negative); Ketones Urine Negative (Negative); Leukocyte Esterase Urine 2+ (Negative); Nitrite Urine Negative (Negative); Protein Urine Negative (Negative); RBC Urine Automated 0-2 /hpf (0-2); Specific Gravity Urine 1.012 (1.000-1.030); Urobilinogen Urine Negative (Negative)
--- NOTE | 2024-07-16 17:45 | CT Scan Report ---
INDICATION: Altered mental status. COMPARISON: CT 08/20/2023. TECHNIQUE: Axial CT images of the head were obtained without IV contrast. Coronal and sagittal reformations were reviewed. FINDINGS: Gutierrez-white differentiation is relatively preserved. No mass, mass effect or midline shift. Chronic ischemic white matter changes. No evidence of acute large territorial infarction or acute intracranial hemorrhage. Ventricles appear normal in size. Basal cisterns are patent. No depressed calvarial fracture. IMPRESSION: No acute intracranial process. Electronically signed by Noble Jaramillo 07-16-2024 5:45 PM
--- NOTE | 2024-07-16 17:50 | CT Scan Report ---
INDICATION: Difficulty breathing. COMPARISON: No relevant priors available TECHNIQUE: Axial CT images of the chest were obtained following IV contrast administration, PE protocol. Multiplanar reformatted images were reviewed. FINDINGS: Ascending thoracic aneurysm measuring up to 4.5 cm maximum dimension. Negative for dissection. Negative for pulmonary embolism. Trace pericardial fluid. The heart is mildly enlarged. No pericardial or pleural effusion. No pneumothorax. No focal pulmonary consolidation. Subsegmental atelectasis dependently. Degenerative changes in the spine. No acute osseous abnormality evident. Visualized upper abdominal structures appear unremarkable. IMPRESSION: 1. Negative for pulmonary embolism. 2. Ascending thoracic aneurysm measuring up to 4.5 cm maximum dimension. Electronically signed by Noble Jaramillo 07-16-2024 5:49 PM
[2024-07-16 17:57] LABS: Amphetamines+Metham, Urine Neg (Neg); Barbiturates, Urine Neg (Neg); Benzodiazepine, Urine Neg (Neg); Cocaine, Urine Neg (Neg); Fentanyl, Urine Neg (Neg); MDMA (Ecstacy), Urine Pos (Neg); Marijuana, Urine Neg (Neg); Methadone, Urine Neg (Neg); Opiate, Urine Neg (Neg); Phencyclidine, Urine Neg (Neg)
--- NOTE | 2024-07-16 18:06 | CT Scan Report ---
HISTORY: Altered mental status TECHNIQUE: CT angiography of the head and the neck was performed. Coronal and sagittal reformats were created. IV CONTRAST: 100 mL of OMNIPAQUE 300 COMPARISON: Brain CT from earlier the same day. FINDINGS: CTA HEAD: Stenotic/occlusive disease: Mild stenosis of left [employer] P1 segment Aneurysm: 3 mm laterally projecting outpouching arising from the right carotid siphon ICA (series 6, image 78). Vascular malformation: None CTA NECK: Right carotid: No hemodynamically significant stenosis. Left carotid: No hemodynamically significant stenosis. Vertebrobasilar system: No hemodynamically significant stenosis. Aortic arch and subclavian arteries: No hemodynamically significant stenosis. Nonvascular structures: Unremarkable. Stenosis ranges are derived using NASCET criteria. IMPRESSION: No large vessel occlusion or hemodynamically significant stenosis. Mild stenosis of left [employer] K[employer]PER P1 segment 3 mm aneurysm arising from the right carotid siphon ICA. Electronically signed by Isidro Miller 07-16-2024 6:06 PM
--- NOTE | 2024-07-16 18:06 | CT Scan Report ---
HISTORY: Altered mental status TECHNIQUE: CT angiography of the head and the neck was performed. Coronal and sagittal reformats were created. IV CONTRAST: 100 mL of OMNIPAQUE 300 COMPARISON: Brain CT from earlier the same day. FINDINGS: CTA HEAD: Stenotic/occlusive disease: Mild stenosis of left QUANTITATIVE EQUITY HEAD P1 segment Aneurysm: 3 mm laterally projecting outpouching arising from the right carotid siphon ICA (series 6, image 78). Vascular malformation: None CTA NECK: Right carotid: No hemodynamically significant stenosis. Left carotid: No hemodynamically significant stenosis. Vertebrobasilar system: No hemodynamically significant stenosis. Aortic arch and subclavian arteries: No hemodynamically significant stenosis. Nonvascular structures: Unremarkable. Stenosis ranges are derived using NASCET criteria. IMPRESSION: No large vessel occlusion or hemodynamically significant stenosis. Mild stenosis of left QUANTITATIVE EQUITY HEAD P1 segment 3 mm aneurysm arising from the right carotid siphon ICA. Electronically signed by Isidro Miller 07-16-2024 6:06 PM
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
[2024-07-16] MEDS ORDERED: ALUMINUM/MAGNESIUM SUSP 30 ML UDC PO PRN (22:05)
[2024-07-16] MEDS ORDERED: oxyCODONE HCL IR 5 MG TAB (IMMEDIATE RELEASE) PO PRN (22:05)
[2024-07-16] MEDS ORDERED: ACETAMINOPHEN 325 MG TAB PO PRN (22:05)
[2024-07-16] MEDS ORDERED: clonazePAM 0.5 MG TAB PO PRN (22:05)
[2024-07-16] MEDS ORDERED: traMADol HCL 50 MG TABLET PO PRN (22:05)
[2024-07-16] MEDS ORDERED: MAGNESIUM HYDROXIDE SUSP 30 ML UDC PO PRN (22:05)
[2024-07-16] MEDS ORDERED: MELATONIN 3 MG TAB PO PRN (22:05)
[2024-07-16] MEDS ORDERED: POLYETHYLENE (MIRALAX) 17 GM PACK PO PRN (22:05)
[2024-07-16] MEDS ORDERED: ONDANSETRON INJ 2 MG/ML 2 ML VIAL IV PRN (22:05)
[2024-07-16] MEDS: buPROPion SR 150 MG TABCR PO SCH (23:32)
[2024-07-16] MEDS: ASPIRIN 81 MG ECTAB PO SCH (23:33)
[2024-07-16] MEDS: traZODone HCL 50 MG TAB PO SCH (23:33)
[2024-07-16] MEDS: DULoxetine HCL 60 MG CAP PO SCH (23:33)
[2024-07-16] MEDS: CALCIUM 600MG + VIT D 400 IU TAB PO SCH (23:33)
[2024-07-16] MEDS: risperiDONE 1 MG TABLET PO SCH (23:33)
[2024-07-16] MEDS: GABAPENTIN 300 MG CAP PO SCH (23:33)
[2024-07-16] MEDS: cloNIDine HCL 0.1 MG TAB PO SCH (23:33)
[2024-07-16] MEDS: amLODIPine BESYLATE 5 MG TAB PO SCH (23:33)
[2024-07-16] MEDS: carvediloL 12.5 MG TAB PO SCH (23:33)
[2024-07-16] MEDS: MELOXICAM 7.5 MG TAB PO SCH (23:34)
[2024-07-16] MEDS: HEPARIN SOD 5,000 UNIT/0.5 ML VIAL SQ SCH (23:34)
[2024-07-16] MEDS: DOCUSATE SODIUM 100 MG CAP PO SCH (23:39)
--- NOTE | 2024-07-17 00:01 | Magnetic Resonance Report ---
Exam(s): MRI HEAD Without Contrast EXAM: MR Head Without Intravenous Contrast CLINICAL HISTORY: Reason for exam: Confusion. TECHNIQUE: Magnetic resonance images of the head/brain without intravenous contrast in multiple planes. COMPARISON: Prior head CT from July 16, 2024. FINDINGS: Brain: Moderate nonspecific white matter changes. The flow voids at the base of the brain are intact. No mass. No hemorrhage. No acute infarct. Ventricles: Moderate ventriculomegaly. Bones/joints: Unremarkable. No acute fracture. Sinuses: Chronic ethmoid sinusitis. No acute sinusitis. Mastoid air cells: Unremarkable as visualized. No mastoid effusion. Orbits: Unremarkable as visualized. IMPRESSION: No evidence of acute intracranial pathology. Electronically signed by: Janett Masterson MD 07/16/24 23:59 PM
--- NOTE | 2024-07-17 03:57 | Billing Data ---
Date of Service July 17, 2024 Coding Level of Care Code 20045 INT INP/OBS CARE
--- NOTE | 2024-07-17 06:16 | Electrocardiogram Report ---
Test Reason : Blood Pressure : */* mmHG Vent. Rate : 69 BPM Atrial Rate : 69 BPM P-R Int : 164 ms QRS Dur : 74 ms QT Int : 464 ms P-R-T Axes : 30 11 96 degrees QTcB Int : 497 ms Normal sinus rhythm Prolonged QT Abnormal ECG When compared with ECG of 14-May-2024 12:59, Nonspecific T wave abnormality no longer evident in Inferior leads Confirmed by Estevan Edwards ([id number]) on 07/17/2024 6:16:45 AM Referred By: Confirmed By: Estevan Edwards
[2024-07-17 07:27] LABS: BUN Creatinine Ratio 19.4 (10-20); Calcium 9.4 mg/dl (8.6-10.3); Creatinine Clr Calc Pharmacy 55.4 ml/min; Potassium 3.8 mmol/L (3.5-5.1)
[2024-07-17] MEDS: LOSARTAN POTASSIUM 50 MG TAB PO SCH (07:39)
[2024-07-17] MEDS: OXYBUTYNIN CHLORIDE XL 5 MG TABCR PO SCH (07:40)
--- NOTE | 2024-07-17 07:50 | Magnetic Resonance Report ---
EXAM: MR angio head wo con CLINICAL HISTORY: Confusion stroke like symptoms. TECHNIQUE: MRA of the head was performed without intravenous contrast. 3D Rnwp-kf-Kimgsr (TOF) sequences were acquired through the [place] [facility] [place]. COMPARISON: 07/16/2024 CT FINDINGS: Intracranial Arteries: Right Internal Carotid Artery (ICA): A tiny 1.8 x 1.7 mm aneurysm is suspected as an outpouch from the right ICA (cavernous segment). Left Internal Carotid Artery (ICA): The proximal segment is [normal]. The middle segment is [normal]. The distal segment is [normal]. Right Middle Cerebral Artery (MCA): The M1 segment is [normal]. The M2 segment is [normal]. Left Middle Cerebral Artery (MCA): The M1 segment is [normal]. The M2 segment is [normal]. Right Anterior Cerebral Artery (JEROME): The A1 segment is [normal]. The A2 segment is [normal]. Left Anterior Cerebral Artery (JEROME): The A1 segment is [normal]. The A2 segment is [normal]. Anterior Communicating Artery (ACoA): The ACoA is [normal]. Right Posterior Cerebral Artery (DIE GRINDER): The P1 segment is [normal]. The P2 segment is [normal]. Left Posterior Cerebral Artery (DIE GRINDER): The P1 segment is [normal]. The P2 segment is [normal]. Posterior Communicating Artery (PCoA): The PCoA is [normal]. Basilar Artery: The basilar artery is [normal]. Vertebral Arteries: The right vertebral artery is [normal]. The left vertebral artery is [normal]. IMPRESSION: 1. A tiny 1.8 x 1.7 mm aneurysm is suspected as an outpouch from the right ICA (cavernous segment) without complication. 2. No evidence of significant atherosclerotic changes, stenosis or occlusion. 3. A negative MRA does not exclude the possibility of small vessel disease or subtle vascular abnormalities. Clinical correlation and follow-up imaging may be warranted based on clinical symptoms and history. 4. No time interval changes compared to the last study. Electronically signed by Yobany Montalvo 07-17-2024 07:50 AM
--- NOTE | 2024-07-17 09:27 | XRay Report ---
XR lumbar spine 2-3V CLINICAL HISTORY: post op laminectomy and fusion COMPARISON STUDY: None pertinent FINDINGS: 4 views of the lumbar spine demonstrate an L4-5 laminectomy and an L4-S1 posterior fusion w ith pedicle screws, posterior metal bars, and intervertebral body inserts at the L4-5 and L5-S1 disc space levels. There is no evidence of hardware failure. There is satisfactory alignment. No additiona l lumbar spine lesions are identified. The pedicles and SI joints are intact. There is mild gaseous d istention of the transverse colon and splenic flexure. IMPRESSION: Status post L4-S1 laminectomy and fusion. No evidence of hardware failure or malalignmen t. ACT 112: Negative or not required by law. Electronically signed by: Rebekah Aguilera M.D. 07/17/2024 9:24 AM
--- NOTE | 2024-07-17 10:52 | Hospitalist Progress Note ---
Date of Service July 17, 2024 Assessment & Plan (1) Confusion: Plan: -neurology and ortho spine consulted- patient has recent spinal decompression -MRI brain negative -pt appears at baseline (2) Cognitive decline: (3) Ambulatory dysfunction: Plan: Pt does have housing as of today, consider placement vs home with home health/PT (4) HTN (hypertension): Plan: amlodipine, carvedilol, clonidine, losartan (5) Urinary urgency: Plan: Continue tolterodine (6) Depression with anxiety: Plan: duloxetine and Klonopin (7) Hx of heart failure: Plan: amlodipine, carvedilol, clonidine, losartan, bupropion Plan 69 yo female PMHx HTN, lumbar stenosis s/p decompression, anxiety/depression, overactive bladder, hypothyroidism, stable ascending aortic aneurysm admitted due to increased confusion and weakness. Admission and Anticipated Discharge Date Admission Date: July 16, 2024 Subjective Pt appears no longer confused, aware and answering questions appropriately. Review of Systems Review of Systems: CONST: Negative for fever, body aches and chills. HENT: Negative for neck pain/stiffness, headache, congestion, sore throat, swelling. EYES: Negative for discharge/pain or vision changes. RESP: Negative for cough/hemoptysis and shortness of breath. CV: Negative chest pain, difficulty breathing, palpitations. ABD: Negative pain, nausea, vomiting. : Negative increase frequency, dysuria, blood in urine or stool. MUSC: Negative for muscle aches, edema. SKIN: Negative rash, lesions/sores. NEURO: Negative headache, dizziness, weakness. Physical Exam Physical Exam: GENERAL APPEARANCE NAD, activity normal for age, well developed/ well nourished, no cyanosis, pallor, or diaphoresis. EYES lids/conjunctiva normal. EARS/NOSE/THROAT Mucous membranes moist, nares normal, lips/teeth normal uvula midline without oral pharyngeal erythema, exudate or swelling TMs normal bilaterally. No lymphangitis/lymphedema. HEAD/NECK normocephalic atraumatic, no facial trauma, neck is supple. RESPIRATORY respiratory effort normal, speaks in full sentences, no tripod position, no accessory muscle use. Lungs clear to auscultation without rhonchi, wheezes, rales CARDIAC Regular rate and rhythm, no edema. ABDOMINAL Soft, ND/NT. No evidence of fluid wave. No pulsatile masses on exam, rebound tenderness, Bowman sign or pain over Mcburney's point. MUSCLES/EXTREMITIES No abnormal range of motion, no swelling. SKIN Warm, pink and dry. No rashes, dermatoses, petechiae or lesions. NEUROLOGICAL Speech is clear and appropriate. Normal level of consciousness. Ga it and coordination are normal. 5/5 strength in all extremities. PSYCH Normal mood and affect. Judgement/competence is appropriate Results & Data Results & Data Vital Signs (Past 12 Hours) Vital Signs Temp Pulse Resp BP Pulse Ox O2 Del Method 07/17/24 07:40 36.5 C 76 16 123/69 90 Room Air 07/16/24 23:30 79 16 127/72 PG Care Time/CCT Total # of Minutes Spent Total Time Spent with Patient: Total time spent is greater than 50% in coordination of care (as documented) at patient's floor/unit and/or counseling patient: Coding Level of Care Code 05899 SUB INP/OBS CARE 2/35MIN Diagnoses Confusion R41.0 Cognitive decline R41.89 Ambulatory dysfunction R26.2 HTN (hypertension) I10 Urinary urgency R39.15 Depression with anxiety F41.8 Hx of heart failure Z86.79
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
[2024-07-17 19:45] VITALS: O2SAT 94
[2024-07-18 07:11] VITALS: BP 132/78; PULSE 79; RESP 16; TEMP 97.9
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
[2024-07-20 14:43] LABS: MDA negative; MDEA negative; MDMA (Ecstasy) Urine, Confirm negative
== END 2024-07-18 12:35 | disposition home or self-care (01) ==
LOC: ED 13:12 → INTOOBSV 19:25 → 3W 19:25 → SUATTDRO 19:25 → 3W 20:53

== ENCOUNTER 2024-09-10 14:55 | Observation (INO) ==
--- NOTE | 2024-09-10 16:16 | Emergency Department Note ---
Impression & Plan Confusion, Cognitive decline, Generalized weakness, Elevated troponin ED Provider Note NAME: ALEN HARDING AGE: 69 SEX: F : 1955 ARRIVES VIA: Ambulance INFORMANT: Patient ED PROVIDER(S): Sterling Suero MD CHIEF COMPLAINT: Confusion, weakness PLAN: Disposition: Admit MEDICAL DECISION MAKING: The patient is a pleasant 69-year-old woman with a past medical history of anxiety/depression, suspected vascular dementia as a cause of cognitive impairment, lumbar stenosis status post decompression, hypertension who presents to the emergency department via EMS and accompanied by her son who is her caregiver for evaluation of worsening confusion from her baseline as well as generalized weakness where patient reports he has had to hold her up to make transfers which is not usual for her. They report they are awaiting a neurology appointment after her recent admission to this facility in July for follow-up. They deny fevers, cough, congestion, chest pain, shortness of breath, abdominal pain. Denies urinary symptoms or loss of bowel control. On evaluation the patient is no distress, afebrile with blood pressure 140s/80s and vital signs otherwise stable. She appears clinically dry. At the time my assessment patient answers questions appropriately including her birthday, current year, location and situation. Patient's son reports that upon arriving to the emergency department the patient did not recall any of these details. She exhibits generalized weakness all extremities without focal extremity weakness. EKG without overt acute ischemia. CXR negative for acute cardiopulmonary process per my personal preliminary review/interpretation. WBC and platelets within normal limits. H/H similar to prior. Chemistry without metabolic acidosis. Initial troponin 97, nonspecific and similar to prior range of values. Repeat troponin downtrending to 74. UA without evidence of infection. CT of the head and CT of the head and neck were performed were negative for ICH, ischemia or severe narrowing occlusion of large vessels. The patient was treated with IV fluid hydration. Given the patient's progressive cognitive decline and generalized weakness the patient and her son agree with plan for admission for further management and possible placement. Case was discussed with Dr. Guillen, [facility] hospitalist, who will evaluate the patient for admission. Triage Nursing notes reviewed and agree them. Prior/external medical records reviewed Vital Signs: reviewed Differential diagnosis: Infection, dehydration, metabolic abnormality, hypo/hyperglycemia, electrolyte disturbance, anemia, hypoxia, cardiac sources, intracerebral event, toxicologic, neurologic, as well as other pathologies. ER treatment provided: See below. Diagnostics interpreted by me: ECG: Normal sinus rhythm, no ectopy, 67 bpm, ST and T wave abnormality, no overt ST elevation or depression, QTc 509, QRS 88. Cardiac Monitoring: An order for continuous cardiac monitoring was placed and demonstrated NSR, 67 bpm, no ectopy. Laboratory studies: See below Imaging studies: See below Consultation(s): Dr. Guillen, [facility] hospitalist. HPI: Per MDM. ROS: See above HPI for pertinent positives & negatives. A total of 10 systems reviewed and were otherwise negative. VITALS:See Below PHYSICAL EXAMINATION: GENERAL: Awake, alert, in no distress HENT: Normocephalic, atraumatic. Oropharynx with dry mucous membranes and otherwise unremarkable. EYES: Normal conjunctiva. Sclera non-icteric. EOMI. No nystamgus. PEARRL. NECK: Supple. No nuchal rigidity. FROM. No JVD. RESPIRATORY: Clear to auscultation. CARDIAC: Regular rate, normal rhythm. Extremities warm and well perfused. Pulses equal. ABDOMEN: Soft, non-distended. No tenderness to palpation. No rebound or guarding. No masses. MUSCULOSKELETAL: Chest examination reveals no tenderness. The back is symmetrical on inspection without obvious abnormality. There is no CVA tenderness to palpation. No joint edema. LOWER EXTREMITIES: Calves are equal size bilaterally and non-tender. No edema. No discoloration. NEURO: Cranial nerves II-XII grossly intact. Generalized weakness with 4+/5 strength and SILT x 4 extremities. Cerebellar function intact including [id number], alternating palms. SKIN: No rash or jaundice noted. Sterling Suero MD Past Med/Surg History Problem List (Updated 09/10/24 @ 20:50 by Sterling Suero MD) Elevated troponin (Acute) Generalized weakness (Acute) Cognitive decline (Acute) Confusion (Acute) Medical History Mild cognitive impairment Ambulatory dysfunction Lumbosacral spondylosis with radiculopathy HTN (hypertension) Carotid aneurysm, right Ascending aortic aneurysm GERD (gastroesophageal reflux disease) controlled, stable per pt Suspected sleep apnea per son-no previous sleep study Pulmonary hypertension RVSP 40-50 mmHg 08/2023 echo during hospitalization at [facility] in setting of acute exacerbation of heart failure, acute renal failure, UTI Hx of hydronephrosis (08/2023) Chronic back pain Memory changes improving with pain reduction per patient/son--son Leobardo is patient's caregiver Sciatica Depression with anxiety Urinary urgency Hx of renal failure (08/2023) per son, recently had renal scan Hx of heart failure EF 55-60% HTN (hypertension) controlled, stable per pt History of nephrolithiasis (08/2023) inpt. at [facility] Surgical History Hx of colonoscopy S/P cystoscopy with ureteral stent placement (08/21/23) History of lumbar surgery (2009) L4-L5 Social History Smoking Status: Former smoker Tobacco Type: Cigarettes Second Hand Exposure: No; Do You Dip or Chew Tobacco: No; Hx Alcohol Use: No Hx Substance Use: No Preferred Language: Belgian Communication Ability: Effective Business Data Analyst Required: No Beliefs That Will Affect Care: None Current Living Situation: Family Current Living Situation Comment: son leobardo Feels Safe at Home: Yes Assistive Devices: Walker Allergies Allergies Allergy/AdvReac Type Severity Reaction Status Date / Time No Known Allergies Allergy Verified 09/10/24 17:10 Home Meds Home Medications Medication Instructions Recorded Confirmed bupropion HCl 150 mg tablet,12 hr 150 mg PO BID 08/05/23 09/10/24 sustained-release clonazepam 0.5 mg tablet 0.5 mg PO BID PRN Anxiety 08/05/23 09/10/24 clonidine HCl 0.1 mg tablet 0.1 mg PO PM 08/05/23 09/10/24 duloxetine 60 mg capsule,delayed 60 mg PO BID 08/05/23 09/10/24 release gabapentin 300 mg capsule 300 mg PO BID 08/05/23 09/10/24 losartan 100 mg tablet 100 mg PO QAM 08/05/23 09/10/24 risperidone 1 mg tablet 1 mg PO HS 08/05/23 09/10/24 trazodone 100 mg tablet 150 mg PO HS 08/05/23 09/10/24 docusate sodium 100 mg capsule 100 mg PO BID 08/20/23 09/10/24 tolterodine 2 mg tablet 2 mg PO QAM 04/22/24 09/10/24 carvedilol 12.5 mg tablet 12.5 mg PO BID 05/14/24 09/10/24 acetaminophen 500 mg tablet 500 - 1,000 mg PO TID PRN Pain 07/16/24 09/10/24 (Tylenol Extra Strength) donepezil 10 mg tablet 10 mg PO HS 09/10/24 09/10/24 famotidine 40 mg tablet 40 mg PO DAILYBB 09/10/24 09/10/24 hydrochlorothiazide 50 mg tablet 50 mg PO QAM 09/10/24 09/10/24 Previous Rx's Medication Instructions Recorded aspirin 81 mg tablet,delayed 81 mg PO DAILY #30 tabs 07/18/24 release Results & Data (ED) Vital Signs Vital Signs - 24 hr 09/10/24 14:46 09/10/24 16:13 09/10/24 19:11 Temperature 36.4 C L Temperature Source Axillary Pulse Rate 68 67 Pulse Rate [Apical] 62 Pulse Rhythm Regular Pulse Rhythm [Apical] Regular Pulse Strength Normal Pulse Strength [Apical] Normal Respiratory Rate 17 16 Respiratory Effort / Characteristics Non-Labored Non-Labored Respiratory Depth Normal Normal Respiratory Pattern Regular Regular Blood Pressure 143/81 H Blood Pressure [Right Arm] 174/87 H Blood Pressure Mean 101 Blood Pressure Mean [Right Arm] 116 Blood Pressure Position Lying Blood Pressure Position [Right Arm] Lying Pulse Oximetry 94 95 Oxygen Delivery Method Room Air Room Air Sepsis Recent Fever Within 48 Hours No Sepsis New/Unexplained Change in Mental Status N/A Sepsis Action Taken by Nursing No Action Required 09/10/24 19:38 09/10/24 20:26 Temperature Temperature Source Pulse Rate 63 Pulse Rate [Apical] Pulse Rhythm Pulse Rhythm [Apical] Pulse Strength Pulse Strength [Apical] Respiratory Rate Respiratory Effort / Characteristics Respiratory Depth Respiratory Pattern Blood Pressure Blood Pressure [Right Arm] Blood Pressure Mean Blood Pressure Mean [Right Arm] Blood Pressure Position Blood Pressure Position [Right Arm] Pulse Oximetry 96 Oxygen Delivery Method Room Air Sepsis Recent Fever Within 48 Hours Sepsis New/Unexplained Change in Mental Status Sepsis Action Taken by Nursing Laboratory Data Attestation: I reviewed the patient's lab results. 09/10/24 15:41 09/10/24 15:41 Lab Results 09/10/24 09/10/24 09/10/24 Range/Units 15:41 16:54 18:09 WBC 5.09 (4.8-10.8) K/ul RBC 4.29 (4.20-5.40) M/uL Hgb 11.7 L (12.0-16.0) g/dl Hct 34.7 L (37.0-47.0) % MCV 80.9 (80.0-100.0) fL MCH 27.3 (25.0-34.0) pg MCHC 33.7 (32.0-36.0) g/dL RDW Std Deviation 34.9 L (36.4-46.3) fL RDW Coeff of Vamsi 11.9 (11.5-14.5) % Plt Count 261 (130-400) K/uL MPV 9.9 (9.4-12.4) fL Immature Gran % (Auto) 0.4 % Neut % (Auto) 65.4 % Lymph % (Auto) 18.7 % [place] % (Auto) 10.4 % Eos % (Auto) 4.5 % Baso % (Auto) 0.6 % Neut # (Auto) 3.33 (1.40-6.50) K/uL Lymph # (Auto) 0.95 L (1.20-3.40) K/uL [place] # (Auto) 0.53 (0.11-0.59) K/uL Eos # (Auto) 0.23 (0.00-0.50) K/uL Baso # (Auto) 0.03 (0.00-0.20) K/uL Immature Gran # (Auto) 0.02 (0.01-0.20) K/uL PT 10.7 (9.0-12.0) Seconds INR 1.0 (0.9-1.1) APTT 26 (21-31) Seconds PTT Ratio 1.0 Sodium 137 (136-145) mmol/L Potassium 3.2 L (3.5-5.1) mmol/L Chloride 98 (98-107) mmol/L Carbon Dioxide 33 H (21-32) mmol/L Anion Gap 6 (3-11) BUN 13 (6-23) mg/dl Creatinine 0.90 (0.6-1.2) mg/dl Est Cr Clr Drug Dosing 61.6 ml/min eGFR 69.64 BUN/Creatinine Ratio 14.4 (10-20) Glucose 104 H (70-99(Fasting)) mg/dl POC Glucose 112 H (70-99) mg/dl Calcium 9.8 (8.6-10.3) mg/dl Magnesium 1.9 (1.7-2.4) mg/dl Total Bilirubin 0.4 (0.2-1.0) mg/dl AST 10 L (13-39) U/L ALT 6 L (7-52) U/L Alkaline Phosphatase 86 (34-104) U/L Troponin I High Sens 97.8 H* 74.3 H* D (0-14) pg/ml Total Protein 6.8 (6.0-8.3) gm/dl Albumin 4.2 (3.4-5.0) gm/dl Globulin 2.6 (2.5-4.0) gm/dl Albumin/Globulin Ratio 1.6 (0.9-2) Urine Color Urine Appearance (Clear) Urine pH (4.5-7.5) Ur Specific [place] (1.000-1.030) Urine Protein (Negative) Urine Glucose (UA) (Negative) Urine Ketones (Negative) Urine Blood (Negative) Urine Nitrite (Negative) Urine Bilirubin (Negative) Urine Urobilinogen (Negative) Ur Leukocyte Esterase (Negative) Urine WBC (Auto) (0-5) /hpf Urine RBC (Auto) (0-2) /hpf U Hyaline Cast (Auto) (0-2) /lpf U Epithel Cells (Auto) (0-2) /hpf Urine Bacteria (Auto) (None Seen) 09/10/24 Range/Units 19:07 WBC (4.8-10.8) K/ul RBC (4.20-5.40) M/uL Hgb (12.0-16.0) g/dl Hct (37.0-47.0) % MCV (80.0-100.0) fL MCH (25.0-34.0) pg MCHC (32.0-36.0) g/dL RDW Std Deviation (36.4-46.3) fL RDW Coeff of Vamsi (11.5-14.5) % Plt Count (130-400) K/uL MPV (9.4-12.4) fL Immature Gran % (Auto) % Neut % (Auto) % Lymph % (Auto) % [place] % (Auto) % Eos % (Auto) % Baso % (Auto) % Neut # (Auto) (1.40-6.50) K/uL Lymph # (Auto) (1.20-3.40) K/uL [place] # (Auto) (0.11-0.59) K/uL Eos # (Auto) (0.00-0.50) K/uL Baso # (Auto) (0.00-0.20) K/uL Immature Gran # (Auto) (0.01-0.20) K/uL PT (9.0-12.0) Seconds INR (0.9-1.1) APTT (21-31) Seconds PTT Ratio Sodium (136-145) mmol/L Potassium (3.5-5.1) mmol/L Chloride (98-107) mmol/L Carbon Dioxide (21-32) mmol/L Anion Gap (3-11) BUN (6-23) mg/dl Creatinine (0.6-1.2) mg/dl Est Cr Clr Drug Dosing ml/min eGFR BUN/Creatinine Ratio (10-20) Glucose (70-99(Fasting)) mg/dl POC Glucose (70-99) mg/dl Calcium (8.6-10.3) mg/dl Magnesium (1.7-2.4) mg/dl Total Bilirubin (0.2-1.0) mg/dl AST (13-39) U/L ALT (7-52) U/L Alkaline Phosphatase (34-104) U/L Troponin I High Sens (0-14) pg/ml Total Protein (6.0-8.3) gm/dl Albumin (3.4-5.0) gm/dl Globulin (2.5-4.0) gm/dl Albumin/Globulin Ratio (0.9-2) Urine Color Yellow Urine Appearance Clear (Clear) Urine pH 8.0 H (4.5-7.5) Ur Specific [place] 1.022 (1.000-1.030) Urine Protein Negative (Negative) Urine Glucose (UA) Negative (Negative) Urine Ketones Negative (Negative) Urine Blood Negative (Negative) Urine Nitrite Negative (Negative) Urine Bilirubin Negative (Negative) Urine Urobilinogen Negative (Negative) Ur Leukocyte Esterase 1+ H (Negative) Urine WBC (Auto) 0-5 (0-5) /hpf Urine RBC (Auto) 3-5 H (0-2) /hpf U Hyaline Cast (Auto) 0-2 (0-2) /lpf U Epithel Cells (Auto) 0-2 (0-2) /hpf Urine Bacteria (Auto) None Seen (None Seen) Administered Medications Discontinued Medications Sodium Chloride (Nss) 500 mls @ 999 mls/hr IV .Q31M ONE Stop: 09/10/24 16:48 Last Infusion: 09/10/24 19:09 Dose: Infused Documented By: Admin: 09/10/24 18:10 Dose: 999 mls/hr Documented By: MAK Ioversol (Optiray 320 125ml) 118 ml IV ONCE ONE Stop: 09/10/24 17:52 Last Admin: 09/10/24 17:52 Dose: 118 ml Documented By: [facility] Imaging Data Radiologist's Impression: Chest X-Ray 09/10/24 16:18 EXAM: X-ray chest one-view portable CLINICAL HISTORY: Neurodeficit, stroke suspected PRIORS: 05/02/2024, 06/03/2024 TECHNIQUE: Frontal view chest FINDINGS: The chest is well-expanded. No airspace consolidation, effusion or congestive changes. Heart size is normal. No pneumothorax. Trachea is patent. Osseous structures demonstrate no acute abnormality. No radiopaque foreign body. IMPRESSION: No plain film evidence of an acute cardiopulmonary process. Electronically signed by Melanie Leblanc 09-10-2024 4:[address] 09/10/24 16:18 EXAMINATION: Head CT without CLINICAL HISTORY: Neurodeficit, acute stroke suspected PRIORS: 07/16/2024 TECHNIQUE: Contiguous axial images were obtained through the head without the use of intravenous contrast. Sagittal and coronal reformations are supplied. FINDINGS: Mild parenchymal volume loss noted. Moderate periventricular lucency present in the white matter representing small vessel occlusive disease. Gutierrez-white differentiation is preserved. No edema or midline shift. No intra-axial or extra-axial hemorrhage. Ventricles are normal in size and configuration. Brainstem and cerebellum have a normal appearance. Calvarium unremarkable. Paranasal sinuses and mastoid air cells are well-pneumatized. Globes are intact. No retrobulbar abnormality. IMPRESSION: No CT evidence of an acute intracranial abnormality. Electronically signed by Melanie Leblanc 09-10-2024 6:23 PM Head CTA 09/10/24 16:18 EXAM: CTA head with CLINICAL HISTORY: Neurodeficit TECHNIQUE: Contiguous CTA axial images were obtained through the head after the administration of intravenous contrast. Sagittal and coronal reformations are supplied. PRIORS: None FINDINGS: Dental amalgam creates beam hardening artifact diminishing image quality. The vertebral arteries form the basilar artery at the skull base. [place] is patent. No thrombus or hemodynamically significant stenosis. No aneurysmal dilatation or romero aneurysm. No enhancing mass in the brain. IMPRESSION: No CTA evidence of an acute vascular abnormality. Electronically signed by Melanie Leblanc 09-10-2024 6:30 PM Neck CTA 09/10/24 16:18 EXAM: CT angio neck with con CLINICAL HISTORY: Neurodeficit TECHNIQUE: Contiguous CTA axial images were obtained through the neck with the administration of intravenous contrast. Sagittal and coronal reformations are supplied. MIPS are supplied. COMPARISON: None FINDINGS: Dental amalgam creates significant beam hardening artifact diminishing image quality. A left-sided aortic arch is noted. Very mild calcified atherosclerotic plaque present in the carotid bulbs with no hemodynamically significant stenosis. The internal carotid arteries are normal in appearance and course, entering the petrous portion of the skull base normally. The vertebral arteries are codominant with no atherosclerotic disease or stenosis. Both formed the basilar artery at the skull base. No enhancing mass in the visualized brain. Paranasal sinuses and mastoid air cells are well pneumatized. IMPRESSION: No CTA evidence of an acute vascular abnormality Electronically signed by Melanie Leblanc 09-10-2024 6:30 PM Discharge Plan Visit Data Chief Complaint: Confusion Stated Complaint: DIFF. AMBULATING, CONFUSION ED Provider: Sterling Suero Discharge Problem: Confusion, Cognitive decline, Generalized weakness, Elevated troponin Patient Disposition: Admitted As Inpatient Condition: Fair Forms Stand Alone Forms: My [facility] [place] [employer] Prescriptions Prescriptions: No Action bupropion HCl 150 mg tablet sustained-release 12 hr 150 mg PO BID clonidine HCl 0.1 mg tablet 0.1 mg PO PM clonazepam 0.5 mg tablet 0.5 mg PO BID PRN (Reason: Anxiety) trazodone 100 mg tablet 150 mg PO HS gabapentin 300 mg capsule 300 mg PO BID losartan 100 mg tablet 100 mg PO QAM risperidone 1 mg tablet 1 mg PO HS duloxetine 60 mg capsule,delayed release(DR/EC) 60 mg PO BID docusate sodium 100 mg Capsule 100 mg PO BID tolterodine 2 mg Tablet 2 mg PO QAM carvedilol 12.5 mg tablet 12.5 mg PO BID hydrochlorothiazide 50 mg tablet 50 mg PO QAM donepezil 10 mg tablet 10 mg PO HS famotidine 40 mg tablet 40 mg PO DAILYBB acetaminophen [Tylenol Extra Strength] 500 mg Tablet 500 - 1,000 mg PO TID PRN (Reason: Pain) aspirin 81 mg Tablet,Delayed Release (Dr/Ec) 81 mg PO DAILY Qty: 30 0RF Referrals Referrals: Eren Peters MD [Primary Care Provider] -
[2024-09-10 16:41] LABS: Basophils # (auto) 0.03 K/uL (0.00-0.20); Basophils % (auto) 0.6 %; Eosinophils # (auto) 0.23 K/uL (0.00-0.50); Eosinophils % (auto) 4.5 %; Hematocrit (blood only) 34.7 % (37.0-47.0); Hemoglobin 11.7 g/dl (12.0-16.0); Immature Granulocytes # (auto) 0.02 K/uL (0.01-0.20); Immature Granulocytes % (auto) 0.4 %; Lymphocytes # (auto) 0.95 K/uL (1.20-3.40); Lymphocytes % (auto) 18.7 %; Mean Corpuscular Hemoglobin 27.3 pg (25.0-34.0); Mean Corpuscular Hgb Conc 33.7 g/dL (32.0-36.0); Mean Corpuscular Volume 80.9 fL (80.0-100.0); Mean Platelet Volume 9.9 fL (9.4-12.4); Monocytes # (auto) 0.53 K/uL (0.11-0.59); Monocytes % (auto) 10.4 %; Neutrophils # (auto) 3.33 K/uL (1.40-6.50); Neutrophils % (auto) 65.4 %; Platelet Count 261 K/uL (130-400); RDW Coefficient of Variation 11.9 % (11.5-14.5); RDW Standard Deviation 34.9 fL (36.4-46.3); Red Blood Count 4.29 M/uL (4.20-5.40); White Blood Count 5.09 K/ul (4.8-10.8)
--- NOTE | 2024-09-10 16:52 | XRay Report ---
EXAM: X-ray chest one-view portable CLINICAL HISTORY: Neurodeficit, stroke suspected PRIORS: 05/02/2024, 06/03/2024 TECHNIQUE: Frontal view chest FINDINGS: The chest is well-expanded. No airspace consolidation, effusion or congestive changes. Heart size is normal. No pneumothorax. Trachea is patent. Osseous structures demonstrate no acute abnormality. No radiopaque foreign body. IMPRESSION: No plain film evidence of an acute cardiopulmonary process. Electronically signed by Melanie Leblanc 09-10-2024 4:49 PM
[2024-09-10 17:01] LABS: Albumin Globulin Ratio 1.6 (0.9-2); Albumin Level 4.2 gm/dl (3.4-5.0); BUN Creatinine Ratio 14.4 (10-20); Bilirubin,Total 0.4 mg/dl (0.2-1.0); Calcium 9.8 mg/dl (8.6-10.3); Creatinine Clr Calc Pharmacy 61.6 ml/min; Globulin 2.6 gm/dl (2.5-4.0); Magnesium 1.9 mg/dl (1.7-2.4); Potassium 3.2 mmol/L (3.5-5.1); Total Protein 6.8 gm/dl (6.0-8.3)
[2024-09-10 17:14] LABS: Partial Thromboplastin Time 26 Seconds (21-31); Prothrombin Time 10.7 Seconds (9.0-12.0)
[2024-09-10 17:20] LABS: Troponin I High Sensitivity 97.8 pg/ml (0-14)
[2024-09-10] MEDS: OPTIRAY 320 125ml IV ONE (17:52)
[2024-09-10] MEDS: SODIUM CHLORIDE 0.9% 500 ML IV ONE (18:10)
--- NOTE | 2024-09-10 18:24 | CT Scan Report ---
EXAMINATION: Head CT without CLINICAL HISTORY: Neurodeficit, acute stroke suspected PRIORS: 07/16/2024 TECHNIQUE: Contiguous axial images were obtained through the head without the use of intravenous contrast. Sagittal and coronal reformations are supplied. FINDINGS: Mild parenchymal volume loss noted. Moderate periventricular lucency present in the white matter representing small vessel occlusive disease. Gutierrez-white differentiation is preserved. No edema or midline shift. No intra-axial or extra-axial hemorrhage. Ventricles are normal in size and configuration. Brainstem and cerebellum have a normal appearance. Calvarium unremarkable. Paranasal sinuses and mastoid air cells are well-pneumatized. Globes are intact. No retrobulbar abnormality. IMPRESSION: No CT evidence of an acute intracranial abnormality. Electronically signed by Melanie Leblanc 09-10-2024 6:23 PM
--- NOTE | 2024-09-10 18:31 | CT Scan Report ---
EXAM: CT angio neck with con CLINICAL HISTORY: Neurodeficit TECHNIQUE: Contiguous CTA axial images were obtained through the neck with the administration of intravenous contrast. Sagittal and coronal reformations are supplied. MIPS are supplied. COMPARISON: None FINDINGS: Dental amalgam creates significant beam hardening artifact diminishing image quality. A left-sided aortic arch is noted. Very mild calcified atherosclerotic plaque present in the carotid bulbs with no hemodynamically significant stenosis. The internal carotid arteries are normal in appearance and course, entering the petrous portion of the skull base normally. The vertebral arteries are codominant with no atherosclerotic disease or stenosis. Both formed the basilar artery at the skull base. No enhancing mass in the visualized brain. Paranasal sinuses and mastoid air cells are well pneumatized. IMPRESSION: No CTA evidence of an acute vascular abnormality Electronically signed by Melanie Leblanc 09-10-2024 6:30 PM
--- NOTE | 2024-09-10 18:31 | CT Scan Report ---
EXAM: CTA head with CLINICAL HISTORY: Neurodeficit TECHNIQUE: Contiguous CTA axial images were obtained through the head after the administration of intravenous contrast. Sagittal and coronal reformations are supplied. PRIORS: None FINDINGS: Dental amalgam creates beam hardening artifact diminishing image quality. The vertebral arteries form the basilar artery at the skull base. [place] is patent. No thrombus or hemodynamically significant stenosis. No aneurysmal dilatation or romero aneurysm. No enhancing mass in the brain. IMPRESSION: No CTA evidence of an acute vascular abnormality. Electronically signed by Melanie Leblanc 09-10-2024 6:30 PM
[2024-09-10 19:39] LABS: Appearance Urine Clear (Clear); Bacteria Urine Automated None Seen (None Seen); Bilirubin Urine Negative (Negative); Blood Urine Negative (Negative); Cast Urine Automated 0-2 /lpf (0-2); Color Urine Yellow; Epithelial Cell Urine Auto 0-2 /hpf (0-2); Glucose Urine UA Negative (Negative); Ketones Urine Negative (Negative); Leukocyte Esterase Urine 1+ (Negative); Nitrite Urine Negative (Negative); Protein Urine Negative (Negative); Specific Gravity Urine 1.022 (1.000-1.030); Urobilinogen Urine Negative (Negative); WBC Urine Automated 0-5 /hpf (0-5)
--- NOTE | 2024-09-10 19:39 | History & Physical Report ---
Date of Service September 10, 2024 Assessment & Plan (1) Cognitive decline: (2) Generalized weakness: (3) HTN (hypertension): (4) GERD (gastroesophageal reflux disease): Plan 69-year-old female presenting with proxy 1-1/2 to 2 months of progressive episodic weakness, ambulatory dysfunction and cognitive decline. Workup thus far largely unremarkable including normal renal function, normal LFTs, no evidence of infection. Imaging including CT of the head, CTA head and neck are unremarkable for acute process. Concern for progression of dementia? #Cognitive declinepatient able to answer questions appropriately during my interview. Son is at bedside and reports she has episodes where she does not know where she is. Thus far, no reversible organic causes been identified. Admit to medical Check TSH Check BNP Frequent orientation Patient is scheduled to see [facility] on October 01, 2024. Son is requesting that patient be seen by neurology while inpatient. Day team can reach out to neurology to see if they can get an earlier appointment versus inpatient consultation Continue Aricept 10 mg p.o. nightly #Generalized weaknesspatient reports episodes where her legs feel weak bilaterally. No weakness appreciated on physical exam. PT/OT If persistent, would consider additional imaging, MRI lumbar spine #Hypertensionblood pressure Continue losartan 100 mg p.o. every morning Continue hydrochlorothiazide 50 mg p.o. every morning Continue clonidine 0.1 mg p.o. every afternoon Continue carvedilol 12.5 mg p.o. twice daily Continue to monitor #Anxiety/mental health Continue Wellbutrin 150 mg p.o. twice daily Continue clonazepam 0.5 mg p.o. twice daily as needed anxietyconsider decreasing or discontinuing this medication given report of ambulatory dysfunction, leg weakness and episodes of confusion. Continue Cymbalta 60 mg p.o. twice daily Continue Risperdal 1 mg p.o. nightly Continue trazodone 150 mg p.o. nightly #GERDstable Continue Pepcid 40 mg p.o. daily #HypokalemiaK = 3.2 Potassium 60 mEq p.o. ordered Repeat chemistry in the morning History of Present Illness Chief Complaint: Worsening confusion and weakness Primary Care Provider: Eren Peters MD Roma Thomas Is a 69-year-old female with history of hypertension, GERD, cognitive impairment likely secondary to vascular dementia presenting with progressively worsening confusion, episodes of bilateral lower extremity weakness and ambulatory dysfunction. Patient had spinal fusion performed on May 27. Son reports that since then patient has had intermittent episodes of ambulatory dysfunction, inability to walk due to bilateral lower extremity weakness on occasion and legs giving out. He also notes progressive mental decline and increased confusion. Patient has episodes where she does not know where she is. Additionally, the son notes shaking and tremor of her hands as well as shaking of her legs when she tries to walk. She has intermittent lower extremity edema as well as orthopnea. Recent medication changes include discontinuing amlodipine and starting HCTZ for blood pressure management as well as management of bilateral lower extremity edema. No additional complaints. She denies fever, chills, chest pain, palpitations, urinary complaints, nausea, vomiting, diarrhea. Her appetite is good. In the emergency room patient is afebrile, hemodynamically stable and nontoxic in appearance ER course: Normal saline x 500 mL Allergies Allergy/AdvReac Type Severity Reaction Status Date / Time No Known Allergies Allergy Verified 09/10/24 17:10 Home Medications Medication Instructions Recorded Confirmed Type bupropion HCl 150 mg tablet,12 hr 150 mg PO BID 08/05/23 09/10/24 History sustained-release clonazepam 0.5 mg tablet 0.5 mg PO BID PRN Anxiety 08/05/23 09/10/24 History clonidine HCl 0.1 mg tablet 0.1 mg PO PM 08/05/23 09/10/24 History duloxetine 60 mg capsule,delayed 60 mg PO BID 08/05/23 09/10/24 History release gabapentin 300 mg capsule 300 mg PO BID 08/05/23 09/10/24 History losartan 100 mg tablet 100 mg PO QAM 08/05/23 09/10/24 History risperidone 1 mg tablet 1 mg PO HS 08/05/23 09/10/24 History trazodone 100 mg tablet 150 mg PO HS 08/05/23 09/10/24 History docusate sodium 100 mg capsule 100 mg PO BID 08/20/23 09/10/24 History tolterodine 2 mg tablet 2 mg PO QAM 04/22/24 09/10/24 History carvedilol 12.5 mg tablet 12.5 mg PO BID 05/14/24 09/10/24 History acetaminophen 500 mg tablet 500 - 1,000 mg PO TID PRN Pain 07/16/24 09/10/24 History (Tylenol Extra Strength) aspirin 81 mg tablet,delayed 81 mg PO DAILY #30 tabs 07/18/24 09/10/24 Rx release donepezil 10 mg tablet 10 mg PO HS 09/10/24 09/10/24 History famotidine 40 mg tablet 40 mg PO DAILYBB 09/10/24 09/10/24 History hydrochlorothiazide 50 mg tablet 50 mg PO QAM 09/10/24 09/10/24 History Past Med/Surg History Problem List Elevated troponin (Acute) Generalized weakness (Acute) Cognitive decline (Acute) Confusion (Acute) Medical History Mild cognitive impairment Ambulatory dysfunction Lumbosacral spondylosis with radiculopathy HTN (hypertension) Carotid aneurysm, right Ascending aortic aneurysm GERD (gastroesophageal reflux disease) controlled, stable per pt Suspected sleep apnea per son-no previous sleep study Pulmonary hypertension RVSP 40-50 mmHg 08/2023 echo during hospitalization at [facility] in setting of acute exacerbation of heart failure, acute renal failure, UTI Hx of hydronephrosis (08/2023) Chronic back pain Memory changes improving with pain reduction per patient/son--son Leobardo is patient's caregiver Sciatica Depression with anxiety Urinary urgency Hx of renal failure (08/2023) per son, recently had renal scan Hx of heart failure EF 55-60% HTN (hypertension) controlled, stable per pt History of nephrolithiasis (08/2023) [facility] Surgical History Hx of colonoscopy S/P cystoscopy with ureteral stent placement (08/21/23) History of lumbar surgery (2009) L4-L5 Social History Smoking Status: Former smoker Tobacco Type: Cigarettes Second Hand Exposure: No; Do You Dip or Chew Tobacco: No; Hx Alcohol Use: No Hx Substance Use: No Preferred Language: Armenian Communication Ability: Effective Tissue Technician Required: No Beliefs That Will Affect Care: None Current Living Situation: Family Current Living Situation Comment: son leobardo Feels Safe at Home: Yes Assistive Devices: Walker Review of Systems Review of Systems: All systems reviewed & are unremarkable except as noted in HPI & below Physical Exam Physical Exam: General: patient resting comfortably, NAD, non-toxic in appearance, AA&O x 4 Skin: warm, dry, intact, no rashes or lesions HEENT: NC/AT, PERRL, EOMI, anicteric sclera, conjunctiva without injection, external ear normal to inspection and nontender, nares patent, moist mucus membranes, dentition intact, no oropharyngeal lesions, neck supple, trachea midline, no LAD, no thyromegaly, no JVD Heart: +S1/S2, regular, no m/r/g Lungs: equal air entry bilaterally, no rales/rhonchi/wheezes Abd: +BS, soft, NT/ND, no masses/organomegaly/ascites Ext: warm, 2+ pulses in UE/LE bilaterally, no clubbing/cyanosis or edema Neuro: nonfocal, patient AA&O x 4, speech intact, no facial droop, moving all extremities on command with equal strength 5/5 Results & Data Results & Data Vital Signs (Past 12 Hours) Vital Signs Temp Pulse Pulse Resp BP BP Pulse Ox 09/10/24 19:38 96 09/10/24 19:11 62 16 174/87 H 95 09/10/24 16:13 67 09/10/24 14:46 36.4 C L 68 17 143/81 H 94 O2 Del Method 09/10/24 19:38 Room Air 09/10/24 19:11 Room Air 09/10/24 16:13 09/10/24 14:46 Room Air Laboratory Results Laboratory Results WBC 5.09 K/ul (4.8-10.8) 09/10/24 15:41 RBC 4.29 M/uL (4.20-5.40) 09/10/24 15:41 Hgb 11.7 g/dl (12.0-16.0) L 09/10/24 15:41 Hct 34.7 % (37.0-47.0) L 09/10/24 15:41 MCV 80.9 fL (80.0-100.0) 09/10/24 15:41 MCH 27.3 pg (25.0-34.0) 09/10/24 15:41 MCHC 33.7 g/dL (32.0-36.0) 09/10/24 15:41 RDW Std Deviation 34.9 fL (36.4-46.3) L 09/10/24 15:41 RDW Coeff of Vamsi 11.9 % (11.5-14.5) 09/10/24 15:41 Plt Count 261 K/uL (130-400) 09/10/24 15:41 MPV 9.9 fL (9.4-12.4) 09/10/24 15:41 Immature Gran % (Auto) 0.4 % 09/10/24 15:41 Neut % (Auto) 65.4 % 09/10/24 15:41 Lymph % (Auto) 18.7 % 09/10/24 15:41 [place] % (Auto) 10.4 % 09/10/24 15:41 Eos % (Auto) 4.5 % 09/10/24 15:41 Baso % (Auto) 0.6 % 09/10/24 15:41 Neut # (Auto) 3.33 K/uL (1.40-6.50) 09/10/24 15:41 Lymph # (Auto) 0.95 K/uL (1.20-3.40) L 09/10/24 15:41 [place] # (Auto) 0.53 K/uL (0.11-0.59) 09/10/24 15:41 Eos # (Auto) 0.23 K/uL (0.00-0.50) 09/10/24 15:41 Baso # (Auto) 0.03 K/uL (0.00-0.20) 09/10/24 15:41 Immature Gran # (Auto) 0.02 K/uL (0.01-0.20) 09/10/24 15:41 PT 10.7 Seconds (9.0-12.0) 09/10/24 15:41 INR 1.0 (0.9-1.1) 09/10/24 15:41 APTT 26 Seconds (21-31) 09/10/24 15:41 PTT Ratio 1.0 09/10/24 15:41 Sodium 137 mmol/L (136-145) 09/10/24 15:41 Potassium 3.2 mmol/L (3.5-5.1) L 09/10/24 15:41 Chloride 98 mmol/L (98-107) 09/10/24 15:41 Carbon Dioxide 33 mmol/L (21-32) H 09/10/24 15:41 Anion Gap 6 (3-11) 09/10/24 15:41 BUN 13 mg/dl (6-23) 09/10/24 15:41 Creatinine 0.90 mg/dl (0.6-1.2) 09/10/24 15:41 Est Cr Clr Drug Dosing 61.6 ml/min 09/10/24 15:41 eGFR 69.64 09/10/24 15:41 BUN/Creatinine Ratio 14.4 (10-20) 09/10/24 15:41 Glucose 104 mg/dl (70-99(Fasting)) H 09/10/24 15:41 POC Glucose 112 mg/dl (70-99) H 09/10/24 16:54 Calcium 9.8 mg/dl (8.6-10.3) 09/10/24 15:41 Magnesium 1.9 mg/dl (1.7-2.4) 09/10/24 15:41 Total Bilirubin 0.4 mg/dl (0.2-1.0) 09/10/24 15:41 AST 10 U/L (13-39) L 09/10/24 15:41 ALT 6 U/L (7-52) L 09/10/24 15:41 Alkaline Phosphatase 86 U/L (34-104) 09/10/24 15:41 Troponin I High Sens 74.3 pg/ml (0-14) H* D 09/10/24 18:09 Total Protein 6.8 gm/dl (6.0-8.3) 09/10/24 15:41 Albumin 4.2 gm/dl (3.4-5.0) 09/10/24 15:41 Globulin 2.6 gm/dl (2.5-4.0) 09/10/24 15:41 Albumin/Globulin Ratio 1.6 (0.9-2) 09/10/24 15:41 Urine Color Yellow 09/10/24 19:07 Urine Appearance Clear (Clear) 09/10/24 19:07 Urine pH 8.0 (4.5-7.5) H 09/10/24 19:07 Ur Specific [place] 1.022 (1.000-1.030) 09/10/24 19:07 Urine Protein Negative (Negative) 09/10/24 19:07 Urine Glucose (UA) Negative (Negative) 09/10/24 19:07 Urine Ketones Negative (Negative) 09/10/24 19:07 Urine Blood Negative (Negative) 09/10/24 19:07 Urine Nitrite Negative (Negative) 09/10/24 19:07 Urine Bilirubin Negative (Negative) 09/10/24 19:07 Urine Urobilinogen Negative (Negative) 09/10/24 19:07 Ur Leukocyte Esterase 1+ (Negative) H 09/10/24 19:07 Urine WBC (Auto) 0-5 /hpf (0-5) 09/10/24 19:07 Urine RBC (Auto) 3-5 /hpf (0-2) H 09/10/24 19:07 U Hyaline Cast (Auto) 0-2 /lpf (0-2) 09/10/24 19:07 U Epithel Cells (Auto) 0-2 /hpf (0-2) 09/10/24 19:07 Urine Bacteria (Auto) None Seen (None Seen) 09/10/24 19:07 Impressions Chest X-Ray 09/10/24 16:18 EXAM: X-ray chest one-view portable CLINICAL HISTORY: Neurodeficit, stroke suspected PRIORS: 05/02/2024, 06/03/2024 TECHNIQUE: Frontal view chest FINDINGS: The chest is well-expanded. No airspace consolidation, effusion or congestive changes. Heart size is normal. No pneumothorax. Trachea is patent. Osseous structures demonstrate no acute abnormality. No radiopaque foreign body. IMPRESSION: No plain film evidence of an acute cardiopulmonary process. Electronically signed by Melanie Leblanc 09-10-2024 4:[address] 09/10/24 16:18 EXAMINATION: Head CT without CLINICAL HISTORY: Neurodeficit, acute stroke suspected PRIORS: 07/16/2024 TECHNIQUE: Contiguous axial images were obtained through the head without the use of intravenous contrast. Sagittal and coronal reformations are supplied. FINDINGS: Mild parenchymal volume loss noted. Moderate periventricular lucency present in the white matter representing small vessel occlusive disease. Gutierrez-white differentiation is preserved. No edema or midline shift. No intra-axial or extra-axial hemorrhage. Ventricles are normal in size and configuration. Brainstem and cerebellum have a normal appearance. Calvarium unremarkable. Paranasal sinuses and mastoid air cells are well-pneumatized. Globes are intact. No retrobulbar abnormality. IMPRESSION: No CT evidence of an acute intracranial abnormality. Electronically signed by Melanie Leblanc 09-10-2024 6:23 PM Head CTA 09/10/24 16:18 EXAM: CTA head with CLINICAL HISTORY: Neurodeficit TECHNIQUE: Contiguous CTA axial images were obtained through the head after the administration of intravenous contrast. Sagittal and coronal reformations are supplied. PRIORS: None FINDINGS: Dental amalgam creates beam hardening artifact diminishing image quality. The vertebral arteries form the basilar artery at the skull base. [place] is patent. No thrombus or hemodynamically significant stenosis. No aneurysmal dilatation or romero aneurysm. No enhancing mass in the brain. IMPRESSION: No CTA evidence of an acute vascular abnormality. Electronically signed by Melanie Leblanc 09-10-2024 6:30 PM Neck CTA 09/10/24 16:18 EXAM: CT angio neck with con CLINICAL HISTORY: Neurodeficit TECHNIQUE: Contiguous CTA axial images were obtained through the neck with the administration of intravenous contrast. Sagittal and coronal reformations are supplied. MIPS are supplied. COMPARISON: None FINDINGS: Dental amalgam creates significant beam hardening artifact diminishing image quality. A left-sided aortic arch is noted. Very mild calcified atherosclerotic plaque present in the carotid bulbs with no hemodynamically significant stenosis. The internal carotid arteries are normal in appearance and course, entering the petrous portion of the skull base normally. The vertebral arteries are codominant with no atherosclerotic disease or stenosis. Both formed the basilar artery at the skull base. No enhancing mass in the visualized brain. Paranasal sinuses and mastoid air cells are well pneumatized. IMPRESSION: No CTA evidence of an acute vascular abnormality Electronically signed by Melanie Leblanc 09-10-2024 6:30 PM PG Care Time/CCT Total # of Minutes Spent Total Time Spent with Patient: Total time spent is greater than 50% in coordination of care (as documented) at patient's floor/unit and/or counseling patient: Coding Level of Care Code 68363 INT INP/OBS CARE 3/75MIN Diagnoses Cognitive decline R41.89 Generalized weakness R53.1 HTN (hypertension) I10 GERD (gastroesophageal reflux disease) K21.9
[2024-09-10] MEDS ORDERED: ACETAMINOPHEN 500 MG TAB PO PRN (21:20)
[2024-09-10] MEDS ORDERED: ONDANSETRON INJ 2 MG/ML 2 ML VIAL IV PRN (21:20)
[2024-09-10] MEDS ORDERED: clonazePAM 0.5 MG TAB PO PRN (21:20)
[2024-09-10 21:54] LABS: Thyroid Stimulating Hormone 5.291 uIu/ml (0.300-4.500)
[2024-09-10] MEDS: DOCUSATE SODIUM 100 MG CAP PO SCH (22:27)
[2024-09-10] MEDS: POTASSIUM CHLORIDE 10 MEQ TABCR PO STA (22:27)
[2024-09-10] MEDS: risperiDONE 1 MG TABLET PO SCH (22:28)
[2024-09-10] MEDS: carvediloL 12.5 MG TAB PO SCH (22:28)
[2024-09-10] MEDS: DULoxetine HCL 60 MG CAP PO SCH (22:28)
[2024-09-10] MEDS: GABAPENTIN 300 MG CAP PO SCH (22:28)
[2024-09-10] MEDS: cloNIDine HCL 0.1 MG TAB PO SCH (22:28)
[2024-09-10] MEDS: traZODone HCL 50 MG TAB PO SCH (22:28)
[2024-09-10] MEDS: buPROPion SR 150 MG TABCR PO SCH (22:29)
[2024-09-10] MEDS: DONEPEZIL HCL 10 MG TAB PO SCH (22:29)
[2024-09-10 22:31] LABS: T4 Free Thyroxine 0.85 ng/dl (0.61-1.60)
--- OUTSIDE RECORDS SUMMARY | 2024-09-11 05:28 | External Medical Summary | Continuity of Care Document ---
Author Name Unknown Organization [facility] [address] [address] Address [address] [id number] [id number] Date(s): 08/27/24 - 08/27/24 [facility] [address] [address] [facility] [place] [address], [address], [address] [place] [address] [phone] Discharge Disposition: Home or Self Care Attending Physician: DO Schmidt William K Encounter Type: [facility] [place] Insurance Providers Guarantor name: Health Plan Information #: 1 Payer: [facility] [employer] Member Number: [id number] Policy Number: NA Group Number: NA Payer Identifier: [id number] Health Plan Information #: 2 Payer: [facility] [employer] Member Number: [id number] Policy Number: NA Group Number: NA Payer Identifier: [id number]
[2024-09-11] MEDS: FAMOTIDINE 40 MG TABLET PO SCH (05:38)
[2024-09-11 07:51] LABS: Hematocrit (blood only) 35.3 % (37.0-47.0); Hemoglobin 11.7 g/dl (12.0-16.0); Mean Corpuscular Hemoglobin 27.2 pg (25.0-34.0); Mean Corpuscular Hgb Conc 33.1 g/dL (32.0-36.0); Mean Corpuscular Volume 82.1 fL (80.0-100.0); Mean Platelet Volume 9.7 fL (9.4-12.4); Platelet Count 248 K/uL (130-400); RDW Coefficient of Variation 12.1 % (11.5-14.5); RDW Standard Deviation 36.3 fL (36.4-46.3); White Blood Count 4.01 K/ul (4.8-10.8)
[2024-09-11 07:52] VITALS: BP 158/90; PULSE 66; RESP 16; TEMP 98.1; O2SAT 93
[2024-09-11 08:13] LABS: BUN Creatinine Ratio 11.9 (10-20); Calcium 9.3 mg/dl (8.6-10.3); Creatinine Clr Calc Pharmacy 64.7 ml/min; Potassium 4.2 mmol/L (3.5-5.1)
[2024-09-11] MEDS: hydroCHLOROthiazide 25 MG TAB PO SCH (08:18)
[2024-09-11] MEDS: ASPIRIN 81 MG ECTAB PO SCH (08:18)
[2024-09-11] MEDS: LOSARTAN POTASSIUM 50 MG TAB PO SCH (08:18)
[2024-09-11 09:45] LABS: Lyme Screen Rflx Confirmation Equivocal (Negative)
[2024-09-11 10:28] LABS: Lyme Ab IgG 2nd Tier Confirm Negative (Negative)
[2024-09-11 10:29] LABS: Lyme Ab IgM 2nd Tier Confirm Negative (Negative)
[2024-09-11] MEDS: THIAMINE HCL 200 MG in SODIUM CHLORIDE 0.9% 50 ML IV STA (10:34)
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
--- NOTE | 2024-09-12 23:52 | Electrocardiogram Report ---
Test Reason : Blood Pressure : */* mmHG Vent. Rate : 67 BPM Atrial Rate : 67 BPM P-R Int : 186 ms QRS Dur : 88 ms QT Int : 482 ms P-R-T Axes : 50 -1 126 degrees QTcB Int : 509 ms Normal sinus rhythm Prolonged QT Abnormal ECG When compared with ECG of 16-Jul-2024 13:42, Nonspecific T wave abnormality now evident in Inferior leads Confirmed by Estevan Edwards ([id number]) on 09/12/2024 11:51:39 PM Referred By: REFERRED SELF Confirmed By: Estevan Edwards
[2024-09-15 11:03] LABS: Babesia microti DNA Not Detected (Not Detected)
== END 2024-09-11 12:07 | disposition home or self-care (01) ==
LOC: ED 14:55 → INTOOBSV 19:39 → 3N 19:39 → SUATTDRO 19:39 → 3N 21:02

== ENCOUNTER 2025-01-18 11:37 | Inpatient (IN) ==
--- NOTE | 2025-01-18 11:58 | Emergency Department Note ---
Impression & Plan Generalized weakness, Pneumonia, Hypokalemia, Hydronephrosis, Confusion, Dementia ED Provider Note NAME: ALEN HARDING AGE: 69 SEX: F : 1955 ARRIVES VIA: Walk-In INFORMANT: Patient ED PROVIDER(S): Sterling Suero MD CHIEF COMPLAINT: Confusion, weakness PLAN: Disposition: Admit MEDICAL DECISION MAKING: The patient is a pleasant 69-year-old woman with a past medical history of anxiety/depression, suspected vascular dementia as a cause of cognitive impairment, lumbar stenosis status post decompression, hypertension who presents to the emergency department via EMS and accompanied by her son who is her caregiver for evaluation of worsening confusion from her baseline as well as generalized weakness where the patient is needed increased assistance with ambulation where they are suspicious that she may have a urinary tract infection which occurs when her symptoms worsen as they are. They deny any fevers. They deny any cough, congestion, diarrhea. Patient denies any urinary symptoms of burning but they report that she is urinating frequently. They report that she often will have a urinary tract infection and not be aware. Of note, Patient did have a left ureteral stent placed in August 20[address] in the setting of CT imaging demonstrating hydronephrosis secondary to a parapelvic cyst in the setting of having a urinary infection. The stent was removed a month later in September 2023. The son wonders whether or not this may be causing issues again where she may need another stent. On evaluation the patient is fatigued appearing but no acute distress, afebrile with heart in the 90s and blood pressure 140s/80s and vital signs otherwise stable. She appears clinically dry. She exhibits generalized weakness without focal extremity weakness. Abdomen is benign. EKG without overt acute ischemia. CXR negative for acute cardiopulmonary process per my personal preliminary review/interpretation. WBC 4.3 K with lymphopenia similar to prior without left shift. H/H is similar to prior. Platelets within normal limits. Chemistry without metabolic acidosis. Potassium 3.0 and electrolytes otherwise unremarkable. LFTs without significant abnormality. Initial HS troponin 84.8, similar to prior with a repeat stable and downtrending at 78.5. Procalcitonin is not elevated. TSH within normal limits. Lipase is not elevated. UA demonstrates WBCs but with epithelial cells present and no bacteria or nitrites. Urine cultures pending. CT of the abdomen/pelvis was performed and demonstrates recurrent focal hydronephrosis of the posterior upper left renal collecting system which is secondary to mass effect from adjacent large parapelvic cyst. Left lower lobe pneumonia is described and better characterized on lung views on CT. Findings were reviewed with the patient and son at the bedside. Given the patient's confusion and generalized weakness from her baseline in the setting of pneumonia they agree with plan for admission for further management. Treatment for CAP initiated with IV ceftriaxone and doxycycline at this time. Case was discussed with Dr. Douglass, admitting resident, with Dr. Roy [facility] hospitalist who will evaluate the patient for admission. Further management per admitting team. Triage Nursing notes reviewed and agree them. Prior/external medical records reviewed Vital Signs: reviewed Differential diagnosis: Infection, dehydration, metabolic abnormality, hypo/hyperglycemia, electrolyte disturbance, anemia, hypoxia, cardiac sources, intracerebral event, toxicologic, neurologic, as well as other pathologies. ER treatment provided: See below. Diagnostics interpreted by me: ECG: Normal sinus rhythm, 89 bpm, no ectopy, no overt ST elevation or depression, QTc 399, cures 82. Cardiac Monitoring: An order for continuous cardiac monitoring was placed and demonstrated normal sinus rhythm, 89 bpm, no ectopy Laboratory studies: See below Imaging studies: See below Consultation(s): Dr. Douglass, admitting resident, with FELIPA Marcelo hospitalist HPI: Per MDM. ROS: See above HPI for pertinent positives & negatives. A total of 10 systems reviewed and were otherwise negative. VITALS:See Below PHYSICAL EXAMINATION: GENERAL: Awake, alert, fatigued-appearing, in no distress HENT: Normocephalic, atraumatic. Oropharynx with dry mucous membranes and otherwise unremarkable. EYES: Normal conjunctiva. Sclera non-icteric. NECK: Supple. No nuchal rigidity. FROM. No JVD. RESPIRATORY: Clear to auscultation. CARDIAC: Regular rate, normal rhythm. Extremities warm and well perfused. Pulses equal. ABDOMEN: Soft, non-distended. No tenderness to palpation. No rebound or guarding. No masses. MUSCULOSKELETAL: Chest examination reveals no tenderness. The back is symmetrical on inspection without obvious abnormality. There is no CVA tenderness to palpation. No joint edema. LOWER EXTREMITIES: Calves are equal size bilaterally and non-tender. No edema. No discoloration. NEURO: Alert to self, place and situation. Generalized weakness without focal extremity weakness. SKIN: No rash or jaundice noted. Sterling Suero MD Past Med/Surg History Problem List (Updated 01/18/25 @ 19:39 by Sterling Suero MD) Dementia (Acute) Confusion (Acute) Pneumonia (Acute) Generalized weakness (Acute) Hydronephrosis (Acute) Hypokalemia (Acute) Pneumonia Weakness Status post lumbar spinal fusion Lumbar spinal stenosis Lumbosacral radiculopathy Idiopathic polyneuropathy Leg weakness, bilateral UTI (urinary tract infection), bacterial UTI symptoms Tremor Medical History Prolonged QT interval Ambulatory dysfunction Dementia Cognitive decline Confusion Mild cognitive impairment Ambulatory dysfunction Lumbosacral spondylosis with radiculopathy HTN (hypertension) Carotid aneurysm, right Ascending aortic aneurysm GERD (gastroesophageal reflux disease) controlled, stable per pt Suspected sleep apnea per son-no previous sleep study Pulmonary hypertension RVSP 40-50 mmHg 08/2023 echo during hospitalization at [facility] in setting of acute exacerbation of heart failure, acute renal failure, UTI Hx of hydronephrosis (08/2023) Chronic back pain Memory changes improving with pain reduction per patient/son--son Leobardo is patient's caregiver Sciatica Depression with anxiety Urinary urgency Hx of renal failure (08/2023) per son, recently had renal scan Hx of heart failure EF 55-60% HTN (hypertension) controlled, stable per pt History of nephrolithiasis (08/2023) inpt. at [facility] Surgical History Hx of colonoscopy S/P cystoscopy with ureteral stent placement (08/21/23) History of lumbar surgery (2009) L4-L5 Social History Smoking Status: Unknown if ever smoked Tobacco Type: Cigarettes Second Hand Exposure: No; Do You Dip or Chew Tobacco: No; Hx Alcohol Use: No Hx Substance Use: No Preferred Language: Kenyan Communication Ability: Effective Janitor Supervisor Required: No Beliefs That Will Affect Care: None Current Living Situation: Family Current Living Situation Comment: lives with the son Feels Safe at Home: Yes Assistive Devices: Walker and Wheelchair Allergies Allergies Allergy/AdvReac Type Severity Reaction Status Date / Time No Known Allergies Allergy Verified 01/18/25 15:50 Home Meds Home Medications Medication Instructions Recorded Confirmed bupropion HCl 150 mg tablet,12 hr 150 mg PO BID 08/05/23 01/18/25 sustained-release clonidine HCl 0.1 mg tablet 0.1 mg PO HS 08/05/23 01/18/25 gabapentin 300 mg capsule 300 mg PO BID 08/05/23 01/18/25 trazodone 100 mg tablet 150 mg PO HS 08/05/23 01/18/25 donepezil 10 mg tablet 10 mg PO HS 09/10/24 01/18/25 famotidine 40 mg tablet 40 mg PO QDD 09/10/24 01/18/25 hydrochlorothiazide 50 mg tablet 50 mg PO QAM 09/10/24 01/18/25 amlodipine 5 mg tablet (Norvasc) 5 mg PO DAILY 09/24/24 01/18/25 clonazepam 0.5 mg tablet 0.5 mg PO HS PRN Anxiety 09/24/24 01/18/25 duloxetine 60 mg capsule,delayed 120 mg PO DAILY 09/24/24 01/18/25 release tolterodine 2 mg tablet 2 mg PO AMHS 09/24/24 01/18/25 meloxicam 7.5 mg tablet 7.5 mg PO DAILY 10/01/24 01/18/25 cilostazol 50 mg tablet 50 mg PO BID 10/07/24 01/18/25 losartan 100 mg tablet 100 mg PO DAILY 10/07/24 01/18/25 carvedilol 12.5 mg tablet 12.5 mg PO BIDM 01/18/25 01/18/25 nitrofurantoin 100 mg PO BID 01/18/25 01/18/25 monohydrate/macrocrystals 100 mg capsule risperidone 1 mg tablet 1 mg PO QAM 01/18/25 01/18/25 Previous Rx's Medication Instructions Recorded methenamine hippurate 1 gram tablet 1 g PO BID #60 tabs 12/06/24 Results & Data (ED) Vital Signs Vital Signs - 24 hr 01/18/25 11:38 01/18/25 11:43 01/18/25 12:03 Temperature 36.6 C Temperature Source Temporal Artery Scan Pulse Rate 94 H Pulse Rate [Apical] Respiratory Rate 17 Respiratory Effort / Characteristics Non-Labored Spontaneous Respiratory Depth Normal Blood Pressure 142/80 H Blood Pressure [Right Arm] Blood Pressure Mean 100 Blood Pressure Mean [Right Arm] Pulse Oximetry 95 95 93 Oxygen Delivery Method Room Air Room Air Room Air Sepsis Recent Fever Within 48 Hours No Sepsis New/Unexplained Change in Mental Status No Sepsis Action Taken by Nursing No Action Required 01/18/25 12:13 01/18/25 13:03 01/18/25 14:08 Temperature Temperature Source Pulse Rate 81 Pulse Rate [Apical] 77 77 Respiratory Rate 20 20 Respiratory Effort / Characteristics Non-Labored Non-Labored Respiratory Depth Normal Normal Blood Pressure Blood Pressure [Right Arm] 116/77 130/84 Blood Pressure Mean Blood Pressure Mean [Right Arm] 90 99 Pulse Oximetry 93 91 Oxygen Delivery Method Room Air Room Air Sepsis Recent Fever Within 48 Hours Sepsis New/Unexplained Change in Mental Status Sepsis Action Taken by Nursing 01/18/25 16:00 01/18/25 16:32 01/18/25 18:00 Temperature Temperature Source Pulse Rate 82 Pulse Rate [Apical] 84 89 Respiratory Rate 16 16 Respiratory Effort / Characteristics Non-Labored Spontaneous Non-Labored Spontaneous Respiratory Depth Blood Pressure Blood Pressure [Right Arm] 146/87 H 127/93 Blood Pressure Mean Blood Pressure Mean [Right Arm] 106 104 Pulse Oximetry 92 Oxygen Delivery Method Room Air Room Air Sepsis Recent Fever Within 48 Hours Sepsis New/Unexplained Change in Mental Status Sepsis Action Taken by Nursing Laboratory Data Attestation: I reviewed the patient's lab results. 01/18/25 12:04 01/18/25 12:04 Lab Results 01/18/25 01/18/25 01/18/25 Range/Units 12:04 12:10 12:11 WBC 4.34 L (4.8-10.8) K/ul RBC 3.92 L (4.20-5.40) M/uL Hgb 10.9 L (12.0-16.0) g/dl POC Hgb 10.9 L (12.0-16.0) g/dl Hct 33.2 L (37.0-47.0) % POC Hct 32 L (37-47) % MCV 84.7 (80.0-100.0) fL MCH 27.8 (25.0-34.0) pg MCHC 32.8 (32.0-36.0) g/dL RDW Std Deviation 41.8 (36.4-46.3) fL RDW Coeff of Vamsi 13.5 (11.5-14.5) % Plt Count 267 (130-400) K/uL MPV 9.4 (9.4-12.4) fL Immature Gran % (Auto) 0.7 % Neut % (Auto) 59.1 % Lymph % (Auto) 17.3 % [place] % (Auto) 11.8 % Eos % (Auto) 10.4 % Baso % (Auto) 0.7 % Neut # (Auto) 2.57 (1.40-6.50) K/uL Lymph # (Auto) 0.75 L (1.20-3.40) K/uL [place] # (Auto) 0.51 (0.11-0.59) K/uL Eos # (Auto) 0.45 (0.00-0.50) K/uL Baso # (Auto) 0.03 (0.00-0.20) K/uL Immature Gran # (Auto) 0.03 (0.01-0.20) K/uL PT 10.3 (9.0-12.0) Seconds INR 0.9 (0.9-1.1) POC Sodium 142 (135-144) mmol/L Sodium 140 (136-145) mmol/L POC Potassium 3.0 L (3.3-5.0) mmol/L Potassium 3.0 L (3.5-5.1) mmol/L POC Chloride 100 L (101-112) mmol/L Chloride 103 (98-107) mmol/L Carbon Dioxide 30 (21-32) mmol/L POC Total CO2 25 (24-31) mmol/L Anion Gap 7 (3-11) POC Anion Gap 20.0 (16-25) mmol/L POC BUN 10 (7-18) mg/dl BUN 11 (6-23) mg/dl Creatinine 0.96 (0.6-1.2) mg/dl POC Creatinine 1.0 (0.6-1.3) mg/dl Est Cr Clr Drug Dosing 57.6 ml/min eGFR 64.45 BUN/Creatinine Ratio 11.5 (10-20) Glucose 135 H (70-99(Fasting)) mg/dl POC Glucose (other) 136 H (70-99) mg/dl Calcium 9.9 (8.6-10.3) mg/dl POC Ioniz Calcium Jhoan 1.27 (1.12-1.32) mmol/l Phosphorus 2.1 L (2.5-4.9) mg/dl Magnesium 1.8 (1.7-2.4) mg/dl Total Bilirubin 0.3 (0.2-1.0) mg/dl AST 12 L (13-39) U/L ALT 6 L (7-52) U/L Alkaline Phosphatase 54 (34-104) U/L Troponin I High Sens 84.8 H* (0-14) pg/ml Total Protein 6.9 (6.0-8.3) gm/dl Albumin 3.9 (3.4-5.0) gm/dl Globulin 3.0 (2.5-4.0) gm/dl Albumin/Globulin Ratio 1.3 (0.9-2) Lipase 13 (11-82) U/L Procalcitonin < 0.02 (0-0.5) ng/ml TSH 3.107 (0.300-4.500) uIu/ml Urine Color Yellow Urine Appearance Clear (Clear) Urine pH 6.0 (4.5-7.5) Ur Specific [place] 1.020 (1.000-1.030) Urine Protein 2+ H (Negative) Urine Glucose (UA) Negative (Negative) Urine Ketones Trace H (Negative) Urine Blood Negative (Negative) Urine Nitrite Negative (Negative) Urine Bilirubin Negative (Negative) Urine Urobilinogen Negative (Negative) Ur Leukocyte Esterase 2+ H (Negative) Urine WBC (Auto) >50 H (0-5) /hpf Urine RBC (Auto) 3-5 H (0-2) /hpf U Hyaline Cast (Auto) 3-5 H (0-2) /lpf U Epithel Cells (Auto) 3-5 H (0-2) /hpf Urine Bacteria (Auto) None Seen (None Seen) Urine Comment 01/18/25 Range/Units 13:52 WBC (4.8-10.8) K/ul RBC (4.20-5.40) M/uL Hgb (12.0-16.0) g/dl POC Hgb (12.0-16.0) g/dl Hct (37.0-47.0) % POC Hct (37-47) % MCV (80.0-100.0) fL MCH (25.0-34.0) pg MCHC (32.0-36.0) g/dL RDW Std Deviation (36.4-46.3) fL RDW Coeff of Vamsi (11.5-14.5) % Plt Count (130-400) K/uL MPV (9.4-12.4) fL Immature Gran % (Auto) % Neut % (Auto) % Lymph % (Auto) % [place] % (Auto) % Eos % (Auto) % Baso % (Auto) % Neut # (Auto) (1.40-6.50) K/uL Lymph # (Auto) (1.20-3.40) K/uL [place] # (Auto) (0.11-0.59) K/uL Eos # (Auto) (0.00-0.50) K/uL Baso # (Auto) (0.00-0.20) K/uL Immature Gran # (Auto) (0.01-0.20) K/uL PT (9.0-12.0) Seconds INR (0.9-1.1) POC Sodium (135-144) mmol/L Sodium (136-145) mmol/L POC Potassium (3.3-5.0) mmol/L Potassium (3.5-5.1) mmol/L POC Chloride (101-112) mmol/L Chloride (98-107) mmol/L Carbon Dioxide (21-32) mmol/L POC Total CO2 (24-31) mmol/L Anion Gap (3-11) POC Anion Gap (16-25) mmol/L POC BUN (7-18) mg/dl BUN (6-23) mg/dl Creatinine (0.6-1.2) mg/dl POC Creatinine (0.6-1.3) mg/dl Est Cr Clr Drug Dosing ml/min eGFR BUN/Creatinine Ratio (10-20) Glucose (70-99(Fasting)) mg/dl POC Glucose (other) (70-99) mg/dl Calcium (8.6-10.3) mg/dl POC Ioniz Calcium Jhoan (1.12-1.32) mmol/l Phosphorus (2.5-4.9) mg/dl Magnesium (1.7-2.4) mg/dl Total Bilirubin (0.2-1.0) mg/dl AST (13-39) U/L ALT (7-52) U/L Alkaline Phosphatase (34-104) U/L Troponin I High Sens 78.5 H* (0-14) pg/ml Total Protein (6.0-8.3) gm/dl Albumin (3.4-5.0) gm/dl Globulin (2.5-4.0) gm/dl Albumin/Globulin Ratio (0.9-2) Lipase (11-82) U/L Procalcitonin (0-0.5) ng/ml TSH (0.300-4.500) uIu/ml Urine Color Urine Appearance (Clear) Urine pH (4.5-7.5) Ur Specific [place] (1.000-1.030) Urine Protein (Negative) Urine Glucose (UA) (Negative) Urine Ketones (Negative) Urine Blood (Negative) Urine Nitrite (Negative) Urine Bilirubin (Negative) Urine Urobilinogen (Negative) Ur Leukocyte Esterase (Negative) Urine WBC (Auto) (0-5) /hpf Urine RBC (Auto) (0-2) /hpf U Hyaline Cast (Auto) (0-2) /lpf U Epithel Cells (Auto) (0-2) /hpf Urine Bacteria (Auto) (None Seen) Urine Comment Administered Medications Discontinued Medications Sodium Chloride (Nss) 1,000 mls @ 999 mls/hr IV .[id number] ONE Stop: 01/18/25 12:56 Last Infusion: 01/18/25 13:29 Dose: Infused Documented By: Admin: 01/18/25 12:11 Dose: 999 mls/hr Documented By: ES Ceftriaxone Sodium (Rocephin) 2,000 mg in 50 mls @ 100 mls/hr IV NOW STA Stop: 01/18/25 14:42 Last Infusion: 01/18/25 15:02 Dose: Infused Documented By: mls Admin: 01/18/25 14:32 Dose: 100 mls/hr Documented By: GODWIN Doxycycline Hyclate 100 mg/ (Dextrose) 100 mls @ 50 mls/hr IV NOW STA Stop: 01/18/25 16:12 Last Infusion: 01/18/25 17:30 Dose: Infused Documented By: Admin: 01/18/25 15:18 Dose: 50 mls/hr Documented By: mls Ioversol (Optiray 320 100ml) 94 ml IV ONCE ONE Stop: 01/18/25 12:58 Last Admin: 01/18/25 12:58 Dose: 94 ml Documented By: DIANA Imaging Data Radiologist's Impression: Chest X-Ray 01/18/25 11:56 XR chest 1V portable CLINICAL HISTORY: weakness COMPARISON STUDY: 10/13/2024 FINDINGS: Heart size and pulmonary vasculature are normal. No consolidation or pleural effusion. No pneumothorax. IMPRESSION: No acute findings. ACT 112: Negative or not required by law. Electronically signed by: Tito Morales M.D. 01/18/2025 12:11 PM Abdomen/Pelvis CT 01/18/25 12:[address] WITH IV CONTRAST CT DOSE: 1997.63 mGy.cm HISTORY: ?UTI, weakness TECHNIQUE: Multiaxial CT images of the abdomen and pelvis were performed following the IV administration of 90 cc of Optiray, A dose lowering technique was utilized adhering to the principles of ALARA. COMPARISON STUDY: 08/25/2023 FINDINGS: There is stable elevation of the right hemidiaphragm. There is interval moderate sized area of reticular nodular and patchy groundglass opacity at the left lower lung lobe consistent with pneumonia. ABDOMEN: Liver, gallbladder, spleen, pancreas, and adrenal glands are unremarkable. There is no hydronephrosis on the right. The prior left ureteral stent has been removed. Parapelvic cyst at the left upper kidney measures 6 cm, stable. There is interval dilatation of the posterior left upper renal collecting system, similar to the 08/20/2023 exam, before the left ureteral stent was placed. This resolved with placement of the prior left ureteral stent. This is consistent with recurrent focal hydronephrosis at the posterior upper left renal collecting system due to mass effect from the large parapelvic cyst. There are multiple tiny left renal calculi. There is no dilatation of the left ureter and no left ureteral calculi. No abdominal aortic aneurysm. Pelvis: Uterus and adnexa are unremarkable. Urinary bladder is nondistended. There is mild sigmoid diverticulosis. No acute diverticulitis. No bowel inflammation or obstruction. Normal appendix. No free fluid or free air. No enlarged adenopathy. Osseous structures: There is laminectomy and posterior metallic fusion from L4 through S1. No acute osseous findings. IMPRESSION: 1. Recurrent focal hydronephrosis of the posterior upper left renal collecting system due to mass effect from adjacent large parapelvic cyst. 2. Left lower lobe pneumonia. 3. No other acute findings seen. Otherwise as described. ACT 112: Negative or not required by law. The above report was generated using voice recognition software. It may contain grammatical, syntax or spelling errors. Electronically signed by: Tito Morales M.D. 01/18/2025 1:[address] 01/18/25 12:39 CT head/brain wo con CLINICAL HISTORY: weakness. TECHNIQUE: Multiple axial CT images of the head were obtained without contrast. A dose lowering technique was utilized adhering to the principles of ALARA. COMPARISON: 10/07/2024. FINDINGS: No intracranial hemorrhage seen. No mass effect, midline shift, or hydrocephalus. Stable moderate chronic small vessel ischemic changes. No skull fracture seen. Visualized paranasal sinuses and mastoid air cells are clear. IMPRESSION: No acute findings. ACT 112: Negative or not required by law. The above report was generated using voice recognition software. It may contain grammatical, syntax or spelling errors. Electronically signed by: Tito Morales M.D. 01/18/2025 1:22 PM Discharge Plan Visit Data Chief Complaint: Weakness Stated Complaint: CAN'T WALK, WEAK, DISORIENTED MENTALLY ED Provider: Sterling Suero Discharge Problem: Generalized weakness, Pneumonia, Hypokalemia, Hydronephrosis, Confusion, Dementia Patient Disposition: Admitted As Inpatient Condition: Fair Forms Stand Alone Forms: [facility] Prescriptions Prescriptions: No Action methenamine hippurate 1 gram tablet 1 g PO BID Qty: 60 11RF amlodipine [Norvasc] 5 mg tablet 5 mg PO DAILY meloxicam 7.5 mg tablet 7.5 mg PO DAILY bupropion HCl 150 mg tablet sustained-release 12 hr 150 mg PO BID clonidine HCl 0.1 mg tablet 0.1 mg PO HS trazodone 100 mg tablet 150 mg PO HS gabapentin 300 mg capsule 300 mg PO BID clonazepam 0.5 mg tablet 0.5 mg PO HS PRN (Reason: Anxiety) duloxetine 60 mg capsule,delayed release(DR/EC) 120 mg PO DAILY tolterodine 2 mg tablet 2 mg PO AMHS hydrochlorothiazide 50 mg tablet 50 mg PO QAM donepezil 10 mg tablet 10 mg PO HS famotidine 40 mg tablet 40 mg PO QDD carvedilol 12.5 mg tablet 12.5 mg PO BIDM risperidone 1 mg tablet 1 mg PO QAM nitrofurantoin monohyd/m-cryst 100 mg capsule 100 mg PO BID Rx Instructions: STARTED 01/13/25 FOR 7 DAYS cilostazol 50 mg tablet 50 mg PO BID losartan 100 mg tablet 100 mg PO DAILY Referrals Referrals: Eren Peters MD [Primary Care Provider] - Discharge Problem: Pneumonia Qualifiers: Pneumonia type: due to unspecified organism Laterality: left Lung location: l ower lobe of lung Qualified Code(s): J18.9 - Pneumonia, unspecified organism Hydronephrosis Qualifiers: Hydronephrosis type: unspecified Qualified Code(s): N13.30 - Unspecified hydronephrosis Dementia Qualifiers: Dementia type: unspecified type Dementia severity: unspecified severity D ementia behavioral or psychological symptom: without behavioral, psychotic, or mood disturbance or anxiety Qualified Code(s): F03.90 - Unspecified dementia, unspecified severity, without behavioral disturbance, psychotic disturbance, mood disturbance, and anxiety
[2025-01-18] MEDS: SODIUM CHLORIDE 0.9% 1,000 ML IV ONE (12:11)
--- NOTE | 2025-01-18 12:12 | XRay Report ---
XR chest 1V portable CLINICAL HISTORY: weakness COMPARISON STUDY: 10/13/2024 FINDINGS: Heart size and pulmonary vasculature are normal. No consolidation or pleural effusion. No p neumothorax. IMPRESSION: No acute findings. ACT 112: Negative or not required by law. Electronically signed by: Tito Morales M.D. 01/18/2025 12:11 PM
[2025-01-18 12:18] LABS: Hematocrit (blood only) 33.2 % (37.0-47.0); Hemoglobin 10.9 g/dl (12.0-16.0); Immature Granulocytes # (auto) 0.03 K/uL (0.01-0.20); Immature Granulocytes % (auto) 0.7 %; Mean Corpuscular Hemoglobin 27.8 pg (25.0-34.0); Mean Corpuscular Volume 84.7 fL (80.0-100.0); Platelet Count 267 K/uL (130-400); RDW Standard Deviation 41.8 fL (36.4-46.3); Red Blood Count 3.92 M/uL (4.20-5.40); White Blood Count 4.34 K/ul (4.8-10.8)
[2025-01-18 12:31] LABS: Appearance Urine Clear (Clear); Bacteria Urine Automated None Seen (None Seen); Glucose Urine UA Negative (Negative); WBC Urine Automated >50 /hpf (0-5)
[2025-01-18 12:37] LABS: Alanine Aminotransferase 6.0 U/L (7-52); Albumin Globulin Ratio 1.3 (0.9-2); Alkaline Phosphatase 54.0 U/L (34-104); Anion Gap 7.0 (3-11); Bilirubin,Total 0.3 mg/dl (0.2-1.0); Blood Urea Nitrogen 11.0 mg/dl (6-23); Calcium 9.9 mg/dl (8.6-10.3); Carbon Dioxide 30.0 mmol/L (21-32); Chloride 103.0 mmol/L (98-107); Creatinine Clr Calc Pharmacy 57.6 ml/min; Globulin 3.0 gm/dl (2.5-4.0); Glucose 135.0 mg/dl (70-99(Fasting)); Lipase 13.0 U/L (11-82); Magnesium 1.8 mg/dl (1.7-2.4); Potassium 3.0 mmol/L (3.5-5.1); Sodium 140.0 mmol/L (136-145); Total Protein 6.9 gm/dl (6.0-8.3)
[2025-01-18 12:46] LABS: INR 0.9 (0.9-1.1); Prothrombin Time 10.3 Seconds (9.0-12.0)
[2025-01-18 12:54] LABS: Thyroid Stimulating Hormone 3.107 uIu/ml (0.300-4.500)
[2025-01-18] MEDS: OPTIRAY 320 100ml IV ONE (12:58)
--- NOTE | 2025-01-18 13:24 | CT Scan Report ---
CT head/brain wo con CLINICAL HISTORY: weakness. TECHNIQUE: Multiple axial CT images of the head were obtained without contrast. A dose lowering tech nique was utilized adhering to the principles of ALARA. COMPARISON: 10/07/2024. FINDINGS: No intracranial hemorrhage seen. No mass effect, midline shift, or hydrocephalus. Stable mo derate chronic small vessel ischemic changes. No skull fracture seen. Visualized paranasal sinuses an d mastoid air cells are clear. IMPRESSION: No acute findings. ACT 112: Negative or not required by law. The above report was generated using voice recognition software. It may contain grammatical, syntax o r spelling errors. Electronically signed by: Tito Morales M.D. 01/18/2025 1:22 PM
--- NOTE | 2025-01-18 13:47 | CT Scan Report ---
ABDOMEN AND PELVIS CT WITH IV CONTRAST CT DOSE: 1997.63 mGy.cm HISTORY: ?UTI, weakness TECHNIQUE: Multiaxial CT images of the abdomen and pelvis were performed following the IV administrat ion of 90 cc of Optiray, A dose lowering technique was utilized adhering to the principles of ALARA. COMPARISON STUDY: 08/25/2023 FINDINGS: There is stable elevation of the right hemidiaphragm. There is interval moderate sized area of reticular nodular and patchy groundglass opacity at the left lower lung lobe consistent with pneu monia. ABDOMEN: Liver, gallbladder, spleen, pancreas, and adrenal glands are unremarkable. There is no hydro nephrosis on the right. The prior left ureteral stent has been removed. Parapelvic cyst at the left u pper kidney measures 6 cm, stable. There is interval dilatation of the posterior left upper renal col lecting system, similar to the 08/20/2023 exam, before the left ureteral stent was placed. This resolv ed with placement of the prior left ureteral stent. This is consistent with recurrent focal hydroneph rosis at the posterior upper left renal collecting system due to mass effect from the large parapelvi c cyst. There are multiple tiny left renal calculi. There is no dilatation of the left ureter and no left ureteral calculi. No abdominal aortic aneurysm. Pelvis: Uterus and adnexa are unremarkable. Urinary bladder is nondistended. There is mild sigmoid di verticulosis. No acute diverticulitis. No bowel inflammation or obstruction. Normal appendix. No free fluid or free air. No enlarged adenopathy. Osseous structures: There is laminectomy and posterior metallic fusion from L4 through S1. No acute o sseous findings. IMPRESSION: 1. Recurrent focal hydronephrosis of the posterior upper left renal collecting system due to mass eff ect from adjacent large parapelvic cyst. 2. Left lower lobe pneumonia. 3. No other acute findings seen. Otherwise as described. ACT 112: Negative or not required by law. The above report was generated using voice recognition software. It may contain grammatical, syntax o r spelling errors. Electronically signed by: Tito Morales M.D. 01/18/2025 1:45 PM
[2025-01-18] MEDS: cefTRIAXone SODIUM 2,000 MG/50 ML BAG IV STA (14:32)
[2025-01-18] MEDS: DOXYCYCLINE HYCLATE 100 MG in DEXTROSE 5% MINI-B 100 ML IV STA (15:18)
--- NOTE | 2025-01-18 15:33 | History & Physical Report ---
Date of Service January 18, 2025 Assessment & Plan (1) Weakness: (2) Pneumonia: (3) Hypokalemia: Plan Patient with history of vascular dementia is currently stable whose only complaint is mainly leg weakness, which the son says she gets whenever she is sick. Patient's son denied any bacterial symptoms such as fever, and N/V. Urinalysis came back unremarkable, and urine culture is pending. CXR showed no acute findings though CT abd/pelvis showed LLL pneumonia and a recurrent focal hydronephrosis of the posterior upper left renal collecting system due to mass effect from adjacent large parapelvic cyst. Head CT came back with no acute findings. Pneumonia/Weakness -Due to showing no upper respiratory symptoms, signs of bacterial infection, and unremarkable physical exam, will hold antibiotics unless symptoms of pneumonia occur or CRP shows signs of inflammation -Will also hold home methenamine and nitrofurantoin monohydrate due to unremarkable urinalysis and no UTI symptoms. -Order CRP -Order LR 125ml -Order PT and OT -CBC w/ diff in the AM Elevated Troponin -Troponin was 78.5, will repeat Hypokalemia -K was 3.0, will order 60mEq of K -BMP in the AM Full Code Status DVT Prophylaxis: 40mg Lovenox History of Present Illness Chief Complaint: Leg Weakness Primary Care Provider: Eren Peters MD Patient is a 69 year old female with history of vascular dementia, presents into the ER with leg weakness with her son. Her son stated that for the past couple of days the patient was feeling weak. However, at one point her legs gave out and the son had to hold her. Her son also stated that whenever the patient gets sick that her legs get weak. Son said that the patient has lots of mental confusion. Son said that the patient had right shoulder pain that started today. Patient was on macrobid for what was thought as another UTI. Patient has 2 more doses left. Patient finished Augmentin a week and a half ago. Son says she took all her medications this morning. Patient's son did say she gets short of breath when only laying down. Patient also sees Neurology and had an EMG done 2 weeks ago showing neuropathy. Patient also had an MRI last Sunday. Patient sees Dr. Stubbs in urology. Patient's daughter is the medical power of employment law attorney Patient's son denies fever, N/V, chest pain, palpitations, pain with urination, and abdominal pain. Allergies Allergy/AdvReac Type Severity Reaction Status Date / Time No Known Allergies Allergy Verified 01/18/25 15:50 Home Medications Medication Instructions Recorded Confirmed Type bupropion HCl 150 mg tablet,12 hr 150 mg PO BID 08/05/23 01/18/25 History sustained-release clonidine HCl 0.1 mg tablet 0.1 mg PO HS 08/05/23 01/18/25 History gabapentin 300 mg capsule 300 mg PO BID 08/05/23 01/18/25 History trazodone 100 mg tablet 150 mg PO HS 08/05/23 01/18/25 History donepezil 10 mg tablet 10 mg PO HS 09/10/24 01/18/25 History famotidine 40 mg tablet 40 mg PO QDD 09/10/24 01/18/25 History hydrochlorothiazide 50 mg tablet 50 mg PO QAM 09/10/24 01/18/25 History amlodipine 5 mg tablet (Norvasc) 5 mg PO DAILY 09/24/24 01/18/25 History clonazepam 0.5 mg tablet 0.5 mg PO HS PRN Anxiety 09/24/24 01/18/25 History duloxetine 60 mg capsule,delayed 120 mg PO DAILY 09/24/24 01/18/25 History release tolterodine 2 mg tablet 2 mg PO AMHS 09/24/24 01/18/25 History meloxicam 7.5 mg tablet 7.5 mg PO DAILY 10/01/24 01/18/25 History cilostazol 50 mg tablet 50 mg PO BID 10/07/24 01/18/25 History losartan 100 mg tablet 100 mg PO DAILY 10/07/24 01/18/25 History methenamine hippurate 1 gram tablet 1 g PO BID #60 tabs 12/06/24 01/18/25 Rx carvedilol 12.5 mg tablet 12.5 mg PO BIDM 01/18/25 01/18/25 History nitrofurantoin 100 mg PO BID 01/18/25 01/18/25 History monohydrate/macrocrystals 100 mg capsule risperidone 1 mg tablet 1 mg PO QAM 01/18/25 01/18/25 History Past Med/Surg History Problem List (Updated 01/18/25 @ 16:56 by Denny Evonne, DO) Hypokalemia Pneumonia Weakness Status post lumbar spinal fusion Lumbar spinal stenosis Lumbosacral radiculopathy Idiopathic polyneuropathy Leg weakness, bilateral UTI (urinary tract infection), bacterial UTI symptoms Tremor Medical History Prolonged QT interval Ambulatory dysfunction Dementia Cognitive decline Confusion Mild cognitive impairment Ambulatory dysfunction Lumbosacral spondylosis with radiculopathy HTN (hypertension) Carotid aneurysm, right Ascending aortic aneurysm GERD (gastroesophageal reflux disease) Suspected sleep apnea Pulmonary hypertension Hx of hydronephrosis (08/2023) Chronic back pain Memory changes Sciatica Depression with anxiety Urinary urgency Hx of renal failure (08/2023) Hx of heart failure HTN (hypertension) History of nephrolithiasis (08/2023) Surgical History Hx of colonoscopy S/P cystoscopy with ureteral stent placement (08/21/23) History of lumbar surgery (2009) Social History Smoking Status: Unknown if ever smoked Tobacco Type: Cigarettes Second Hand Exposure: No; Do You Dip or Chew Tobacco: No; Hx Alcohol Use: No Hx Substance Use: No Preferred Language: Vietnamese Communication Ability: Effective Poultry Inseminator Required: No Beliefs That Will Affect Care: None Current Living Situation: Family Current Living Situation Comment: lives with the son Feels Safe at Home: Yes Assistive Devices: Walker and Wheelchair Review of Systems Review of Systems: as per Subjective HPI Physical Exam Constitutional: WD/WN, vitals as above well nourished and + altered mental status (history of vascular dementia) Eyes: + anicteric sclerae and EOM intact bilat erally Neck: normal visual inspection Respiratory: normal respiratory effort, lungs clear to auscultation Cardiovascular: Rate/Rhythm: regular rate and regular rhythm Heart Sounds: normal S1 and normal S2; no murmur Extremities: + edema (trace in lower extremities B/L) Skin: no rashes, warm and dry Neurologic: awake Results & Data Results & Data Vital Signs (Past 12 Hours) Vital Signs Temp Pulse Pulse Resp BP BP Pulse Ox 01/18/25 14:08 77 20 130/84 91 01/18/25 13:03 77 20 116/77 93 01/18/25 12:13 81 01/18/25 12:03 93 01/18/25 11:43 95 01/18/25 11:38 36.6 C 94 H 17 142/80 H 95 O2 Del Method 01/18/25 14:08 Room Air 01/18/25 13:03 Room Air 01/18/25 12:13 01/18/25 12:03 Room Air 01/18/25 11:43 Room Air 01/18/25 11:38 Room Air Supervising Physician Co-Signing Physician Notes I personally examined the patient and verified all rosa points of history and exam, discussed case, and agree with decision making with Dr Douglass More confused over the last day or 2. Then got weaker. No specific or focal symptoms. Vitals noted, in general she is awake and alert pleasant seems easily confused, no distress. HEENT normocephalic atraumatic, breathing unlabored no accessory muscle use good effort. Skin without rashes pallor or icterus. Neuro without focal deficits. Delirium superimposed on dementia multiple possible causes ----- Given probably reasonably poor p.o. intake recently as well as hot weatherdehydration is certainly an extremely common causes for delirium (and son who is her caregiver agrees she could easily be dehydrated right now)IV fluids ------ small pneumonia incidentally seen on CT scan. She does not have any respiratory symptoms, this could easily just be an incidental findingcertainly does not appear to have a bacterial infection (will check inflammatory markers and treat if they are markedly elevated, otherwise watchful waiting)but if this turns out to be real certainly that could be driving the delirium ------- hard to tell if any urologic issues are driving itshe has no urinary symptoms, no fevers chills or sweatsso I would suspect she has no UTI at play, but it is a little bit hard to tell (she is currently on Macrobid), it is also probably not related to the urinary obstruction itself given no flank pain and no AKIbut in discussion with urology, the situation seems nuanced enough that Dr. Stubbs will see her to offer assistance. ------- I doubt the Macrobid itself is culprit given that she has been on it for 5-6 days before getting confused, but it can be ------- her son is her primary caregiver, and so I suspect she is probably getting her meds on time/regularly, but if she were at all able to get into her own medications, certainly polypharmacy could be at play as well low [id number] PT/OT eval and treat, lives at home with her son who is her full-time caregivershe will probably be able to go back home with him on discharge. DVT prophylaxisLovenox
--- NOTE | 2025-01-18 17:49 | Billing Data ---
Date of Service January 18, 2025 Coding Level of Care Code 54163 INT INP/OBS CARE
--- NOTE | 2025-01-18 19:14 | Urology Consultation ---
Date of Consultation January 18, 2025 Assessment & Plan (1) Hydronephrosis: Patient is being admitted on the hospitalist service. From a urologic perspective the following recommendations are: Patient has what appears to be recurrent hydronephrosis of a focal nature on her CT scan. This may be related to a adjacent parapelvic cyst. At the present time the patient is nontoxic-appearing (she is normotensive without tachycardia or fever and does not exhibit leukocytosis or acute kidney injury) Patient's weakness may be multifactorialshe apparently has left lower lobe pneumonia as well as a potential urinary tract infection She has been placed on antibiotics in form of Rocephin which should continue. Antibiotics be tailored based on her clinical response and pending culture data Recommend making the patient n.p.o. after midnight. She will be reevaluated by her dayshift team on 01/19/2025 and a determination will be made patient does require cystoscopy for her noted hydronephrosis Additional recommendations will be forthcoming based on her clinical course as it unfolds History of Present Illness Reason for Consultation: Hydronephrosis History of Present Illness This is a 69-year-old female who presented to the emergency department secondary to weakness. Patient has an underlying history of vascular dementia which is limiting the patient's historical information. When the hospitalist admitted the patient her son was reportedly present and he reported that patient was noted to have lower extremity weakness where her legs would seem to give out. Patient also reportedly has had some worsening mental confusion. Patient was also recently treated for a urinary tract infection. At the time of my interview with the patient she denied any nausea or vomiting. She denies any abdominal pain. She denies any back or flank pain. She reports no urinary difficulties. Review of patient's records show that she does follow with Dr. Leobardo Hong of [facility]. The patient has had episodes of hydronephrosis in the past requiring cystoscopy with ureteral stent placement. Her most recent procedure was on 08/21/2023 at which time a left ureteral stent was placed. Since arrival to the emergency department this evening the patient has had labs and imaging which I independent reviewed. Chest x-ray showed no evidence of pleural effusion, consolidation, or pneumothorax. A CT scan of the head showed no acute intracranial findings. A CT scan of the abdomen pelvis was performed that showed the patient had focal hydronephrosis involving the upper left renal collecting system. This was felt to potentially be due to mass effect due to a large parapelvic cyst. There was concern that patient has a left lower lobe pneumonia on the study. Labs included a CBC were white blood cell count was 4.3. Hemoglobin hematocrit are 10.9 and 33.2. Platelet count is normal. INR was 0.9. Chemistry profile showed sodium was 140 with a potassium of 3.0. BUN and creatinine are both normal. Patient did have a urinalysis that was negative for nitrites but did have 2+ leukocyte esterase and pyuria with greater than 50 white blood cells per high-power field. There is no bacteria on the study. At the time my interview she was resting comfortably in bed and was in no distress. Allergies Allergy/AdvReac Type Severity Reaction Status Date / Time No Known Allergies Allergy Verified 01/18/25 15:50 Home Medications Medication Instructions Recorded Confirmed Type bupropion HCl 150 mg tablet,12 hr 150 mg PO BID 08/05/23 01/18/25 History sustained-release clonidine HCl 0.1 mg tablet 0.1 mg PO HS 08/05/23 01/18/25 History gabapentin 300 mg capsule 300 mg PO BID 08/05/23 01/18/25 History trazodone 100 mg tablet 150 mg PO HS 08/05/23 01/18/25 History donepezil 10 mg tablet 10 mg PO HS 09/10/24 01/18/25 History famotidine 40 mg tablet 40 mg PO QDD 09/10/24 01/18/25 History hydrochlorothiazide 50 mg tablet 50 mg PO QAM 09/10/24 01/18/25 History amlodipine 5 mg tablet (Norvasc) 5 mg PO DAILY 09/24/24 01/18/25 History clonazepam 0.5 mg tablet 0.5 mg PO HS PRN Anxiety 09/24/24 01/18/25 History duloxetine 60 mg capsule,delayed 120 mg PO DAILY 09/24/24 01/18/25 History release tolterodine 2 mg tablet 2 mg PO AMHS 09/24/24 01/18/25 History meloxicam 7.5 mg tablet 7.5 mg PO DAILY 10/01/24 01/18/25 History cilostazol 50 mg tablet 50 mg PO BID 10/07/24 01/18/25 History losartan 100 mg tablet 100 mg PO DAILY 10/07/24 01/18/25 History methenamine hippurate 1 gram tablet 1 g PO BID #60 tabs 12/06/24 01/18/25 Rx carvedilol 12.5 mg tablet 12.5 mg PO BIDM 01/18/25 01/18/25 History nitrofurantoin 100 mg PO BID 01/18/25 01/18/25 History monohydrate/macrocrystals 100 mg capsule risperidone 1 mg tablet 1 mg PO QAM 01/18/25 01/18/25 History Patient History Medical History Prolonged QT interval Ambulatory dysfunction Dementia Cognitive decline Confusion Mild cognitive impairment Ambulatory dysfunction Lumbosacral spondylosis with radiculopathy HTN (hypertension) Carotid aneurysm, right Ascending aortic aneurysm GERD (gastroesophageal reflux disease) controlled, stable per pt Suspected sleep apnea per son-no previous sleep study Pulmonary hypertension RVSP 40-50 mmHg 08/2023 echo during hospitalization at [facility] in setting of acute exacerbation of heart failure, acute renal failure, UTI Hx of hydronephrosis (08/2023) Chronic back pain Memory changes improving with pain reduction per patient/son--son Leobardo is patient's caregiver Sciatica Depression with anxiety Urinary urgency Hx of renal failure (08/2023) per son, recently had renal scan Hx of heart failure EF 55-60% HTN (hypertension) controlled, stable per pt History of nephrolithiasis (08/2023) [facility] at [facility] Surgical History Hx of colonoscopy S/P cystoscopy with ureteral stent placement (08/21/23) History of lumbar surgery (2009) L4-L5 Social History Smoking Status: Unknown if ever smoked Tobacco Type: Cigarettes Second Hand Exposure: No; Do You Dip or Chew Tobacco: No; Hx Alcohol Use: No Hx Substance Use: No Preferred Language: Cook Islander Communication Ability: Effective Planting Material Unloader Required: No Beliefs That Will Affect Care: None Current Living Situation: Family Current Living Situation Comment: lives with the son Feels Safe at Home: Yes Assistive Devices: Walker and Wheelchair Review of Systems Review of Systems: Unobtainable due to cognitive status Physical Exam Constitutional: WD/WN, vitals as above Eyes: Wears glasses ENMT: Ears: no hearing impairment Neck: trachea midline Respiratory: normal respiratory effort; no respiratory distress and no labored breathing Cardiovascular: Rate/Rhythm: regular rate and regular rhythm Gastrointestinal (Abdomen): Soft and nontender to palpation Musculoskeletal: No calf tenderness Skin: no rashes Neurologic: Patient is able to move all 4 extremities Genitourinary: No CVA tenderness with percussion bilaterally Results & Data Vital Signs (Past 12 Hours) Vital Signs Temp Pulse Pulse Resp BP BP Pulse Ox 01/18/25 18:00 89 16 127/93 01/18/25 16:32 82 01/18/25 16:00 84 16 146/87 H 92 01/18/25 14:08 77 20 130/84 91 01/18/25 13:03 77 20 116/77 93 01/18/25 12:13 81 01/18/25 12:03 93 01/18/25 11:43 95 01/18/25 11:38 36.6 C 94 H 17 142/80 H 95 O2 Del Method 01/18/25 18:00 Room Air 01/18/25 16:32 01/18/25 16:00 Room Air 01/18/25 14:08 Room Air 01/18/25 13:03 Room Air 01/18/25 12:13 01/18/25 12:03 Room Air 01/18/25 11:43 Room Air 01/18/25 11:38 Room Air PG Care Time/CCT Total # of Minutes Spent Total Time Spent with Patient: Total time spent is greater than 50% in coordination of care (as documented) at patient's floor/unit and/or counseling patient: Coding Level of Care Code 58961 INT INP/OBS CARE 75MIN Diagnoses Hydronephrosis N13.30
[2025-01-18] MEDS ORDERED: clonazePAM 0.5 MG TAB PO PRN (20:14)
[2025-01-18] MEDS ORDERED: ONDANSETRON INJ 2 MG/ML 2 ML VIAL IV PRN (20:14)
[2025-01-18] MEDS ORDERED: POLYETHYLENE (MIRALAX) 17 GM PACK PO PRN (20:14)
[2025-01-18] MEDS: POTASSIUM CHLORIDE CRTAB 20 MEQ TABCR PO STA (21:01)
[2025-01-18] MEDS: LACTATED RINGER'S 1,000 ML IV SCH (21:02)
[2025-01-18] MEDS: FAMOTIDINE 40 MG TABLET PO SCH (21:32)
[2025-01-18] MEDS: GABAPENTIN 300 MG CAP PO SCH (21:33)
[2025-01-18] MEDS: DONEPEZIL HCL 10 MG TAB PO SCH (21:33)
[2025-01-19] MEDS: ENOXAPARIN INJ 40 MG/0.4 ML SYR SQ SCH (08:01)
[2025-01-19] MEDS: LOSARTAN POTASSIUM 50 MG TAB PO SCH (08:01)
[2025-01-19] MEDS: ACETAMINOPHEN 325 MG TAB PO PRN (08:01)
[2025-01-19] MEDS: MELOXICAM 7.5 MG TAB PO SCH (08:02)
[2025-01-19] MEDS: hydroCHLOROthiazide 25 MG TAB PO SCH (08:02)
--- NOTE | 2025-01-19 09:07 | Urology Progress Note ---
Date of Service January 19, 2025 Assessment & Plan (1) Hydronephrosis: Plan 69yo F admitted with weakness/confusion, pneumonia, and concern for UTI. CT abdomen pelvis was performed that showed the patient had focal hydronephrosis involving the upper left renal collecting system felt to potentially be due to mass effect due to a large parapelvic cyst and findings of left lower lobe pneumonia. She is afebrile and hemodynamically stable. Labs today show no leukocytosis and normal renal function. Urine culture pending. She received Ceftriaxone and Doxycycline in the ED. She was recently treated w/Augmentin for an outpatient urine PCR (12/25/24) which grew Enterococcus and E.coli. Based on the PCR, would recommend broad spectrum antibiotic coverage with Zosyn with plans to transition to an extended course of Nitrofurantoin on discharge. CT imaging showed a large parapelvic cyst. There does not appear to be any significant hydronephrosis. No plan for acute intervention. Discussed with hospitalist. Urology to follow. Admission and Anticipated Discharge Date Admission Date: January 18, 2025 Subjective Pt seen at bedside today. Sitting in bedside chair. NAD. Son at bedside. Review of Systems Constitutional: as per Subjective / HPI Genitourinary: as per Subjective / HPI Physical Exam Constitutional: no acute distress Respiratory: no respiratory distress and no labored breathing Neurologic: awake Psychiatric: Orientation: alert, oriented to person and cooperative Results & Data Vital Signs (Past 12 Hours) Vital Signs Temp Pulse Pulse Pulse Resp BP Pulse Ox 01/19/25 08:19 36.7 C 98 H 20 136/92 95 01/19/25 07:24 89 01/19/25 03:05 36.5 C 86 16 129/76 93 01/18/25 22:57 01/18/25 22:57 36.4 C L 87 18 160/92 H 93 01/18/25 22:50 89 O2 Del Method 01/19/25 08:19 Room Air 01/19/25 07:24 01/19/25 03:05 Room Air 01/18/25 22:57 Room Air 01/18/25 22:57 Room Air 01/18/25 22:50 PG Care Time/CCT Total # of Minutes Spent Total Time Spent with Patient: Total time spent is greater than 50% in coordination of care (as documented) at patient's floor/unit and/or counseling patient: Coding Level of Care Code 40256 SUB INP/OBS CARE 2MIN Diagnoses Hydronephrosis N13.30 Hydronephrosis type: unspecified (1) Hydronephrosis Hydronephrosis type: unspecified Qualified Code(s): N13.30 - Unspecified hydronephrosis
[2025-01-19 09:28] LABS: Hematocrit (blood only) 34.7 % (37.0-47.0); Hemoglobin 11.4 g/dl (12.0-16.0); Immature Granulocytes # (auto) 0.01 K/uL (0.01-0.20); Immature Granulocytes % (auto) 0.2 %; Mean Corpuscular Hemoglobin 27.7 pg (25.0-34.0); Mean Corpuscular Volume 84.4 fL (80.0-100.0); Platelet Count 273 K/uL (130-400); RDW Standard Deviation 41.7 fL (36.4-46.3); Red Blood Count 4.11 M/uL (4.20-5.40); White Blood Count 5.03 K/ul (4.8-10.8)
[2025-01-19 09:40] LABS: Anion Gap 5.0 (3-11); Blood Urea Nitrogen 8.0 mg/dl (6-23); Calcium 9.7 mg/dl (8.6-10.3); Carbon Dioxide 29.0 mmol/L (21-32); Chloride 106.0 mmol/L (98-107); Creatinine Clr Calc Pharmacy 74.6 ml/min; Glucose 123.0 mg/dl (70-99(Fasting)); Potassium 3.6 mmol/L (3.5-5.1); Sodium 140.0 mmol/L (136-145)
--- NOTE | 2025-01-19 10:34 | Hospitalist Progress Note ---
Date of Service January 19, 2025 Assessment & Plan (1) Weakness: (2) Pneumonia: (3) Hypokalemia: Plan Patient with history of vascular dementia is currently stable whose only complaint is mainly leg weakness, which the son says she gets whenever she is sick. Patient's son denied any bacterial symptoms such as fever, and N/V. Urinalysis came back unremarkable, and urine culture is pending. CXR showed no acute findings though CT abd/pelvis showed LLL pneumonia and a recurrent focal hydronephrosis of the posterior upper left renal collecting system due to mass effect from adjacent large parapelvic cyst. Head CT came back with no acute findings. Weakness -Multifactorial, clinically improving, predominantly likely secondary to recurrent urinary tract infection as outlined below - Resume normal diet, continue supportive cares, PT and OT assessment if this persists - Decrease IV fluids to 75 cc/h until she has more meals and then will discontinue fluids - PT and OT evaluation pending Recurrent complicated UTI - Urology consultation, discussion with those providers she has had recurrent PCR proven polymicrobial UTI with Enterococcus and E. coli in the outpatient setting -Minimal elevation in CRP, negative procalcitonin, CRP improving with single dose of Rocephin minimizing the likelihood that Enterococcus is playing an active role at this time - Most recently treated with a prolonged course of Augmentin, multiple rapid recurrences after cessation of antibiotic therapy - Possible mild hydronephrosis although no intervention at this time, undetermined significance of cyst in relation to recurrent infections - Current plan for broad-spectrum coverage such as Zosyn, transition to nitrofurantoin for extended course and potential prophylaxis - Consulted infectious disease for antimicrobial selection/clinical course Atelectasis versus pneumonia -Noted on CT, no respiratory symptoms, atelectasis likely secondary to regional inflammation from recurrent UTIs, no evidence of ongoing SIRS at this time -Antibiotics as above, continue to follow CRP for trending -Decrease LR to 75 cc cc per hour, no procedure planned as above. Resume normal diet, stop IVF once she is eating well. -CBC w/ diff and CRP in the AM, second procalcitonin this morning pending Elevated Troponin - No chest pain or clinical signs of ACS, repeat consistent with recent values, likely secondary to ongoing low-level leak in the setting of LVH Hypokalemia - Normalized after supplementation Full Code Status -DVT Prophylaxis: 40mg Lovenox Admission and Anticipated Discharge Date Admission Date: January 18, 2025 Subjective Alert and oriented and sitting at the bedside, comfortable. Has been n.p.o. since midnight. She wants no new recurrent symptoms. No problems with elevations. Her daughter was on the telephone remotely. We discussed recurrent urinary tract infections with clinically significant weakness difficulties and some infections have posed. She is much better clinically today. No other acute events or concerns Physical Exam Constitutional: WD/WN, vitals as above ENMT: Sclera clear, mucous membranes moist Respiratory: Clear to auscultation bilaterally Cardiovascular: Regular rate and rhythm no murmurs rubs or gallops Gastrointestinal (Abdomen): Normal bowel sounds, no costovertebral angle tenderness Skin: No rash or discoloration Results & Data Results & Data Vital Signs (Past 12 Hours) Vital Signs Temp Pulse Pulse Pulse Resp BP Pulse Ox 01/19/25 08:19 36.7 C 98 H 20 136/92 95 01/19/25 07:24 89 01/19/25 03:05 36.5 C 86 16 129/76 93 01/18/25 22:57 01/18/25 22:57 36.4 C L 87 18 160/92 H 93 01/18/25 22:50 89 O2 Del Method 01/19/25 08:19 Room Air 01/19/25 07:24 01/19/25 03:05 Room Air 01/18/25 22:57 Room Air 01/18/25 22:57 Room Air 01/18/25 22:50 Laboratory Results 01/18/25 12:11 Urine Culture - Pending Urine,Clean Catch 01/19/25 01/18/25 01/18/25 08:51 20:20 13:52 WBC 5.03 RBC 4.11 L Hgb 11.4 L POC Hgb Hct 34.7 L POC Hct MCV 84.4 MCH 27.7 MCHC 32.9 RDW Std Deviation 41.7 RDW Coeff of Vamsi 13.5 Plt Count 273 MPV 9.1 L Immature Gran % (Auto) 0.2 Neut % (Auto) 70.8 Lymph % (Auto) 8.2 Monroe % (Auto) 11.9 Eos % (Auto) 8.3 Baso % (Auto) 0.6 Neut # (Auto) 3.56 Lymph # (Auto) 0.41 L Monroe # (Auto) 0.60 H Eos # (Auto) 0.42 Baso # (Auto) 0.03 Immature Gran # (Auto) 0.01 PT INR POC Sodium Sodium 140 POC Potassium Potassium 3.6 POC Chloride Chloride 106 Carbon Dioxide 29 POC Total CO2 Anion Gap 5 POC Anion Gap POC BUN BUN 8 Creatinine 0.72 POC Creatinine Est Cr Clr Drug Dosing 74.6 eGFR 91.02 BUN/Creatinine Ratio 11.1 Glucose 123 H POC Glucose (other) Calcium 9.7 POC Ioniz Calcium Jhoan Phosphorus Magnesium Total Bilirubin AST ALT Alkaline Phosphatase Troponin I High Sens 79.6 H* 80.2 H* 78.5 H* C-Reactive Protein 2.93 H 3.37 H Total Protein Albumin Globulin Albumin/Globulin Ratio Lipase Procalcitonin TSH Urine Color Urine Appearance Urine pH Ur Specific [place] Urine Protein Urine Glucose (UA) Urine Ketones Urine Blood Urine Nitrite Urine Bilirubin Urine Urobilinogen Ur Leukocyte Esterase Urine WBC (Auto) Urine RBC (Auto) U Hyaline Cast (Auto) U Epithel Cells (Auto) Urine Bacteria (Auto) Urine Comment 01/18/25 01/18/25 01/18/25 12:11 12:10 12:04 WBC 4.34 L RBC 3.92 L Hgb 10.9 L POC Hgb 10.9 L Hct 33.2 L POC Hct 32 L MCV 84.7 MCH 27.8 MCHC 32.8 RDW Std Deviation 41.8 RDW Coeff of Vamsi 13.5 Plt Count 267 MPV 9.4 Immature Gran % (Auto) 0.7 Neut % (Auto) 59.1 Lymph % (Auto) 17.3 [place] % (Auto) 11.8 Eos % (Auto) 10.4 Baso % (Auto) 0.7 Neut # (Auto) 2.57 Lymph # (Auto) 0.75 L [place] # (Auto) 0.51 Eos # (Auto) 0.45 Baso # (Auto) 0.03 Immature Gran # (Auto) 0.03 PT 10.3 INR 0.9 POC Sodium 142 Sodium 140 POC Potassium 3.0 L Potassium 3.0 L POC Chloride 100 L Chloride 103 Carbon Dioxide 30 POC Total CO2 25 Anion Gap 7 POC Anion Gap 20.0 POC BUN 10 BUN 11 Creatinine 0.96 POC Creatinine 1.0 Est Cr Clr Drug Dosing 57.6 eGFR 64.45 BUN/Creatinine Ratio 11.5 Glucose 135 H POC Glucose (other) 136 H Calcium 9.9 POC Ioniz Calcium Jhoan 1.27 Phosphorus 2.1 L Magnesium 1.8 Total Bilirubin 0.3 AST 12 L ALT 6 L Alkaline Phosphatase 54 Troponin I High Sens 84.8 H* C-Reactive Protein Total Protein 6.9 Albumin 3.9 Globulin 3.0 Albumin/Globulin Ratio 1.3 Lipase 13 Procalcitonin < 0.02 TSH 3.107 Urine Color Yellow Urine Appearance Clear Urine pH 6.0 Ur Specific [place] 1.020 Urine Protein 2+ H Urine Glucose (UA) Negative Urine Ketones Trace H Urine Blood Negative Urine Nitrite Negative Urine Bilirubin Negative Urine Urobilinogen Negative Ur Leukocyte Esterase 2+ H Urine WBC (Auto) >50 H Urine RBC (Auto) 3-5 H U Hyaline Cast (Auto) 3-5 H U Epithel Cells (Auto) 3-5 H Urine Bacteria (Auto) None Seen Urine Comment Diagnostic Findings Chest X-Ray 01/18/25 11:56 XR chest 1V portable CLINICAL HISTORY: weakness COMPARISON STUDY: 10/13/2024 FINDINGS: Heart size and pulmonary vasculature are normal. No consolidation or pleural effusion. No pneumothorax. IMPRESSION: No acute findings. ACT 112: Negative or not required by law. Electronically signed by: Tito Morales M.D. 01/18/2025 12:11 PM Abdomen/Pelvis CT 01/18/25 12:[address] WITH IV CONTRAST CT DOSE: 1997.63 mGy.cm HISTORY: ?UTI, weakness TECHNIQUE: Multiaxial CT images of the abdomen and pelvis were performed following the IV administration of 90 cc of Optiray, A dose lowering technique was utilized adhering to the principles of ALARA. COMPARISON STUDY: 08/25/2023 FINDINGS: There is stable elevation of the right hemidiaphragm. There is interval moderate sized area of reticular nodular and patchy groundglass opacity at the left lower lung lobe consistent with pneumonia. ABDOMEN: Liver, gallbladder, spleen, pancreas, and adrenal glands are unremarkable. There is no hydronephrosis on the right. The prior left ureteral stent has been removed. Parapelvic cyst at the left upper kidney measures 6 cm, stable. There is interval dilatation of the posterior left upper renal collecting system, similar to the 08/20/2023 exam, before the left ureteral stent was placed. This resolved with placement of the prior left ureteral stent. This is consistent with recurrent focal hydronephrosis at the posterior upper left renal collecting system due to mass effect from the large parapelvic cyst. There are multiple tiny left renal calculi. There is no dilatation of the left ureter and no left ureteral calculi. No abdominal aortic aneurysm. Pelvis: Uterus and adnexa are unremarkable. Urinary bladder is nondistended. There is mild sigmoid diverticulosis. No acute diverticulitis. No bowel inflammation or obstruction. Normal appendix. No free fluid or free air. No enlarged adenopathy. Osseous structures: There is laminectomy and posterior metallic fusion from L4 through S1. No acute osseous findings. IMPRESSION: 1. Recurrent focal hydronephrosis of the posterior upper left renal collecting system due to mass effect from adjacent large parapelvic cyst. 2. Left lower lobe pneumonia. 3. No other acute findings seen. Otherwise as described. ACT 112: Negative or not required by law. The above report was generated using voice recognition software. It may contain grammatical, syntax or spelling errors. Electronically signed by: Tito Morales M.D. 01/18/2025 1:[address] 01/18/25 12:39 CT head/brain wo con CLINICAL HISTORY: weakness. TECHNIQUE: Multiple axial CT images of the head were obtained without contrast. A dose lowering technique was utilized adhering to the principles of ALARA. COMPARISON: 10/07/2024. FINDINGS: No intracranial hemorrhage seen. No mass effect, midline shift, or hydrocephalus. Stable moderate chronic small vessel ischemic changes. No skull fracture seen. Visualized paranasal sinuses and mastoid air cells are clear. IMPRESSION: No acute findings. ACT 112: Negative or not required by law. The above report was generated using voice recognition software. It may contain grammatical, syntax or spelling errors. Electronically signed by: Tito Morales M.D. 01/18/2025 1:22 PM PG Care Time/CCT Total # of Minutes Spent Total Time Spent with Patient: Total time spent is greater than 50% in coordination of care (as documented) at patient's floor/unit and/or counseling patient: Coding Level of Care Code 13858 SUB INP/OBS CARE 2/35MIN Diagnoses Weakness R53.1 Pneumonia J18.9 Hypokalemia E87.6
--- NOTE | 2025-01-19 11:59 | Urology Progress Note ---
Date of Service January 19, 2025 Assessment & Plan (1) UTI (urinary tract infection), bacterial: Plan Recurrent UTIs She had a urine PCR in December which shows Enterococcus faecalis as well as E. coli Mixed resistance pattern I suspect that she probably is not having a complete response to any of these treatments I would recommend treatment with Zosyn now, she was resistant to ceftriaxone on the PCR If we can get several days of IV treatment with Zosyn, I would like to convert her to nitrofurantoin 100 mg twice per day for 30 days followed by 100 mg daily ongoing thereafter No plan for any surgical interventionI do not believe the hydronephrosis/peripelvic cyst has any significant contribution to her current status Admission and Anticipated Discharge Date Admission Date: January 18, 2025 Subjective 69-year-old female with some longstanding dementia but increased mental status changes leading to the recurrent hospitalization 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 coli They have different sensitivity patterns but a pulled sensitivity implies that she should respond to several antibiotics Unfortunately she has had a pattern of having recurrent symptoms shortly after treatment for any infection She has limited options in terms of treatment secondary to her resistance She reports that she feels well today but she is accompanied by her son and we had a phone conversation with her daughter as well who reports that she absolutely has balance and mental status changes when she seems to be infected She is hemodynamically stable and afebrile Physical Exam Physical Exam: Abdomen soft, nontender Results & Data Vital Signs (Past 12 Hours) Vital Signs Temp Pulse Pulse Resp BP Pulse Ox O2 Del Method 01/19/25 11:32 36.3 C L 91 H 20 123/74 94 Room Air 01/19/25 08:19 36.7 C 98 H 20 136/92 95 Room Air 01/19/25 07:24 89 01/19/25 03:05 36.5 C 86 16 129/76 93 Room Air PG Care Time/CCT Total # of Minutes Spent Total Time Spent with Patient: Total time spent is greater than 50% in coordination of care (as documented) at patient's floor/unit and/or counseling patient: Coding Level of Care Code 01213 SUB INP/OBS CARE 2MIN Diagnoses UTI (urinary tract infection), bacterial N39.0; A49.9
--- NOTE | 2025-01-19 15:33 | Infectious Disease Consult ---
Date of Consultation January 19, 2025 Assessment & Plan (1) Dementia: (2) Confusion: (3) Generalized weakness: (4) Hydronephrosis: Plan This is a 69-year-old female with a past medical history of vascular dementia hydronephrosis requiring ureteral stents who presents to the ED with weakness. Her legs gave out. Noted for confusion, shortness of breath with laying down and right shoulder pain. She had been receiving Macrobid for possible UTI. Prior to that she finished course of Augmentin for UTI.. On admission she is afebrile and hemodynamically stable. She is on room air. Labs WBC 4.34, BUN 11, creatinine 0.96, procalcitonin less than 0.02, urinalysis with greater than 50 WBC, 3-5 epithelial cells. Chest x-ray shows no acute findings. CTAP shows recurrent focal hydronephrosis of the posterior upper left renal collecting system due to mass effect from adjacent large peripelvic cyst. Left lower lobe pneumonia. Head CT shows no intracranial hemorrhage seen. She was evaluated by urology. No surgical intervention. Urine culture with no growth to date. She received a dose of ceftriaxone and doxycycline. Infectious disease consulted for history of recurrent UTIs An E consult without video evaluation completed as video/camera is not working Microbiology Urine culture NGTD Antibiotics Ceftriaxone 01/18 Doxycycline 01/18 # Weakness #Asymptomatic Pyuria/Bacteriuria # History of recurrent UTIs # Recurrent Focal Hydronephrosis 2/2 peripelvic cyst # Status post lumbar fusion Discussion: Urinalysis with pyuria/bacteruria however many epithelial cells- likely contaminated. She cannot report if she has urinary symptoms due to dementia, but no documentation of local signs on exam or report of UTI symptoms per family on admission. She has recurrent focal hydronephrosis from mass effect from large peripelvic cyst on imagin. Chest x-ray is clear but CTAP shows left lower lobe pneumonia. She has a normal procalcitonin. And is on room air. Recommendations: Would continue to monitor off of antibiotics unless symptomatic for UTi. No strong evidence for pneumonia or symptomatic UTI per chart review. sample has many epi cells an likely contaminated. She has completed a course of Augmentin followed by Macrobid for UTI prior to admission. Unnecessary abx put her at risk for developing Multi Drug Resistant organisms and Cdiff. Thank you for this consult. ID will sign off. Dilan Michaud MD, MPH Infectious Disease [facility] Call [phone] with questions Consultation Information This patient recommendation is based on a telemedicine consult request which was completed asynchronously through chart review and information provided by the primary physician. The patient was not seen or examined today. The evaluation is consultative in nature and all patient care and treatment decisions can either be accepted or rejected by the patient's primary hospital-based treating physician using their own independent medical judgment for their patient. [facility] contact information: Please call [facility] Call Center [phone]. (Phone Number For Physician Use Only) Time Spent Reviewing Chart: 31+ minutes History of Present Illness Reason for Consultation: History of recurrent UTIs Requesting Physician: Topher Mcgee MD Attending Physician: Topher Mcgee MD History of Present Illness This is a 69-year-old female with a past medical history of vascular dementia hydronephrosis requiring ureteral stents who presents to the ED with weakness. Her legs gave out. Noted for confusion, shortness of breath with laying down and right shoulder pain. She had been receiving Macrobid for possible UTI. Prior to that she finished course of Augmentin for UTI.. On admission she is afebrile and hemodynamically stable. She is on room air. Labs WBC 4.34, BUN 11, creatinine 0.96, procalcitonin less than 0.02, urinalysis with greater than 50 WBC, 3-5 epithelial cells. Chest x-ray shows no acute findings. CTAP shows recurrent focal hydronephrosis of the posterior upper left renal collecting system due to mass effect from adjacent large peripelvic cyst. Left lower lobe pneumonia. Head CT shows no intracranial hemorrhage seen. She was evaluated by urology. No intervention. Urine culture with no growth to date. She received a dose of ceftriaxone and doxycycline. Infectious disease consulted for histoy of recurrent UTIs An E consult without video evaluation completed as video/camera is not working Allergies Allergy/AdvReac Type Severity Reaction Status Date / Time No Known Allergies Allergy Verified 01/18/25 15:50 Home Medications Medication Instructions Recorded Confirmed Type bupropion HCl 150 mg tablet,12 hr 150 mg PO BID 08/05/23 01/18/25 History sustained-release clonidine HCl 0.1 mg tablet 0.1 mg PO HS 08/05/23 01/18/25 History gabapentin 300 mg capsule 300 mg PO BID 08/05/23 01/18/25 History trazodone 100 mg tablet 150 mg PO HS 08/05/23 01/18/25 History donepezil 10 mg tablet 10 mg PO HS 09/10/24 01/18/25 History famotidine 40 mg tablet 40 mg PO QDD 09/10/24 01/18/25 History hydrochlorothiazide 50 mg tablet 50 mg PO QAM 09/10/24 01/18/25 History amlodipine 5 mg tablet (Norvasc) 5 mg PO DAILY 09/24/24 01/18/25 History clonazepam 0.5 mg tablet 0.5 mg PO HS PRN Anxiety 09/24/24 01/18/25 History duloxetine 60 mg capsule,delayed 120 mg PO DAILY 09/24/24 01/18/25 History release tolterodine 2 mg tablet 2 mg PO AMHS 09/24/24 01/18/25 History meloxicam 7.5 mg tablet 7.5 mg PO DAILY 10/01/24 01/18/25 History cilostazol 50 mg tablet 50 mg PO BID 10/07/24 01/18/25 History losartan 100 mg tablet 100 mg PO DAILY 10/07/24 01/18/25 History methenamine hippurate 1 gram tablet 1 g PO BID #60 tabs 12/06/24 01/18/25 Rx carvedilol 12.5 mg tablet 12.5 mg PO BIDM 01/18/25 01/18/25 History nitrofurantoin 100 mg PO BID 01/18/25 01/18/25 History monohydrate/macrocrystals 100 mg capsule risperidone 1 mg tablet 1 mg PO QAM 01/18/25 01/18/25 History Patient History Medical History Prolonged QT interval Ambulatory dysfunction Dementia Cognitive decline Confusion Mild cognitive impairment Ambulatory dysfunction Lumbosacral spondylosis with radiculopathy HTN (hypertension) Carotid aneurysm, right Ascending aortic aneurysm GERD (gastroesophageal reflux disease) controlled, stable per pt Suspected sleep apnea per son-no previous sleep study Pulmonary hypertension RVSP 40-50 mmHg 08/2023 echo during hospitalization at [facility] in setting of acute exacerbation of heart failure, acute renal failure, UTI Hx of hydronephrosis (08/2023) Chronic back pain Memory changes improving with pain reduction per patient/son--son Leobardo is patient's c aregiver Sciatica Depression with anxiety Urinary urgency Hx of renal failure (08/2023) per son, recently had renal scan Hx of heart failure EF 55-60% HTN (hypertension) controlled, stable per pt History of nephrolithiasis (08/2023) inpt. at [facility] [place] Surgical History Hx of colonoscopy S/P cystoscopy with ureteral stent placement (08/21/23) History of lumbar surgery (2009) L4-L5 Social History Smoking Status: Former smoker Tobacco Type: Cigarettes Second Hand Exposure: No; Do You Dip or Chew Tobacco: No; Hx Alcohol Use: No Hx Substance Use: No Preferred Language: Yakut Communication Ability: Effective Manager Flight Required: No Beliefs That Will Affect Care: None Current Living Situation: Family Current Living Situation Comment: lives with son Other Information That Helps Us Care for You: No Feels Safe at Home: Yes Safety Concerns: Feels Safe At This Time Assistive Devices: Glasses, Walker and Wheelchair Results & Data Vital Signs (Past 12 Hours) Vital Signs Temp Pulse Pulse Resp BP Pulse Ox O2 Del Method 01/19/25 14:34 93 H 01/19/25 11:32 36.3 C L 91 H 20 123/74 94 Room Air 01/19/25 08:19 36.7 C 98 H 20 136/92 95 Room Air 01/19/25 07:24 89 Laboratory Results Laboratory Results - last 48 hr 01/18/25 01/18/25 01/18/25 12:04 12:10 12:11 WBC 4.34 L RBC 3.92 L Hgb 10.9 L POC Hgb 10.9 L Hct 33.2 L POC Hct 32 L MCV 84.7 MCH 27.8 MCHC 32.8 RDW Std Deviation 41.8 RDW Coeff of Vamsi 13.5 Plt Count 267 MPV 9.4 Immature Gran % (Auto) 0.7 Neut % (Auto) 59.1 Lymph % (Auto) 17.3 Leslie % (Auto) 11.8 Eos % (Auto) 10.4 Baso % (Auto) 0.7 Neut # (Auto) 2.57 Lymph # (Auto) 0.75 L Leslie # (Auto) 0.51 Eos # (Auto) 0.45 Baso # (Auto) 0.03 Immature Gran # (Auto) 0.03 PT 10.3 INR 0.9 POC Sodium 142 Sodium 140 POC Potassium 3.0 L Potassium 3.0 L POC Chloride 100 L Chloride 103 Carbon Dioxide 30 POC Total CO2 25 Anion Gap 7 POC Anion Gap 20.0 POC BUN 10 BUN 11 Creatinine 0.96 POC Creatinine 1.0 Est Cr Clr Drug Dosing 57.6 eGFR 64.45 BUN/Creatinine Ratio 11.5 Glucose 135 H POC Glucose (other) 136 H Calcium 9.9 POC Ioniz Calcium Jhoan 1.27 Phosphorus 2.1 L Magnesium 1.8 Total Bilirubin 0.3 AST 12 L ALT 6 L Alkaline Phosphatase 54 Troponin I High Sens 84.8 H* C-Reactive Protein Total Protein 6.9 Albumin 3.9 Globulin 3.0 Albumin/Globulin Ratio 1.3 Lipase 13 Procalcitonin < 0.02 TSH 3.107 Urine Color Yellow Urine Appearance Clear Urine pH 6.0 Ur Specific [place] 1.020 Urine Protein 2+ H Urine Glucose (UA) Negative Urine Ketones Trace H Urine Blood Negative Urine Nitrite Negative Urine Bilirubin Negative Urine Urobilinogen Negative Ur Leukocyte Esterase 2+ H Urine WBC (Auto) >50 H Urine RBC (Auto) 3-5 H U Hyaline Cast (Auto) 3-5 H U Epithel Cells (Auto) 3-5 H Urine Bacteria (Auto) None Seen Urine Comment 01/18/25 01/18/25 01/19/25 13:52 20:20 08:51 WBC 5.03 RBC 4.11 L Hgb 11.4 L POC Hgb Hct 34.7 L POC Hct MCV 84.4 MCH 27.7 MCHC 32.9 RDW Std Deviation 41.7 RDW Coeff of Vamsi 13.5 Plt Count 273 MPV 9.1 L Immature Gran % (Auto) 0.2 Neut % (Auto) 70.8 Lymph % (Auto) 8.2 Leslie % (Auto) 11.9 Eos % (Auto) 8.3 Baso % (Auto) 0.6 Neut # (Auto) 3.56 Lymph # (Auto) 0.41 L Leslie # (Auto) 0.60 H Eos # (Auto) 0.42 Baso # (Auto) 0.03 Immature Gran # (Auto) 0.01 PT INR POC Sodium Sodium 140 POC Potassium Potassium 3.6 POC Chloride Chloride 106 Carbon Dioxide 29 POC Total CO2 Anion Gap 5 POC Anion Gap POC BUN BUN 8 Creatinine 0.72 POC Creatinine Est Cr Clr Drug Dosing 74.6 eGFR 91.02 BUN/Creatinine Ratio 11.1 Glucose 123 H POC Glucose (other) Calcium 9.7 POC Ioniz Calcium Jhoan Phosphorus Magnesium Total Bilirubin AST ALT Alkaline Phosphatase Troponin I High Sens 78.5 H* 80.2 H* 79.6 H* C-Reactive Protein 3.37 H 2.93 H Total Protein Albumin Globulin Albumin/Globulin Ratio Lipase Procalcitonin 0.06 TSH Urine Color Urine Appearance Urine pH Ur Specific [place] Urine Protein Urine Glucose (UA) Urine Ketones Urine Blood Urine Nitrite Urine Bilirubin Urine Urobilinogen Ur Leukocyte Esterase Urine WBC (Auto) Urine RBC (Auto) U Hyaline Cast (Auto) U Epithel Cells (Auto) Urine Bacteria (Auto) Urine Comment Microbiology 01/18/25 12:11 Urine,Clean Catch Urine Culture - Preliminary Pin-point growth present, reincubating. Diagnostic Findings Chest X-Ray 01/18/25 11:56 XR chest 1V portable CLINICAL HISTORY: weakness COMPARISON STUDY: 10/13/2024 FINDINGS: Heart size and pulmonary vasculature are normal. No consolidation or pleural effusion. No pneumothorax. IMPRESSION: No acute findings. ACT 112: Negative or not required by law. Electronically signed by: Tito Morales M.D. 01/18/2025 12:11 PM Abdomen/Pelvis CT 01/18/25 12:[address] WITH IV CONTRAST CT DOSE: 1997.63 mGy.cm HISTORY: ?UTI, weakness TECHNIQUE: Multiaxial CT images of the abdomen and pelvis were performed following the IV administration of 90 cc of Optiray, A dose lowering technique was utilized adhering to the principles of ALARA. COMPARISON STUDY: 08/25/2023 FINDINGS: There is stable elevation of the right hemidiaphragm. There is interval moderate sized area of reticular nodular and patchy groundglass opacity at the left lower lung lobe consistent with pneumonia. ABDOMEN: Liver, gallbladder, spleen, pancreas, and adrenal glands are unremarkable. There is no hydronephrosis on the right. The prior left ureteral stent has been removed. Parapelvic cyst at the left upper kidney measures 6 cm, stable. There is interval dilatation of the posterior left upper renal collecting system, similar to the 08/20/2023 exam, before the left ureteral stent was placed. This resolved with placement of the prior left ureteral stent. This is consistent with recurrent focal hydronephrosis at the posterior upper left renal collecting system due to mass effect from the large parapelvic cyst. There are multiple tiny left renal calculi. There is no dilatation of the left ureter and no left ureteral calculi. No abdominal aortic aneurysm. Pelvis: Uterus and adnexa are unremarkable. Urinary bladder is nondistended. There is mild sigmoid diverticulosis. No acute diverticulitis. No bowel inflammation or obstruction. Normal appendix. No free fluid or free air. No enlarged adenopathy. Osseous structures: There is laminectomy and posterior metallic fusion from L4 through S1. No acute osseous findings. IMPRESSION: 1. Recurrent focal hydronephrosis of the posterior upper left renal collecting system due to mass effect from adjacent large parapelvic cyst. 2. Left lower lobe pneumonia. 3. No other acute findings seen. Otherwise as described. ACT 112: Negative or not required by law. The above report was generated using voice recognition software. It may contain grammatical, syntax or spelling errors. Electronically signed by: Tito Morales M.D. 01/18/2025 1:[address] 01/18/25 12:39 CT head/brain wo con CLINICAL HISTORY: weakness. TECHNIQUE: Multiple axial CT images of the head were obtained without contrast. A dose lowering technique was utilized adhering to the principles of ALARA. COMPARISON: 10/07/2024. FINDINGS: No intracranial hemorrhage seen. No mass effect, midline shift, or hydrocephalus. Stable moderate chronic small vessel ischemic changes. No skull fracture seen. Visualized paranasal sinuses and mastoid air cells are clear. IMPRESSION: No acute findings. ACT 112: Negative or not required by law. The above report was generated using voice recognition software. It may contain grammatical, syntax or spelling errors. Electronically signed by: Tito Morales M.D. 01/18/2025 1:22 PM Medications Administered Home Medications Medication Instructions Recorded Confirmed Last Taken bupropion HCl 150 mg tablet,12 hr 150 mg PO BID 08/05/23 01/18/25 01/18/25 08:00 sustained-release clonidine HCl 0.1 mg tablet 0.1 mg PO HS 08/05/23 01/18/2501/17/25 gabapentin 300 mg capsule 300 mg PO BID 08/05/23 01/18/25 01/18/25 08:00 trazodone 100 mg tablet 150 mg PO HS 08/05/23 01/18/25 01/17/25 donepezil 10 mg tablet 10 mg PO HS 09/10/24 01/18/25 01/17/25 famotidine 40 mg tablet 40 mg PO QDD 09/10/24 01/18/25 01/17/25 hydrochlorothiazide 50 mg tablet 50 mg PO QAM 09/10/24 01/18/25 01/18/25 amlodipine 5 mg tablet (Norvasc) 5 mg PO DAILY 09/24/24 01/18/25 01/18/25 clonazepam 0.5 mg tablet 0.5 mg PO HS PRN Anxiety 09/24/24 01/18/25 10/13/24 17:00 duloxetine 60 mg capsule,delayed 120 mg PO DAILY 09/24/24 01/18/25 01/18/25 release tolterodine 2 mg tablet 2 mg PO AMHS 09/24/24 01/18/25 01/18/25 08:00 meloxicam 7.5 mg tablet 7.5 mg PO DAILY 10/01/24 01/18/25 01/18/25 cilostazol 50 mg tablet 50 mg PO BID 10/07/24 01/18/25 01/18/25 losartan 100 mg tablet 100 mg PO DAILY 10/07/24 01/18/25 01/18/25 methenamine hippurate 1 gram tablet 1 g PO BID #60 tabs 12/06/24 01/18/25 Unknown carvedilol 12.5 mg tablet 12.5 mg PO BIDM 01/18/25 01/18/25 01/18/25 nitrofurantoin 100 mg PO BID 01/18/25 01/18/25 01/18/25 08:00 monohydrate/macrocrystals 100 mg capsule risperidone 1 mg tablet 1 mg PO QAM 01/18/25 01/18/25 01/18/25 Active Medications Generic Name Dose Route Start Last Admin Trade Name Freq PRN Reason Stop Dose Admin Acetaminophen 650 mg 01/18/25 20:14 01/19/25 08:01 Acetaminophen 325 Mg Tab PO 02/17/25 20:13 650 mg Q4H PRN Administration Pain or Fever Amlodipine Besylate 5 mg 01/19/25 09:00 01/19/25 08:01 Amlodipine Besylate 5 Mg Tab PO 02/18/25 08:59 5 mg DAILY RENE Administration Bupropion HCl 150 mg 01/18/25 21:00 01/19/25 08:02 Bupropion Sr 150 Mg Tabcr PO 02/17/25 20:59 150 mg BID RENE Administration Carvedilol 12.5 mg 01/18/25 20:14 01/19/25 08:01 Carvedilol 12.5 Mg Tab PO 02/17/25 20:13 12.5 mg BIDM RENE Administration Cilostazol 50 mg 01/18/25 21:00 01/19/25 08:03 Cilostazol 100 Mg Tab PO 02/17/25 20:59 50 mg BID RENE Administration Clonidine HCl 0.1 mg 01/18/25 21:00 01/18/25 21:02 Clonidine Hcl 0.1 Mg Tab PO 02/17/25 20:59 0.1 mg HS RENE Administration Donepezil HCl 10 mg 01/18/25 21:00 01/18/25 21:33 Donepezil Hcl 10 Mg Tab PO 02/17/25 20:59 10 mg HS RENE Administration Duloxetine HCl 120 mg 01/19/25 09:00 01/19/25 08:01 Duloxetine Hcl 60 Mg Cap PO 02/18/25 08:59 120 mg DAILY RENE Administration Enoxaparin Sodium 40 mg 01/19/25 09:00 01/19/25 08:01 Enoxaparin Inj 40 Mg/0.4 Ml Syr SQ 02/18/25 08:59 40 mg QAM RENE Administration Famotidine 40 mg 01/18/25 20:14 01/18/25 21:32 Famotidine 40 Mg Tablet PO 02/17/25 20:13 40 mg QDD RENE Administration Gabapentin 300 mg 01/18/25 21:00 01/19/25 08:02 Gabapentin 300 Mg Cap PO 02/17/25 20:59 300 mg BID RENE Administration Hydrochlorothiazide 50 mg 01/19/25 09:00 01/19/25 08:02 Hydrochlorothiazide 25 Mg Tab PO 02/18/25 08:59 50 mg QAM RENE Administration Lactated Ringer's 1,000 mls @ 75 mls/hr 01/18/25 20:14 01/19/25 13:10 Lr IV 01/21/25 20:13 75 mls/hr .[id number] RENE Administration Losartan Potassium 100 mg 01/19/25 09:00 01/19/25 08:01 Losartan Potassium 50 Mg Tab PO 02/18/25 08:59 100 mg DAILY RENE Administration Meloxicam 7.5 mg 01/19/25 09:00 01/19/25 08:02 Meloxicam 7.5 Mg Tab PO 02/18/25 08:59 7.5 mg DAILY RENE Administration Oxybutynin Chloride 5 mg 01/19/25 09:00 01/19/25 08:01 Oxybutynin Chloride 5 Mg Tab PO 02/18/25 08:59 5 mg DAILY RENE Administration Risperidone 1 mg 01/19/25 09:00 01/19/25 08:02 Risperidone 1 Mg Tablet PO 02/18/25 08:59 1 mg QAM RENE Administration Trazodone HCl 150 mg 01/18/25 21:00 01/18/25 21:32 Trazodone Hcl 50 Mg Tab PO 02/17/25 20:59 150 mg HS RENE Administration (1) Dementia Dementia behavioral or psychological symptom: without behavioral, psychotic, or mood disturbance or anxiety Dementia severity: unspecified severity Dementia type: unspecified type Qualified Code(s): F03.90 - Unspecified demen tia, unspecified severity, without behavioral disturbance, psychotic disturbance, mood disturbance, and anxiety (4) Hydronephrosis Hydronephrosis type: unspecified Qualified Code(s): N13.30 - Unspecified hydronephrosis
[2025-01-20 06:00] LABS: Hematocrit (blood only) 33.8 % (37.0-47.0); Hemoglobin 11.1 g/dl (12.0-16.0); Immature Granulocytes # (auto) 0.01 K/uL (0.01-0.20); Immature Granulocytes % (auto) 0.2 %; Mean Corpuscular Hemoglobin 27.8 pg (25.0-34.0); Mean Corpuscular Volume 84.5 fL (80.0-100.0); Platelet Count 278 K/uL (130-400); RDW Standard Deviation 41.5 fL (36.4-46.3); Red Blood Count 4.00 M/uL (4.20-5.40); White Blood Count 4.27 K/ul (4.8-10.8)
[2025-01-20 06:15] LABS: Anion Gap 6.0 (3-11); Blood Urea Nitrogen 9.0 mg/dl (6-23); Calcium 9.5 mg/dl (8.6-10.3); Carbon Dioxide 30.0 mmol/L (21-32); Chloride 106.0 mmol/L (98-107); Creatinine Clr Calc Pharmacy 69.8 ml/min; Glucose 108.0 mg/dl (70-99(Fasting)); Potassium 3.2 mmol/L (3.5-5.1); Sodium 142.0 mmol/L (136-145)
--- NOTE | 2025-01-20 07:52 | Urology Progress Note ---
Date of Service January 20, 2025 Assessment & Plan (1) UTI (urinary tract infection), bacterial: Plan History of recurrent UTIs/chronic colonization Has had Enterococcus plus E. coli There is different sensitivities to the 2 antibiotics and although she has had a pooled antibiotic sensitivity, she has not seemed to completely improve with antibiotic treatments that have been prescribed previously We are currently planning Zosyn for several days of IV treatment followed by conversion to a long course of nitrofurantointhe combination of the 2 should address both the E. coli and enterococcus Currently tachycardic and hypertensive, defer to the hospitalist for this evalu ation Admission and Anticipated Discharge Date Admission Date: January 18, 2025 Subjective Subjectively denies any major complaints but she is hypertensive and tachycardic this morning Uncertain what is provoking this change She denies any abdominal pain No dysuria No hematuria We did change her medications yesterday but this would be an unusual reaction to switching antibiotics Physical Exam Physical Exam: Tachycardic Abdomen soft, nontender Results & Data Vital Signs (Past 12 Hours) Vital Signs Temp Pulse Pulse Resp BP BP Pulse Ox 01/20/25 07:19 36.8 C 114 H 18 175/114 H 173/99 H 93 01/20/25 02:47 37 C 111 H 16 125/77 92 01/19/25 22:52 36.8 C 90 16 147/85 H 93 01/19/25 21:40 95 H 01/19/25 20:14 Pulse Ox O2 Del Method O2 Del Method 01/20/25 07:19 Room Air 01/20/25 02:47 Room Air 01/19/25 22:52 Room Air 01/19/25 21:40 01/19/25 20:14 95 Room Air PG Care Time/CCT Total # of Minutes Spent Total Time Spent with Patient: Total time spent is greater than 50% in coordination of care (as documented) at patient's floor/unit and/or counseling patient: Coding Level of Care Code 16014 SUB INP/OBS CARE 2/35MIN Diagnoses UTI (urinary tract infection), bacterial N39.0; A49.9
[2025-01-20] MEDS: SODIUM CHLORIDE 0.9% 500 ML IV ONE (09:56)
[2025-01-20] MEDS: PIPERACILLIN/TAZOBACTAM 4.5 GM/100 ML BAG IV ONE (09:56)
[2025-01-20] MEDS: PIPERACILLIN/TAZOBACTAM 4.5 GM/100 ML BAG IV SCH (15:34)
--- NOTE | 2025-01-20 15:57 | Hospitalist Progress Note ---
Date of Service January 20, 2025 Assessment & Plan (1) Weakness: (2) Pneumonia: (3) Hypokalemia: Plan Patient with history of vascular dementia is currently stable whose only complaint is mainly leg weakness, which the son says she gets whenever she is sick. Patient's son denied any bacterial symptoms such as fever, and N/V. Urinalysis came back unremarkable, and urine culture is pending. CXR showed no acute findings though CT abd/pelvis showed LLL pneumonia and a recurrent focal hydronephrosis of the posterior upper left renal collecting system due to mass effect from adjacent large parapelvic cyst. Head CT came back with no acute findings. Weakness -Multifactorial, clinically improving, predominantly likely secondary to recurrent urinary tract infection as outlined below - Resume normal diet, continue supportive cares, PT and OT assessment if this persists - Adeqquate oral intake, DC IVF Recurrent complicated UTI - Urology consultation, discussion with those providers she has had recurrent PCR proven polymicrobial UTI with Enterococcus and E. coli in the outpatient setting -Minimal elevation in CRP, negative procalcitonin, CRP improving with single dose of Rocephin minimizing the likelihood that Enterococcus is playing an active role at this time - Most recently treated with a prolonged course of Augmentin, multiple rapid recurrences after cessation of antibiotic therapy - Possible mild hydronephrosis although no intervention at this time, undetermined significance of cyst in relation to recurrent infections - Current plan for broad-spectrum coverage with Zosyn, transition to nitrofurantoin for extended course and potential prophylaxis per urology if needed - See ID consult, likely low risk of active infection, plan to complete initial course of zosyn and transition to o/p evaluation, clinically improving. - Highly likely chronic colonization, increasd risk for developing MDR infections with recurrent abx course. will monitor closely, family updated and educated on plan. Atelectasis versus pneumonia -Noted on CT, no respiratory symptoms, atelectasis likely secondary to regional inflammation from recurrent UTIs, no evidence of ongoing SIRS at this time -Antibiotics as above, continue to follow CRP for trending -Decrease LR to 75 cc cc per hour, no procedure planned as above. Resume normal diet, stop IVF once she is eating well. -Abx as above, no further evaluation necessary at this time. Elevated Troponin -No recurrence of pain or symptoms, no further testing necessary at this time Hypokalemia - Normalized after supplementation - Recheck in AM Full Code Status -DVT Prophylaxis: 40mg Lovenox Admission and Anticipated Discharge Date Admission Date: January 18, 2025 Subjective Subjectively denies any major complaints but she is hypertensive and tachycardic this morning Uncertain what is provoking this change She denies any abdominal pain No dysuria No hematuria We did change her medications yesterday but this would be an unusual reaction to switching antibiotics Physical Exam Physical Exam: Tachycardic Abdomen soft, nontender Constitutional: WD/WN, vitals as above ENMT: Sclera clear, mucous membranes moist Respiratory: Clear to auscultation bilaterally Cardiovascular: Regular rate and rhythm no murmurs rubs or gallops Gastrointestinal (Abdomen): Normal bowel sounds, no costovertebral angle tenderness Skin: No rash or discoloration Results & Data Results & Data Vital Signs (Past 12 Hours) Vital Signs Temp Pulse Pulse Resp BP BP Pulse Ox 01/20/25 15:42 94 H 01/20/25 15:03 36.4 C L 96 H 18 132/83 95 01/20/25 11:29 36.3 C L 97 H 20 100/66 94 01/20/25 09:42 01/20/25 08:21 112 H 01/20/25 07:19 36.8 C 114 H 18 175/114 H 173/99 H 93 O2 Del Method 01/20/25 15:42 01/20/25 15:03 Room Air 01/20/25 11:29 Room Air 01/20/25 09:42 Room Air 01/20/25 08:21 01/20/25 07:19 Room Air Laboratory Results 01/18/25 12:11 Urine Culture - Final Urine,Clean Catch Three types of organisms present, all low counts probable skin marlee. No further identifications or sensitivities to follow. 01/20/25 05:25 WBC 4.27 L RBC 4.00 L Hgb 11.1 L Hct 33.8 L MCV 84.5 MCH 27.8 MCHC 32.8 RDW Std Deviation 41.5 RDW Coeff of Vamsi 13.4 Plt Count 278 MPV 9.2 L Immature Gran % (Auto) 0.2 Neut % (Auto) 58.3 Lymph % (Auto) 18.5 [place] % (Auto) 13.6 Eos % (Auto) 8.9 Baso % (Auto) 0.5 Neut # (Auto) 2.49 Lymph # (Auto) 0.79 L [place] # (Auto) 0.58 Eos # (Auto) 0.38 Baso # (Auto) 0.02 Immature Gran # (Auto) 0.01 Sodium 142 Potassium 3.2 L Chloride 106 Carbon Dioxide 30 Anion Gap 6 BUN 9 Creatinine 0.77 Est Cr Clr Drug Dosing 69.8 eGFR 83.97 BUN/Creatinine Ratio 11.7 Glucose 108 H Calcium 9.5 C-Reactive Protein 3.05 H PG Care Time/CCT Total # of Minutes Spent Total Time Spent with Patient: Total time spent is greater than 50% in coordination of care (as documented) at patient's floor/unit and/or counseling patient: Coding Level of Care Code 56707 SUB INP/OBS CARE 2/35MIN Diagnoses Weakness R53.1 Pneumonia J18.9 Hypokalemia E87.6
[2025-01-21 07:12] LABS: Hematocrit (blood only) 31.4 % (37.0-47.0); Hemoglobin 10.9 g/dl (12.0-16.0); Immature Granulocytes # (auto) 0.02 K/uL (0.01-0.20); Immature Granulocytes % (auto) 0.5 %; Mean Corpuscular Hemoglobin 29.0 pg (25.0-34.0); Mean Corpuscular Volume 83.5 fL (80.0-100.0); Platelet Count 279 K/uL (130-400); RDW Standard Deviation 40.7 fL (36.4-46.3); Red Blood Count 3.76 M/uL (4.20-5.40); White Blood Count 3.73 K/ul (4.8-10.8)
[2025-01-21 07:41] LABS: Anion Gap 8.0 (3-11); Blood Urea Nitrogen 7.0 mg/dl (6-23); Calcium 9.3 mg/dl (8.6-10.3); Carbon Dioxide 29.0 mmol/L (21-32); Chloride 105.0 mmol/L (98-107); Creatinine Clr Calc Pharmacy 65.8 ml/min; Glucose 115.0 mg/dl (70-99(Fasting)); Potassium 2.9 mmol/L (3.5-5.1); Sodium 142.0 mmol/L (136-145)
--- NOTE | 2025-01-21 10:50 | Urology Progress Note ---
Date of Service January 21, 2025 Assessment & Plan (1) Dementia: (2) Confusion: (3) UTI (urinary tract infection), bacterial: Plan Phone conversation yesterday with primary team She has been admitted with mental status changes in the setting of underlying dementia She has had longstanding positive cultures with uncertain symptomatology She has had Enterococcus and E. coli Consultation was placed to both urology and infectious diseasethis is somewhat redundant given that we are both managing the same problem and unfortunately we have delivered some conflicting reports Urology will sign off My plan has been communicated through the notes and I communicated directly to the hospitalist team, I think it is best to simplify this plan rather than continue to utilize both specialty services for the same problem Admission and Anticipated Discharge Date Admission Date: January 18, 2025 Subjective Subjectively seems to be slightly better today although she remains hypertensive with her most recent blood pressure being 181/117 and she is still tachycardic Mentally seems to be relatively clear and denies any dysuria or hematuria Physical Exam Physical Exam: Abdomen soft, nontender, no CVA tenderness in the right and left, persistently tachycardic Results & Data Vital Signs (Past 12 Hours) Vital Signs Temp Pulse Pulse Resp BP Pulse Ox O2 Del Method 01/21/25 07:08 36.6 C 108 H 20 181/117 H 93 Room Air 01/21/25 06:45 100 H 01/21/25 03:32 36.5 C 94 H 20 129/86 92 Room Air 01/21/25 00:46 36.8 C 88 20 115/79 92 Room Air PG Care Time/CCT Total # of Minutes Spent Total Time Spent with Patient: Total time spent is greater than 50% in coordination of care (as documented) at patient's floor/unit and/or counseling patient: Coding Level of Care Code 04964 SUB INP/OBS CARE 05/31MIN Diagnoses Dementia F03.90 Dementia behavioral or psychological symptom: without behavioral, psychotic, or mood disturbance or anxiety Dementia severity: unspecified severity Dementia type: unspecified type Confusion R41.0 UTI (urinary tract infection), bacterial N39.0; A49.9 (1) Dementia Dementia behavioral or psychological symptom: without behavioral, psychotic, or mood disturbance or anxiety Dementia severity: unspecified severity Dementia type: unspecified type Qualified Code(s): F03.90 - Unspecified dementia, unspecified severity, without behavioral disturbance, psychotic disturbance, mood disturbance, and anxiety
--- NOTE | 2025-01-21 11:47 | Electrocardiogram Report ---
Test Reason : Blood Pressure : */* mmHG Vent. 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
--- NOTE | 2025-01-21 13:25 | History & Physical Report ---
Date of Service January 21, 2025 Assessment & Plan (1) Weakness: (2) Pneumonia: (3) Hypokalemia: Plan Patient with history of vascular dementia is currently stable whose only complaint is mainly leg weakness, which the son says she gets whenever she is sick. Patient's son denied any bacterial symptoms such as fever, and N/V. Urinalysis came back unremarkable, and urine culture is pending. CXR showed no acute findings though CT abd/pelvis showed LLL pneumonia and a recurrent focal hydronephrosis of the posterior upper left renal collecting system due to mass effect from adjacent large parapelvic cyst. Head CT came back with no acute findings. Weakness -Multifactorial, clinically improving, predominantly likely secondary to recurrent urinary tract infection as outlined below - Resume normal diet, continue supportive cares, PT and OT assessment if this persists - Adeqquate oral intake, DC IVF Recurrent complicated UTI - Urology consultation, discussion with those providers she has had recurrent PCR proven polymicrobial UTI with Enterococcus and E. coli in the outpatient setting -Minimal elevation in CRP, negative procalcitonin, CRP improving with single dose of Rocephin minimizing the likelihood that Enterococcus is playing an active role at this time - Most recently treated with a prolonged course of Augmentin, multiple rapid recurrences after cessation of antibiotic therapy - Possible mild hydronephrosis although no intervention at this time, undetermined significance of cyst in relation to recurrent infections - Current plan for broad-spectrum coverage with Zosyn, transition to nitrofurantoin for extended course and potential prophylaxis per urology if needed - See ID consult, likely low risk of active infection, plan to complete initial course of zosyn and transition to o/p evaluation, clinically improving. - Highly likely chronic colonization, increasd risk for developing MDR infections with recurrent abx course. will monitor closely, family updated and educated on plan. Atelectasis versus pneumonia -Noted on CT, no respiratory symptoms, atelectasis likely secondary to regional inflammation from recurrent UTIs, no evidence of ongoing SIRS at this time -Antibiotics as above, continue to follow CRP for trending -Decrease LR to 75 cc cc per hour, no procedure planned as above. Resume normal diet, stop IVF once she is eating well. -Abx as above, no further evaluation necessary at this time. Elevated Troponin -No recurrence of pain or symptoms, no further testing necessary at this time Hypokalemia - Normalized after supplementation - Recheck in AM Full Code Status -DVT Prophylaxis: 40mg Lovenox Admission and Anticipated Discharge Date Admission Date: January 18, 2025 History of Present Illness Primary Care Provider: Eren Peters MD Allergies Allergy/AdvReac Type Severity Reaction Status Date / Time No Known Allergies Allergy Verified 01/18/25 15:50 Home Medications Medication Instructions Recorded Confirmed Type bupropion HCl 150 mg tablet,12 hr 150 mg PO BID 08/05/23 01/18/25 History sustained-release clonidine HCl 0.1 mg tablet 0.1 mg PO HS 08/05/23 01/18/25 History gabapentin 300 mg capsule 300 mg PO BID 08/05/23 01/18/25 History trazodone 100 mg tablet 150 mg PO HS 08/05/23 01/18/25 History donepezil 10 mg tablet 10 mg PO HS 09/10/24 01/18/25 History famotidine 40 mg tablet 40 mg PO QDD 09/10/24 01/18/25 History hydrochlorothiazide 50 mg tablet 50 mg PO QAM 09/10/24 01/18/25 History amlodipine 5 mg tablet (Norvasc) 5 mg PO DAILY 09/24/24 01/18/25 History clonazepam 0.5 mg tablet 0.5 mg PO HS PRN Anxiety 09/24/24 01/18/25 History duloxetine 60 mg capsule,delayed 120 mg PO DAILY 09/24/24 01/18/25 History release tolterodine 2 mg tablet 2 mg PO AMHS 09/24/24 01/18/25 History meloxicam 7.5 mg tablet 7.5 mg PO DAILY 10/01/24 01/18/25 History cilostazol 50 mg tablet 50 mg PO BID 10/07/24 01/18/25 History losartan 100 mg tablet 100 mg PO DAILY 10/07/24 01/18/25 History methenamine hippurate 1 gram tablet 1 g PO BID #60 tabs 12/06/24 01/18/25 Rx carvedilol 12.5 mg tablet 12.5 mg PO BIDM 01/18/25 01/18/25 History nitrofurantoin 100 mg PO BID 01/18/25 01/18/25 History monohydrate/macrocrystals 100 mg capsule risperidone 1 mg tablet 1 mg PO QAM 01/18/25 01/18/25 History Past Med/Surg History Problem List (Updated 01/18/25 @ 19:39 by Sterling Suero MD) Dementia (Acute) Confusion (Acute) Pneumonia (Acute) Generalized weakness (Acute) Hydronephrosis (Acute) Hypokalemia (Acute) Pneumonia Weakness Status post lumbar spinal fusion Lumbar spinal stenosis Lumbosacral radiculopathy Idiopathic polyneuropathy Leg weakness, bilateral UTI (urinary tract infection), bacterial UTI symptoms Tremor Medical History Prolonged QT interval Ambulatory dysfunction Dementia Cognitive decline Confusion Mild cognitive impairment Ambulatory dysfunction Lumbosacral spondylosis with radiculopathy HTN (hypertension) Carotid aneurysm, right Ascending aortic aneurysm GERD (gastroesophageal reflux disease) controlled, stable per pt Suspected sleep apnea per son-no previous sleep study Pulmonary hypertension RVSP 40-50 mmHg 08/2023 echo during hospitalization at [facility] in setting of acute exacerbation of heart failure, acute renal failure, UTI Hx of hydronephrosis (08/2023) Chronic back pain Memory changes improving with pain reduction per patient/son--son Leobardo is patient's caregiver Sciatica Depression with anxiety Urinary urgency Hx of renal failure (08/2023) per son, recently had renal scan Hx of heart failure EF 55-60% HTN (hypertension) controlled, stable per pt History of nephrolithiasis (08/2023) inpt. at [facility] Surgical History Hx of colonoscopy S/P cystoscopy with ureteral stent placement (08/21/23) History of lumbar surgery (2009) L4-L5 Social History Smoking Status: Former smoker Tobacco Type: Cigarettes Second Hand Exposure: No; Do You Dip or Chew Tobacco: No; Hx Alcohol Use: No Hx Substance Use: No Preferred Language: Polish Communication Ability: Effective Conservator Artifacts Required: No Beliefs That Will Affect Care: None Current Living Situation: Family Current Living Situation Comment: lives with son Feels Safe at Home: Yes Assistive Devices: Glasses, Walker and Wheelchair Results & Data Results & Data Vital Signs (Past 12 Hours) Vital Signs Temp Pulse Pulse Resp BP Pulse Ox O2 Del Method 01/21/25 11:39 36.3 C L 103 H 20 130/87 93 Room Air 01/21/25 07:08 36.6 C 108 H 20 181/117 H 93 Room Air 01/21/25 06:45 100 H 01/21/25 03:32 36.5 C 94 H 20 129/86 92 Room Air Code Status & VTE Plan VTE Prophylaxis Plan VTE Prophylaxis will be ordered: Yes PG Care Time/CCT Total # of Minutes Spent Total Time Spent with Patient: Total time spent is greater than 50% in coordination of care (as documented) at patient's floor/unit and/or counseling patient: Coding Diagnoses Weakness R53.1 Pneumonia J18.9 Hypokalemia E87.6
--- NOTE | 2025-01-21 13:34 | Hospitalist Progress Note ---
Date of Service January 21, 2025 Assessment & Plan (1) Weakness: (2) Pneumonia: (3) Hypokalemia: Admission and Anticipated Discharge Date Admission Date: January 18, 2025 Physical Exam Physical Exam: Tachycardic Abdomen soft, nontender Constitutional: WD/WN, vitals as above Results & Data Results & Data Vital Signs (Past 12 Hours) Vital Signs Temp Pulse Pulse Resp BP Pulse Ox O2 Del Method 01/21/25 11:39 36.3 C L 103 H 20 130/87 93 Room Air 01/21/25 07:08 36.6 C 108 H 20 181/117 H 93 Room Air 01/21/25 06:45 100 H 01/21/25 03:32 36.5 C 94 H 20 129/86 92 Room Air PG Care Time/CCT Total # of Minutes Spent Total Time Spent with Patient: Total time spent is greater than 50% in coordination of care (as documented) at patient's floor/unit and/or counseling patient: Coding Diagnoses Weakness R53.1 Pneumonia J18.9 Hypokalemia E87.6
--- NOTE | 2025-01-21 13:51 | Hospitalist Progress Note ---
Date of Service January 21, 2025 Assessment & Plan (1) Weakness: (2) Pneumonia: (3) Hypokalemia: (4) Recurrent UTI: Plan Patient with history of vascular dementia is currently stable whose only complaint is mainly leg weakness, which the son says she gets whenever she is sick. Patient's son denied any bacterial symptoms such as fever, and N/V. Urinalysis came back unremarkable, and urine culture is pending. CXR showed no acute findings though CT abd/pelvis showed LLL pneumonia and a recurrent focal hydronephrosis of the posterior upper left renal collecting system due to mass effect from adjacent large parapelvic cyst. Head CT came back with no acute findings. Weakness - Multifactorial, clinically back to baseline - Resume normal diet, continue supportive cares, PT and OT assessment consistent with 27/11 support, which her son provides. - Adeqquate oral intake, DC IVF, monitor intake Recurrent complicated UTI - Urology consultation, discussion with those providers she has had recurrent PCR proven polymicrobial UTI with Enterococcus and E. coli in the outpatient setting -Minimal elevation in CRP, negative procalcitonin, CRP improving with single dose of Rocephin minimizing the likelihood that Enterococcus is playing an active role at this time - Most recently treated with a prolonged course of Augmentin, multiple rapid recurrences after cessation of antibiotic therapy - Possible mild hydronephrosis although no intervention at this time, undetermined significance of cyst in relation to recurrent infections - Current plan for broad-spectrum coverage with Zosyn, transition to nitrofurantoin for extended course and potential prophylaxis per urology if needed - See ID consult, likely low risk of active infection, plan to complete initial course of zosyn and transition to o/p evaluation, clinically improving. - Highly likely chronic colonization, increased risk for developing MDR infections with recurrent abx course. - Clinically she is at baseline, procalcitonin remained negative, CRP trending appropriately. will continue zosyn, difficult to determine adequate time frame, plan to transition to oral macrobid tomorrow and continue to follow CRP trend. Atelectasis versus pneumonia -Noted on CT, no respiratory symptoms, atelectasis likely secondary to regional inflammation from recurrent UTIs, no evidence of ongoing SIRS at this time -Antibiotics as above, continue to follow CRP for trending -DC IVF, Resume normal diet, stop IVF once she is eating well. -Abx as above, no further evaluation necessary at this time. Elevated Troponin -No recurrence of pain or symptoms, no further testing necessary at this time Hypokalemia - Normalized after supplementation - Recheck in AM Full Code Status -DVT Prophylaxis: 40mg Lovenox Admission and Anticipated Discharge Date Admission Date: January 18, 2025 Subjective Doing well this morning according to family. She slept well, eating breakfast well. Back to her baseline. Lengthy discussion with the patient and her family in regards to recurrent UTIs. Mother acts like symptoms. Reviewed the current plan for broad-spectrum coverage with transitioning to Macrobid for prophylaxis and close follow-up in the outpatient clinic to determine long-term necessity. Also introduced the possibility of other factors contributing to his weakness and confusion episodes. Encouraged strongly to follow-up closely with primary care for management in the inpatient setting. Otherwise she is working with PT and OT. According to nursing no new events or concerns. All questions answered per family Physical Exam Physical Exam: Tachycardic Abdomen soft, nontender Constitutional: WD/WN, vitals as above ENMT: Sclera clear, mucous membranes moist Respiratory: Clear to auscultation bilaterally Cardiovascular: Regular rate and rhythm no murmurs rubs or gallops Gastrointestinal (Abdomen): Normal bowel sounds, no costovertebral angle tenderness Skin: No rash or discoloration Results & Data Results & Data Vital Signs (Past 12 Hours) Vital Signs Temp Pulse Pulse Resp BP Pulse Ox O2 Del Method 01/21/25 11:39 36.3 C L 103 H 20 130/87 93 Room Air 01/21/25 07:08 36.6 C 108 H 20 181/117 H 93 Room Air 01/21/25 06:45 100 H 01/21/25 03:32 36.5 C 94 H 20 129/86 92 Room Air Laboratory Results 01/21/25 06:37 WBC 3.73 L RBC 3.76 L Hgb 10.9 L Hct 31.4 L MCV 83.5 MCH 29.0 MCHC 34.7 RDW Std Deviation 40.7 RDW Coeff of Vamsi 13.2 Plt Count 279 MPV 9.1 L Immature Gran % (Auto) 0.5 Neut % (Auto) 49.3 Lymph % (Auto) 26.3 [place] % (Auto) 12.3 Eos % (Auto) 10.5 Baso % (Auto) 1.1 Neut # (Auto) 1.84 Lymph # (Auto) 0.98 L [place] # (Auto) 0.46 Eos # (Auto) 0.39 Baso # (Auto) 0.04 Immature Gran # (Auto) 0.02 Sodium 142 Potassium 2.9 L Chloride 105 Carbon Dioxide 29 Anion Gap 8 BUN 7 Creatinine 0.82 Est Cr Clr Drug Dosing 65.8 eGFR 77.87 BUN/Creatinine Ratio 8.5 L Glucose 115 H Calcium 9.3 C-Reactive Protein 1.63 H Procalcitonin < 0.02 PG Care Time/CCT Total # of Minutes Spent Total Time Spent with Patient: Total time spent is greater than 50% in coordination of care (as documented) at patient's floor/unit and/or counseling patient: Coding Level of Care Code 25130 SUB INP/OBS CARE 2/35MIN Diagnoses Weakness R53.1 Pneumonia J18.9 Hypokalemia E87.6 Recurrent UTI N39.0
[2025-01-21] MEDS: MELATONIN 3 MG TAB PO PRN (20:24)
[2025-01-22] MEDS: POTASSIUM CHLORIDE CRTAB 20 MEQ TABCR PO SCH (08:15)
[2025-01-22 11:47] LABS: Hematocrit (blood only) 34.4 % (37.0-47.0); Hemoglobin 11.7 g/dl (12.0-16.0); Immature Granulocytes # (auto) 0.02 K/uL (0.01-0.20); Immature Granulocytes % (auto) 0.4 %; Mean Corpuscular Hemoglobin 28.8 pg (25.0-34.0); Mean Corpuscular Volume 84.7 fL (80.0-100.0); Platelet Count 316 K/uL (130-400); RDW Standard Deviation 41.1 fL (36.4-46.3); Red Blood Count 4.06 M/uL (4.20-5.40); White Blood Count 4.62 K/ul (4.8-10.8)
[2025-01-22 12:02] LABS: Anion Gap 6.0 (3-11); Blood Urea Nitrogen 9.0 mg/dl (6-23); Calcium 9.7 mg/dl (8.6-10.3); Carbon Dioxide 31.0 mmol/L (21-32); Chloride 102.0 mmol/L (98-107); Creatinine Clr Calc Pharmacy 58.7 ml/min; Glucose 148.0 mg/dl (70-99(Fasting)); Potassium 3.4 mmol/L (3.5-5.1); Sodium 139.0 mmol/L (136-145)
--- NOTE | 2025-01-22 16:53 | Hospitalist Progress Note ---
Date of Service January 22, 2025 Assessment & Plan (1) Weakness: (2) Pneumonia: (3) Hypokalemia: (4) Recurrent UTI: Plan Patient with history of vascular dementia is currently stable whose only complaint is mainly leg weakness, which the son says she gets whenever she is sick. Patient's son denied any bacterial symptoms such as fever, and N/V. Urinalysis came back unremarkable, and urine culture is pending. CXR showed no acute findings though CT abd/pelvis showed LLL pneumonia and a recurrent focal hydronephrosis of the posterior upper left renal collecting system due to mass effect from adjacent large parapelvic cyst. Head CT came back with no acute findings. Weakness - Multifactorial, clinically back to baseline - Resume normal diet, continue supportive cares, PT and OT assessment consistent with 27/11 support, which her son provides. - Adeqquate oral intake, DC IVF, monitor intake - Back to baseline Recurrent complicated UTI -Completed 3-day course of Zosyn, CRP and Pro-Marcus have normalized. Will transition to Macrobid today, discharge tomorrow morning if CRP remains -macrobid tomorrow and continue to follow CRP trend. Atelectasis versus pneumonia -Noted on CT, no respiratory symptoms, atelectasis likely secondary to regional inflammation from recurrent UTIs, no evidence of ongoing SIRS at this time -Antibiotics as above, continue to follow CRP for trending -DC IVF, Resume normal diet, stop IVF once she is eating well. -Abx as above, no further evaluation necessary at this time. Elevated Troponin -No recurrence of pain or symptoms, no further testing necessary at this time Hypokalemia - Normalized after supplementation - Recheck in AM - Discharged with 20 mg daily Full Code Status -DVT Prophylaxis: 40mg Lovenox Admission and Anticipated Discharge Date Admission Date: January 18, 2025 Subjective Doing very well this morning, sitting in the chair, eating breakfast. No significant shortness of breath, no new complaints or concerns. States she is feeling much better today than yesterday. Good oral intake, working with PT and OT Physical Exam Physical Exam: Tachycardic Abdomen soft, nontender Constitutional: WD/WN, vitals as above ENMT: Sclera clear, mucous membranes moist Respiratory: Clear to auscultation bilaterally Cardiovascular: Regular rate and rhythm no murmurs rubs or gallops Gastrointestinal (Abdomen): Normal bowel sounds, no costovertebral angle tenderness Skin: No rash or discoloration Results & Data Results & Data Vital Signs (Past 12 Hours) Vital Signs Temp Pulse Pulse Resp BP Pulse Ox O2 Del Method 01/22/25 15:22 36.3 C L 97 H 20 143/87 H 97 Room Air 01/22/25 14:03 72 01/22/25 12:18 36.5 C 95 H 20 117/78 93 Room Air 01/22/25 07:51 96 H 01/22/25 07:35 36.6 C 100 H 20 148/94 H 93 Room Air Laboratory Results 01/22/25 11:20 WBC 4.62 L RBC 4.06 L Hgb 11.7 L Hct 34.4 L MCV 84.7 MCH 28.8 MCHC 34.0 RDW Std Deviation 41.1 RDW Coeff of Vamsi 13.2 Plt Count 316 MPV 9.0 L Immature Gran % (Auto) 0.4 Neut % (Auto) 62.8 Lymph % (Auto) 16.9 Floyd % (Auto) 10.0 Eos % (Auto) 9.3 Baso % (Auto) 0.6 Neut # (Auto) 2.90 Lymph # (Auto) 0.78 L Floyd # (Auto) 0.46 Eos # (Auto) 0.43 Baso # (Auto) 0.03 Immature Gran # (Auto) 0.02 Sodium 139 Potassium 3.4 L Chloride 102 Carbon Dioxide 31 Anion Gap 6 BUN 9 Creatinine 0.92 Est Cr Clr Drug Dosing 58.7 eGFR 67.82 BUN/Creatinine Ratio 9.8 L Glucose 148 H Calcium 9.7 C-Reactive Protein 0.93 H PG Care Time/CCT Total # of Minutes Spent Total Time Spent with Patient: Total time spent is greater than 50% in coordination of care (as documented) at patient's floor/unit and/or counseling patient: Coding Level of Care Code 77776 SUB INP/OBS CARE 2/35MIN Diagnoses Weakness R53.1 Pneumonia J18.9 Hypokalemia E87.6 Recurrent UTI N39.0
[2025-01-22] MEDS: NITROFURANTOIN MONOHYDRATE 100 MG CAP PO SCH (20:12)
[2025-01-23 03:50] VITALS: TEMP 97.9
[2025-01-23 06:18] LABS: Hematocrit (blood only) 33.0 % (37.0-47.0); Hemoglobin 10.8 g/dl (12.0-16.0); Immature Granulocytes # (auto) 0.02 K/uL (0.01-0.20); Immature Granulocytes % (auto) 0.5 %; Mean Corpuscular Hemoglobin 27.5 pg (25.0-34.0); Mean Corpuscular Volume 84.0 fL (80.0-100.0); Platelet Count 293 K/uL (130-400); RDW Standard Deviation 40.4 fL (36.4-46.3); Red Blood Count 3.93 M/uL (4.20-5.40); White Blood Count 4.20 K/ul (4.8-10.8)
[2025-01-23 06:44] LABS: Anion Gap 7.0 (3-11); Blood Urea Nitrogen 9.0 mg/dl (6-23); Calcium 9.6 mg/dl (8.6-10.3); Carbon Dioxide 29.0 mmol/L (21-32); Chloride 104.0 mmol/L (98-107); Creatinine Clr Calc Pharmacy 64.8 ml/min; Glucose 94.0 mg/dl (70-99(Fasting)); Potassium 3.3 mmol/L (3.5-5.1); Sodium 140.0 mmol/L (136-145)
[2025-01-23 07:51] VITALS: PULSE 104; RESP 16; O2SAT 93
--- NOTE | 2025-01-23 10:08 | Discharge Summary ---
Discharge Summary Date of Service January 23, 2025 Principal Dx & Hospital Course #1 = Principal Diagnosis (1) Weakness: (2) Pneumonia: (3) Hypokalemia: (4) Recurrent UTI: Plan Patient with history of vascular dementia is currently stable whose only complaint is mainly leg weakness, which the son says she gets whenever she is sick. Patient's son denied any bacterial symptoms such as fever, and N/V. Urinalysis came back unremarkable, and urine culture is pending. CXR showed no acute findings though CT abd/pelvis showed LLL pneumonia and a recurrent focal hydronephrosis of the posterior upper left renal collecting system due to mass effect from adjacent large parapelvic cyst. Head CT came back with no acute findings. Recurrent complicated UTI -Completed 3-day course of Zosyn, CRP and Pro-Marcus have trended downwards and normalized. At time of discharge CRP was 0.63. On the last day prior to discharge she was transition to p.o. Macrobid continued to trend downward. She was discharged with twice daily for 7 days. There remains ongoing concern for recurrent urinary tract infections. Urology was manage was consulted during hospital stay and can follow-up as an outpatient. Infectious disease was also consulted. In the outpatient setting if she develops symptoms again would advise repeat CRP and procalcitonin if treatment is warranted Macrobid versus Augmentin should cover the known urinary pathogens. Weakness - Multifactorial, clinically back to baseline at time of discharge. She is on a complex medication regimen that would pose additional ongoing risk of recurrent episodes of weakness. Will have her follow-up closely with primary clinic for medication refill and PharmD consult if available. She is under care of family 24/7 and extended and general increase in overall needs in the last several months. Hypokalemia - Normalized after supplementation, discharged with potassium supplement twice daily, recheck in primary clinic continue over the long-term if needed Atelectasis versus pneumonia -Noted on CT, no respiratory symptoms, atelectasis likely secondary to regional inflammation from recurrent UTIs, no evidence of ongoing SIRS at this time -Antibiotics as above, CRP normalized no recurrent symptoms - A recheck or follow-up CT can be completed in the outpatient setting if deemed beneficial. Elevated Troponin - She had a modest elevation in her high-sensitivity troponin on admission consistent with previous values this is above baseline. She had no chest pain symptoms telemetry unremarkable. No further evaluation was completed during this hospital stay Elevated blood pressure -She is on several medications has a history of labile blood pressures. These did spike typically in the morning but resolved with no further intervention. Advised to follow-up in the outpatient clinic for ongoing management Notes For Next Care Provider Recheck CBC, BMP in follow-up and C-reactive protein/procalcitonin if concerning for symptomatic infection arises Admission HPI Per Admitting Provider Patient is a 69 year old female with history of vascular dementia, presents into the ER with leg weakness with her son. Her son stated that for the past couple of days the patient was feeling weak. However, at one point her legs gave out and the son had to hold her. Her son also stated that whenever the patient gets sick that her legs get weak. Son said that the patient has lots of mental confusion. Son said that the patient had right shoulder pain that started today. Patient was on macrobid for what was thought as another UTI. Patient has 2 more doses left. Patient finished Augmentin a week and a half ago. Son says she took all her medications this morning. Patient's son did say she gets short of breath when only laying down. Patient also sees Neurology and had an EMG done 2 weeks ago showing neuropathy. Patient also had an MRI last Sunday. Patient sees Dr. Stubbs in urology. Patient's daughter is the medical power of collections attorney Patient's son denies fever, N/V, chest pain, palpitations, pain with urination, and abdominal pain. Discharge Exam Constitutional Alert and oriented, no apparent distress, appropriate interactions, general recall Respiratory Clear to auscultation bilaterally Cardiovascular Regular rate and rhythm with no murmurs rub or gallop Gastrointestinal (Abdomen) Normal bowel sounds, nontender Skin No pallor, rash or discoloration Neurologic Alert and oriented x 3, somewhat limited recall of events but appropriate and conversational. No focal deficits. Independently ambulatory Discharge Plan Discharge Items Patient Disposition: Home - Self-Care Reason For Visit: CONFSION AND LEG WEAKNESS Discharge Diagnosis: Complicated UTI Hypokalemia Chronic Troponin Elevation Condition on Discharge: Fair Activity: Resume your previous activity Non-emergency contact: Primary Care Provider Call non-emergency contact if: you have any medication questions, your symptoms worsen, you have a fever and your temperature is above 101 Follow-up/Referrals: Eren Peters MD [Primary Care Provider] - Diet: Regular Addtl Attending Provider Instructions: Continues Macrobid for at least 5 days after discharge Continue with the potassium supplement twice daily until seen in follow-up Follow-up with your primary provider within 5-7 days for recheck of your decision making potassium supplementation Follow-up in the urology clinic in the next 1 to 2 weeks to discuss long-term preventative antibiotics Otherwise resume your previous medications with no changes If you notice your symptoms change, previous symptoms return or if new or different symptoms appear nitroglycerin return to clinic or ER for evaluation. It was a pleasure taking care of you during this hospital stay please reach out to our team we can do to assist with ongoing care. Topher Mcgee MD Pending Studies at Discharge: No Stand-Alone Forms: [facility] [email or web address], Smoking Cessation Medications and DC Order Prescriptions: New potassium chloride 20 mEq Tablet,Er Particles/Crystals 20 meq PO BID 7 Days Qty: 14 0RF nitrofurantoin monohyd/m-cryst [Macrobid] 100 mg Capsule 100 mg PO BID 7 Days Qty: 14 0RF Continued methenamine hippurate 1 gram tablet 1 g PO BID Qty: 60 11RF amlodipine [Norvasc] 5 mg tablet 5 mg PO DAILY meloxicam 7.5 mg tablet 7.5 mg PO DAILY bupropion HCl 150 mg tablet sustained-release 12 hr 150 mg PO BID clonidine HCl 0.1 mg tablet 0.1 mg PO HS trazodone 100 mg tablet 150 mg PO HS gabapentin 300 mg capsule 300 mg PO BID clonazepam 0.5 mg tablet 0.5 mg PO HS PRN (Reason: Anxiety) duloxetine 60 mg capsule,delayed release(DR/EC) 120 mg PO DAILY tolterodine 2 mg tablet 2 mg PO AMHS hydrochlorothiazide 50 mg tablet 50 mg PO QAM donepezil 10 mg tablet 10 mg PO HS famotidine 40 mg tablet 40 mg PO QDD carvedilol 12.5 mg tablet 12.5 mg PO BIDM risperidone 1 mg tablet 1 mg PO QAM cilostazol 50 mg tablet 50 mg PO BID losartan 100 mg tablet 100 mg PO DAILY Discontinued nitrofurantoin monohyd/m-cryst 100 mg capsule 100 mg PO BID Rx Instructions: STARTED 01/13/25 FOR 7 DAYS Discharge Orders: Discharge Order (Routine); Ordered 01/23/25 Ordered By: Topher Cole/Other Patient Handouts: UTIs, ED Weakness with Uncertain Cause Admission Data Admit Date/Time: 01/18/25 17:57 Attending Provider: Topher Mcgee Admit Provider: Lefty Douglass Primary Care Provider: Eren Peters Other Providers: Geronimo Roy Hospital Stay Data Consultations 01/18/25 14:51 ED Decision to Admit Stat 01/18/25 18:00 Consult Urology Routine 01/19/25 10:04 Consult Infectious Diseases Routine Diagnostic Imagining Performed 01/18/25 12:39 CT abd pelvis IV con only Stat CT head/brain wo con Stat Pending Results Patient Have Any Pending Studies at Discharge: No Discharge Instructions Given to Patient (Per Discharging Provider) Continues Macrobid for at least 5 days after discharge Continue with the potassium supplement twice daily until seen in follow-up Follow-up with your primary provider within 5-7 days for recheck of your decision making potassium supplementation Follow-up in the urology clinic in the next 1 to 2 weeks to discuss long-term preventative antibiotics Otherwise resume your previous medications with no changes If you notice your symptoms change, previous symptoms return or if new or different symptoms appear nitroglycerin return to clinic or ER for evaluation. It was a pleasure taking care of you during this hospital stay please reach out to our team we can do to assist with ongoing care. Topher Mcgee MD Total Time Total Time Spent Total Time Spent (In Minutes): 25 minutes Coding Level of Care Code 48852 IN/OBS DISCH 30 MIN/LESS Diagnoses Weakness R53.1 Pneumonia J18.9 Hypokalemia E87.6 Recurrent UTI N39.0
[2025-01-23 10:15] VITALS: BP 173/99
== END 2025-01-23 11:05 | disposition home or self-care (01) | DRG 689 ==
LOC: ED 11:37 → SUATTDRO 17:57 → EDINP 17:57 → 2W 20:15